=== PATIENT | female | born 1950 | race Caucasian/White ===

== ENCOUNTER 2021-08-12 05:12 | Observation (INO) ==
--- NOTE | 2021-07-12 11:40 | PAT Medication Instructions ---
Medication Instructions Date of Service July 12, 2021 Home Medications albuterol sulfate 90 mcg/actuation aerosol inhaler 2 puff INHALATION 6XD PRN atorvastatin 40 mg tablet 40 mg PO HS calcium carbonate 600 mg-vitamin D3 10 mcg (400 unit) tablet (Calcium 600 + D(3)) 1 tab PO BID citalopram 20 mg tablet 20 mg PO HS cyanocobalamin (vitamin B-12) 1,000 mcg tablet 1,000 mcg PO QAM empagliflozin 25 mg tablet (Jardiance) 25 mg PO QAM gabapentin 100 mg capsule 100 - 200 mg PO BID ibuprofen 200 mg tablet 800 mg PO BID loratadine 10 mg chewable tablet (Claritin) 10 mg PO HS metformin 500 mg tablet 2,000 mg PO HS multivitamin 1 tab PO QAM omega-3 fatty acids 1,000 mg PO BID ASK your surgeon for instructions ibuprofen 200 mg tablet 800 mg PO BID STOP taking 2 weeks before surgery omega-3 fatty acids 1,000 mg PO BID DO NOT take the morning of surgery calcium carbonate 600 mg-vitamin D3 10 mcg (400 unit) tablet (Calcium 600 + D( 3)) 1 tab PO BID cyanocobalamin (vitamin B-12) 1,000 mcg tablet 1,000 mcg PO QAM empagliflozin 25 mg tablet (Jardiance) 25 mg PO QAM multivitamin 1 tab PO QAM Take morning of surgery With a small sip of water, OTHERWISE NOTHING TO EAT OR DRINK AFTER MIDNIGHT: albuterol sulfate 90 mcg/actuation aerosol inhaler 2 puff INHALATION 6XD PRN(use if needed; please bring with you to hospital day of surgery if possible) gabapentin 100 mg capsule 100 - 200 mg PO BID Take evening before surgery albuterol sulfate 90 mcg/actuation aerosol inhaler 2 puff INHALATION 6XD PRN(if needed) atorvastatin 40 mg tablet 40 mg PO HS calcium carbonate 600 mg-vitamin D3 10 mcg (400 unit) tablet (Calcium 600 + D(3)) 1 tab PO BID citalopram 20 mg tablet 20 mg PO HS gabapentin 100 mg capsule 100 - 200 mg PO BID loratadine 10 mg chewable tablet (Claritin) 10 mg PO HS metformin 500 mg tablet 2,000 mg PO HS Other Notes If you have any questions please call us at [phone] or [phone] or [phone] or [phone]
--- NOTE | 2021-07-26 10:01 | Anesthesiology Consultation ---
Date of Service July 26, 2021 Assessment & Plan (1) Encounter for pre-operative examination: - check BSG am DOS. - abnormal CXR 07/26/2021: Abnormal lobular density overlying the AP window measuring 2.6 cm. Follow-up dedicated chest CT with contrast is recommended to assess for a mediastinal mass or lymphadenopathy. Optimization note completed, awaiting PCP pre-op evaluation. Generic message left requesting return call to pt. - COVID screening: Per assessment on 07/26/2021: Travel screen negative, no known COVID-19 positive contacts or current COVID-19 related symptoms in past 2 weeks. Patient vaccinated. Surgeon arranging preop COVID testing, scheduled 08/10/2021. Awaiting results. Chart Review Chart Review: Pending: Refer to Additional Notes / Consult section and Patient seen in Pre Admission Testing Teaching & Discussion Pre-Anesthesia Teaching/Discussion Notes: Instructed NPO after midnight before surgery, except medications with 15 cc of water. Medication instructions provided according to the PAT guidelines. History Surgery Operation Date: 08/12/21 09:45 Proposed Procedures p Right Total Hip Arthroplasty - Reinier Black DO Height/Weight Height: 5 ft 6 in Weight: 91.8 kg Allergies Allergy/AdvReac Type Severity Reaction Status Date / Time No Known Allergies Allergy Verified 07/12/21 10:24 Medications Home Medications Medication Instructions Recorded Confirmed Last Taken albuterol sulfate 90 mcg/actuation 2 puff INHALATION 6XD PRN 07/12/21 07/12/21 Unknown aerosol inhaler atorvastatin 40 mg tablet 40 mg PO HS 07/12/21 07/12/21 Unknown calcium carbonate 600 mg-vitamin 1 tab PO BID 07/12/21 07/12/21 Unknown D3 10 mcg (400 unit) tablet (Calcium 600 + D(3)) citalopram 20 mg tablet 20 mg PO HS 07/12/21 07/12/21 Unknown cyanocobalamin (vitamin B-12) 1,000 mcg PO QAM 07/12/21 07/12/21 Unknown 1,000 mcg tablet empagliflozin 25 mg tablet 25 mg PO QAM 07/12/21 07/12/21 Unknown (Jardiance) gabapentin 100 mg capsule 100 - 200 mg PO BID 07/12/21 07/12/21 Unknown ibuprofen 200 mg tablet 800 mg PO BID 07/12/21 07/12/21 Unknown loratadine 10 mg chewable tablet 10 mg PO HS 07/12/21 07/12/21 Unknown (Claritin) metformin 500 mg tablet 2,000 mg PO HS 07/12/21 07/12/21 Unknown multivitamin 1 tab PO QAM 07/12/21 07/12/21 Unknown omega-3 fatty acids 1,000 mg PO BID 07/12/21 07/12/21 Unknown Past Medical History Medical History (Updated 07/26/21 @ 10:04 by Dixie Pandya PA-C) Arthritis Asthma LAST INHALER USE MONTHS AGO Depression HX -UNDER CONTROL Diabetes mellitus, type 2 Hyperlipidemia SOB (shortness of breath) on exertion with 1 FOS, denies needing to stop and catch breath, ongoing x several yrs, pt feels is due to deconditioning, denies change or worsening Patient denies h/o stroke, seizures, heart attack, heart failure, HTN, blood clots or blood transfusions. Exercise / Class Metabolic Activity III < 4 Walking/Shop/Light housework (SOB with 1 FOS) Past Family History Family History Mother Family history of diabetes mellitus Father Family history of diabetes mellitus Past Surgical History Surgical History History of appendectomy History of bilateral tubal ligation History of colonoscopy History of open reduction and internal fixation (ORIF) procedure LEFT SMALL TOE Past Anesthesia History No Hx of Anesthesia Complications and No Family Hx of Anesthesia Complications History of PONV No Hx of PONV and No Hx of Motion Sickness Social History Smoking Status: Never smoker Do You Dip or Chew Tobacco: No Hx Alcohol Use: No Hx Substance Use: No Review of Systems Patient denies chest pain, shortness of breath, snoring, witnessed apneas, reflux, fever, chills, cough, wheezing, or palpitations. Physical Exam Vital Signs Vitals BP 112/73 P 92 TEMP 98.4 SP02 96% on RA RESP 17 Physical Full cervical extension range of motion without pain Full TMJ range of motion TMD 3.5 finger breaths Mallampati Score 3 Dentition: intact, two missing left upper back teeth, one chipped tooth in front, crowns throughout-denies any front; denies loose teeth, implants or bridges Lungs: normal respiratory effort. Clear throughout to auscultation, no adventitious breath sounds Cardiac: regular rate and rhythm, no murmurs noted Carotid arteries: negative bruit bilat Extremities: no distal extremity edema Lab Results Anesthesia Preop Results Results Anesthesia Widget: PT 10.4 Seconds (9.0-12.0) 07/26/21 PTT 25.4 Seconds (21.0-31.0) 07/26/21 INR 1.0 (0.9-1.1) 07/26/21 Urine Color Yellow 07/26/21 Urine Appearance Clear (Clear) 07/26/21 Urine pH 5.0 (4.5-7.5) 07/26/21 Urine Specific [place] 1.037 (1.000-1.030) H 07/26/21 Urine Protein Negative (Negative) 07/26/21 Urine Glucose (UA) 3+ (Negative) H 07/26/21 Urine Ketones Negative (Negative) 07/26/21 Urine Blood Negative (Negative) 07/26/21 Urine Nitrite Negative (Negative) 07/26/21 Urine Bilirubin Negative (Negative) 07/26/21 Urine Urobilinogen Negative (Negative) 07/26/21 Urine Leukocyte Esterase Negative (Negative) 07/26/21 Blood Type A Positive 07/26/21 Antibody Screen NEGATIVE 07/26/21 Testing Laboratory Results 07/19/2021 WBC: 6.1 H/H: 14.9/46 PLATELETS: 218 SODIUM: 141 POTASSIUM: 4.4 CHLORIDE: 103 CO2: 23 BUN: 17 CREATININE: 0.8 GLUCOSE: 198 ALBUMIN: 4.5 Electrocardiogram Date: 07/26/21 NSR, rate 80 bpm Chest X-Ray Date: 07/26/21 FINDINGS: There is an abnormal lobular density overlying the AP window measuring 2.6 cm. The heart is normal in size. No pleural effusions. No pneumothorax. The lungs are clear. IMPRESSION: Abnormal lobular density overlying the AP window measuring 2.6 cm. Follow-up dedicated chest CT with contrast is recommended to assess for a mediastinal mass or lymphadenopathy. This report was called/faxed to the referring physician following dictation.
--- NOTE | 2021-08-11 10:52 | History & Physical Report ---
Date of Service August 11, 2021 Assessment & Plan (1) Osteoarthritis of right hip: Plan: Schedule a right MONICA for 08.12.21. All potential risks, benefits, complications, alternatives, and rehab have been discussed with the patient and she wishes to proceed. Plan for ASA 81 mg BID x 4 wks for post op DVT prophylaxis. History of Present Illness Chief Complaint: right hip pain Primary Care Provider: Mee Ortiz PA-C This is a patient who has a hx of chronic right hip/groin pain. She has been treated conservatively for hip DJD. However, she has failed all conservative management. She is now being set up for surgical management. Allergies Allergy/AdvReac Type Severity Reaction Status Date / Time No Known Allergies Allergy Verified 07/12/21 10:24 Home Medications Medication Instructions Recorded Confirmed Type albuterol sulfate 90 mcg/actuation 2 puff INHALATION 6XD PRN 07/12/21 07/12/21 History aerosol inhaler atorvastatin 40 mg tablet 40 mg PO HS 07/12/21 07/12/21 History calcium carbonate 600 mg-vitamin 1 tab PO BID 07/12/21 07/12/21 History D3 10 mcg (400 unit) tablet (Calcium 600 + D(3)) citalopram 20 mg tablet 20 mg PO HS 07/12/21 07/12/21 History cyanocobalamin (vitamin B-12) 1,000 mcg PO QAM 07/12/21 07/12/21 History 1,000 mcg tablet empagliflozin 25 mg tablet 25 mg PO QAM 07/12/21 07/12/21 History (Jardiance) gabapentin 100 mg capsule 100 - 200 mg PO BID 07/12/21 07/12/21 History ibuprofen 200 mg tablet 800 mg PO BID 07/12/21 07/12/21 History loratadine 10 mg chewable tablet 10 mg PO HS 07/12/21 07/12/21 History (Claritin) metformin 500 mg tablet 2,000 mg PO HS 07/12/21 07/12/21 History multivitamin 1 tab PO QAM 07/12/21 07/12/21 History omega-3 fatty acids 1,000 mg PO BID 07/12/21 07/12/21 History Past Med/Surg History Medical History (Updated 08/11/21 @ 10:45 by Gage L Vela, PA-C) Arthritis Asthma LAST INHALER USE MONTHS AGO Depression HX -UNDER CONTROL Diabetes mellitus, type 2 Hyperlipidemia SOB (shortness of breath) on exertion with 1 FOS, denies needing to stop and catch breath, ongoing x several yrs, pt feels is due to deconditioning, denies change or worsening Surgical History History of appendectomy History of bilateral tubal ligation History of colonoscopy History of open reduction and internal fixation (ORIF) procedure LEFT SMALL TOE Family History Mother Family history of diabetes mellitus Father Family history of diabetes mellitus Social History (Updated 07/12/21 @ 10:45 by Zandra Ladd, NU) Smoking Status: Never smoker Second Hand Exposure: No; Hx Alcohol Use: No Hx Substance Use: No Preferred Language: [place] Communication Ability: Effective Water Attendant Required: No Beliefs That Will Affect Care: None Current Living Situation: Spouse and Family current occupational status: employed current occupation: [employer] Feels Safe at Home: Yes Assistive Devices: Brace/Splint/Immobilizer, Cane and Glasses Physical Exam Constitutional: well developed and well nourished; no acute distress ENMT: external ear and nose normal, oropharynx normal Neck: trachea midline Respiratory: normal respiratory effort, lungs clear to auscultation Cardiovascular: Rate/Rhythm: regular rate and regular rhythm Gastrointestinal (Abdomen): normal bowel sounds, soft, nontender, no hepatosplenomegaly Musculoskeletal: Hip: + limited ROM of hip (right internal/external rotation), + joint line tenderness (right groin) and + TORI test positive (right); no skin erythema and no ecchymosis Skin: no rashes, warm and dry Trauma: no evidence of skin trauma Neurologic: normal touch/pain/proprioception Psychiatric: A+Ox3, euthymic affect Speech: normal rate/rhythm/volume of speech Lymphatic: no cervical or axillary lymphadenopathy
[2021-08-12] MEDS ORDERED: GABAPENTIN 300 MG CAP PO SCH (06:00)
[2021-08-12] MEDS ORDERED: oxyCODONE HCL 10 MG TABCR (OxyCONTIN) PO SCH (06:00)
[2021-08-12] MEDS ORDERED: METOCLOPRAMIDE HCL 10 MG TABLET PO SCH (06:00)
[2021-08-12] MEDS ORDERED: ceFAZolin 2000MG 2,000 MG/15 ML SYR IV SCH (06:00)
[2021-08-12] MEDS ORDERED: LR 500ML BOLUS, THEN 15ML/HR IV SCH (06:00)
[2021-08-12] MEDS ORDERED: TRANEXAMIC ACID 1,000 MG **IV Intra-op IV SCH (06:00)
[2021-08-12] MEDS ORDERED: TRANEXAMIC ACID 1,000 MG **IV Pre-op IV SCH (06:00)
[2021-08-12] MEDS ORDERED: CeleBREX 200 MG CAP PO SCH (06:00)
[2021-08-12] MEDS ORDERED: ACETAMINOPHEN 500 MG TAB PO SCH (06:00)
[2021-08-12] MEDS ORDERED: ROPIVACAINE 0.5% HCL/PF 150 MG, BUPIVACAINE 0.75% MPF 20 ML, EPINEPHrine 30MG/30ML (OR ... INSTIL SCH (06:00)
[2021-08-12] MEDS ORDERED: FAMOTIDINE 20 MG TAB PO SCH (06:00)
[2021-08-12] MEDS ORDERED: BUPIVACAINE 0.5 % 5 MG/1 ML PF 10ML VIAL ONE (06:35)
[2021-08-12] MEDS ORDERED: fentaNYL citrate 100 MCG/2 ML VIAL IV PRN (06:40)
[2021-08-12] MEDS ORDERED: ATROPINE SULFATE 0.1 MG/ML 10ML SYR IV PRN (06:40)
[2021-08-12] MEDS ORDERED: ONDANSETRON INJ 2 MG/ML 2 ML VIAL IV PRN ×2 (06:40→13:25)
[2021-08-12] MEDS ORDERED: ePHEDrine sulfate 50 MG/ML AMP IV PRN (06:40)
[2021-08-12] MEDS ORDERED: fentaNYL citrate 100 MCG/2 ML VIAL ONE (06:50)
[2021-08-12] MEDS ORDERED: MIDAZOLAM HCL 1 MG/ML 2ML VIAL ONE (06:50)
[2021-08-12] MEDS ORDERED: LIDOCAINE 2% 2 ML VIAL/AMP(20MG/ML) INFIL ONE (06:50)
[2021-08-12] MEDS ORDERED: PROPOFOL IV EMULSION 10 MG/ML 20 ML VIAL IV ONE ×6 (06:50→10:54)
[2021-08-12] MEDS ORDERED: ceFAZolin 330 MG/ML 1 GM VIAL ONE (07:01)
[2021-08-12] MEDS ORDERED: ORTHO JOINT ANESTHETIC ONE (07:01)
--- NOTE | 2021-08-12 07:24 | History & Physical Bridge Note ---
Date of Service August 12, 2021 History & Physical Bridge Note I have examined the patient, reviewed the History & Physical and in the interval since the performance of the History & Physical I have noted the following changes of clinical significance: no changes noted
[2021-08-12] MEDS ORDERED: TRANEXAMIC ACID / 0.7% NACL 1000MG/100ML BAG IV ONE ×2 (07:47)
[2021-08-12] MEDS ORDERED: ONDANSETRON INJ 2 MG/ML 2 ML VIAL ONE (08:40)
[2021-08-12] MEDS ORDERED: PHENYLEPHRINE HCL 10 MG/ML VIAL ONE (08:41)
--- NOTE | 2021-08-12 11:01 | Post Operative Brief Note ---
Immediate Post Op Note v1 Date of Surgery August 12, 2021 Pre & Post Diagnosis Operation Date: 08/12/21 07:15 Pre-Op Diagnosis: Right hip severe osteoarthritis, leg length discrepancy right lower extremity, right hip pain Post-Op Diagnosis: Right hip severe osteoarthritis, leg length discrepancy right lower extremity, right hip pain I identified the patient and participated in the time-out.: Yes Procedure Operation Date: 08/12/21 07:15 Actual Procedures p Right Total Hip Arthroplasty with Seng press-fit Accolade II 132 degree, neck size 6 femoral stem, 56 mm titanium acetabular shell, Biolox delta 36 mm x -5 mm head, 6.5 millimeters screws x2 and Trident X3 10 degree polyethylene liner 56 mm. Reinier Black DO Surgeon Reinier Black DO Ppap Coordinator Gage Vela PA-C Estimated Blood Loss 75 Findings Consistent with Post-Op Diagnosis Specimens Bone and tissue right hip Drains Hemovac Drain (X2) and Other (Clari drain) Anesthesia Type MAC Spinal Regional Complications none Disposition Accompanied Patient To Recovery: No Overlapping Procedure I was present for: the critical portions of procedure. I was immediately available: during the entire case.
--- NOTE | 2021-08-12 11:54 | Operative Report (OR) ---
DATE OF PROCEDURE: 08/12/2021. PREOPERATIVE DIAGNOSES: 1. Right hip severe osteoarthritis. 2. Right leg length discrepancy. 3. Right hip pain. POSTOPERATIVE DIAGNOSES: 1. Right hip severe osteoarthritis. 2. Right leg length discrepancy. 3. Right hip pain. PROCEDURE: Right total hip arthroplasty with a [place] press-fit Accolade II, 132-degree neck angle, size 6 femoral stem, 56 mm Tritanium acetabular shell, Biolox Delta 36 mm x negative 5 mm head, 6.5 mm screws x2 and a Trident X3 10- degree polyethylene liner, 56 mm. SURGEON: Reinier Black DO. GRANITE POLISHER: Gage Vela PA-C who was present for patient positioning, sterile prep and drape, management of retractors and instruments. He was present through the critical portions of the case including wound closure, application of sterile dressing and transport of the patient to recovery. ANESTHESIA: Spinal MAC, regional. SPECIMENS: Bone and tissue, right hip. DRAINS: Hemovac x2 and Prevena drain. COMPLICATIONS: None. BLOOD LOSS: 75 mL. PERTINENT HISTORY: This is a 70-year-old woman with chronic progressive and worsening right hip osteoarthritis who eventually developed leg length discrepancy due to severe degenerative arthritis. She attempted and failed conservative management including observation, rest, modification of activities, anti-inflammatories, physician-directed home exercises, physical therapy and use of an assistive device. Radiographs demonstrate severe osteoarthritis with complete loss of joint space, marginal osteophytes, subchondral sclerosis, limb shortening and elevation of the center of rotation of the acetabulum and deformity of the femoral neck and head. Subchondral cysts were also evident. The patient was scheduled for surgery as indicated. All potential risks, benefits, complications, alternatives, rehab potential for incomplete relief symptoms, need for further surgery, DVT, PE, , persistent pain, swelling, scarring, weakness, neurovascular injury, wound complications, hardware failure, nonunion, malunion, bone fracture were discussed with the patient. The patient decided to proceed with the procedure as indicated. PROCEDURE: The patient was taken to the Operating Suite and placed supine on the Operating Room table after identification of the consent and identification of the proper operative site the patient was sedated. The patient had previously received a spinal epidural anesthetic. The patient was then placed in the left lateral decubitus position with the affected side up and Stulberg positioning device then used to maintain lateral position of the patient. All bony prominences were properly padded and protected. Axillary roll was placed as standard and the leg lengths were determined to be essentially equal and then the right hip was then sterilely prepped and draped in the usual fashion. 10- blade scalpel incision was made laterally over the greater trochanter. The incision was deepened through the subcutaneous tissue and meticulous hemostasis with electrocautery. Further deepening of the wound through the layer of the fascia was performed with electrocautery and iliotibial band was then incised with electrocautery. Next, Charnley retractor was placed bother anteriorly and posteriorly at the level of the gluteus tendon. Next, electrocautery was used to make an incision in the vastus lateralis and then sweep was made toward the anterior aspect of the patient along the course of the femoral neck and head. Abductor split was then completed. The gluteus minimus and capsule were then incised and then soft tissue was dissected anteriorly. Next as the soft tissue was dissected anteriorly the lesser trochanter was clearly identified and hip was dislocated with relative ease. Hypertrophic osteophytes were noted circumferentially. The hip joint was noted to be noticeably tight. Next the sagittal saw was used to resect the proximal portion of the femoral neck and head approximately one fingerbreadth proximal to the lesser trochanter. Head was then removed and next the labrum was excised from the acetabulum with a 20 blade scalpel and long forceps. Next the wound was irrigated with pulsatile lavage and the pulvinar was then excised from the acetabulum. Appropriate retractors were placed anteriorly superiorly and posteriorly. Next initial acetabular reamer was placed 44 mm medialized to the medial wall and then sequential reaming was performed to size 56 mm. Trial cage was then placed and noted to be stable with excellent fit. Next the wound was irrigated with pulsatile lavage with bacitracin additive and 56 mm Seng press-fit Accolade II was impacted and then two 6.5 mm screws were used to stabilize the acetabular shell. Next Trident X3 10-degree polyethylene liner, 56 mm was impacted. Lap sponge was placed over to protect it. Next, attention was turned toward the proximal femur. Box osteotome was used to resect proximal portion of bone followed by first pass small reamer. Next, sequential broaching was performed up to size 6 and the 6 trial was placed followed by -5mm X 36 mm trial head. Next, it was reduced and had excellent fit and feel with minimal shuck and excellent stability in all planes and range of motion. Leg lengths were restored and next all trial implants were removed. The wound was copiously irrigated with pulsatile lavage and size 6 [place] press-fit Accolade II, 132-degree neck angle, size 6 femoral stem, 56 mm Tritanium acetabular shell was impacted. Next, Delta 36 mm x negative 5 mm head, 6.5 mm screws x2 and a Trident X3 10-degree polyethylene liner, 56 mm was impacted. The construct was reduced. Range of motion was performed and noted to be completely stable with excellent range of motion, improved to greater degree than prior to surgery. Two 10 Italian single Hemovac drains were placed exiting anterolaterally. Wound was irrigated with pulsatile lavage. Next a #5 FiberWire suture was used to close the capsule and gluteus minimum via two small bone gunnels made with 2.4 mm drill bit in the greater trochanter. After #5 FiberWire closure was completed and noted to be stable then 10 Italian drains were placed followed by closure of the vastus lateralis and the gluteus medius. This was closed with #1 Vicryl sutures. Next, the iliotibial band was closed using interrupted [id number] #1 Vicryl sutures. Next, final irrigation was performed with pulsatile lavage and dermis was closed using buried interrupted 2-0 Vicryl suture. The skin was closed with skin reza. Sterile compressive dressing was applied. The patient was then placed supine and taken to recovery in stable condition. Job ID: [id number] [facility]ITAL[facility]arocho
--- NOTE | 2021-08-12 12:30 | XRay Report ---
AP PELVIS, CROSSTABLE LATERAL RIGHT HIP History: Right total hip arthroplasty. Degenerative arthritis. Postop. FINDINGS: The patient is status post a right total hip arthroplasty. The hardware is intact. No fract ure or dislocation. Skin reza and surgical drains are in place. IMPRESSION: Right total hip arthroplasty. No evidence for hardware complication ACT 112: Negative or not required by law. Electronically signed by: Connor Bowie M.D. 08/12/2021 12:29 PM
--- NOTE | 2021-08-12 12:32 | Anesthesiology Progress Note ---
Date of Service August 12, 2021 Anesthesia Post Procedure Vital Signs Vital Signs: Temp Pulse Pulse Resp BP Pulse Ox 08/12/21 12:30 70 14 152/69 H 98 08/12/21 12:15 64 14 166/73 H 95 08/12/21 12:05 97.3 F L 75 14 155/85 H 97 08/12/21 11:55 70 14 133/64 97 08/12/21 11:45 70 14 137/68 97 08/12/21 11:35 97.2 F L 67 14 144/77 H 96 08/12/21 11:25 67 12 154/79 H 100 08/12/21 11:15 96.8 F L 68 10 L 130/77 98 08/12/21 05:38 98.1 F 104 H 20 153/80 H 93 Transfer of Care Handoff Completed per policy Notes Mental Status: alert / awake / arousable and participated in evaluation Patient Amnestic to Procedure: Yes Nausea / Vomiting: adequately controlled Pain: adequately controlled Airway Patency, RR, SpO2: stable & adequate BP & HR: stable & adequate Hydration State: stable & adequate Neuraxial Anesthesia: was administered and sensory block is resolving Anesthetic Complications: no major complications apparent and Pt Satisfied with anesthetic care
[2021-08-12] MEDS ORDERED: ALUMINUM/MAGNESIUM SUSP 30 ML UDC PO PRN (13:25)
[2021-08-12] MEDS ORDERED: PHARMACY GLYCEMIC MGMT CONSULT PRN (13:25)
[2021-08-12] MEDS ORDERED: diphenhydrAMINE Capsule 25 MG CAP PO PRN (13:25)
[2021-08-12] MEDS ORDERED: METOCLOPRAMIDE HCL INJ 5 MG/ML 2 ML VIAL IV PRN (13:25)
[2021-08-12] MEDS ORDERED: ALBUTEROL HFA 8 GM INHALER INH PRN (13:25)
[2021-08-12] MEDS ORDERED: NALOXONE HCL 0.4 MG/1 ML VIAL/CARP IV PRN (13:25)
[2021-08-12] MEDS ORDERED: KETOROLAC TROMETHAMINE 15 MG/ML VIAL IV PRN (13:25)
[2021-08-12] MEDS ORDERED: HYDROmorphone INJ 0.5 MG/0.5 ML SYR IV PRN (13:25)
[2021-08-12] MEDS ORDERED: bisacodyL 10 MG SUPP PR PRN (13:25)
[2021-08-12] MEDS ORDERED: MAGNESIUM HYDROXIDE SUSP 30 ML UDC PO PRN (13:25)
[2021-08-12] MEDS: SODIUM CHLORIDE 0.9% 1000ML 1,000 ML IV SCH (13:35)
[2021-08-12] MEDS: ACETAMINOPHEN 500 MG TAB PO SCH ×2 (14:26→21:38)
--- NOTE | 2021-08-12 14:41 | Pharmacy Report ---
Glycemic Ortho Sign Off Note - Date of Service August 12, 2021 - Scope Glycemic Pharmacist consulted for glycemic control and to write orders per [facility] inpatient glycemic control protocol. - Objective Accuchecks BSG (last 24hrs):: 08/12/21 08/12/21 08/12/21 05:42 11:25 13:46 POC Glucose 169 H 179 H 141 H - Assessment * Pt is maintained on oral antidiabeticagent[s]as anoutpatient with good control per recent A1c * Oral agents are not recommended for inpatient use d/t drug interactions, changing PO intake, and difficulty titrating for acute hyper/hypoglycemia. * Recommended regimen for inpatient use is SQ insulin * Low/moderate stress weight based insulin dosing appropriate since patient has minimal risk factors for insulin resistance (i.e. no steroids). * Appropriate to DC insulin and resume outpatient antidiabetic regimen at discharge * Goal is to maintain BSGs <200 mg/dl (ideally <150 mg/dl) to prevent post op complications - Plan For Inpatient Glycemic Control * Basal insulin * Not needed based on A1c, pre-op BSGs, and minimal risk factors for insulin resistance * Bolus insulin * Plan to use a stress of 2 dosing for novolog * 110-140 goal / CF 25 / CR 9 * Pharmacy has entered glycemic orders and is signing off of the glycemic consult. We will no longer be making adjustments to inpatient regimen. Please feel free to re-consult if needed. Thank you.
[2021-08-12] MEDS ORDERED: DEXTROSE 50% 50 ML SYRINGE IV PRN (14:45)
[2021-08-12] MEDS ORDERED: GLUCOSE 10 TABS/TUBE PO PRN (14:45)
[2021-08-12] MEDS ORDERED: CARBOHYDRATES FOR HYPOGLYCEMIA PO PRN (14:45)
[2021-08-12] MEDS ORDERED: GLUCAGON FOR INJ 1 MG VIAL IM PRN (14:45)
[2021-08-12] MEDS ORDERED: GLUCOSE 40% GEL 15 GM TUBE PO PRN (14:45)
[2021-08-12] MEDS ORDERED: INSULIN ASPART PER UNIT ONE (14:50)
[2021-08-12] MEDS: oxyCODONE HCL IR 5 MG TAB (IMMEDIATE RELEASE) PO PRN (14:51)
--- NOTE | 2021-08-12 15:08 | Consultation ---
Date of Consultation August 12, 2021 Assessment & Plan (1) S/P total hip arthroplasty: Post op day# 0 S/P Right total hip arthroplasty by Dr Black -pain management per ortho -wound management per ortho -PT/OT as appropriate -DVT prophylaxis per ortho -incentive spirometry -monitor H&H for acute blood loss anemia; pre-op Hgb: 14.9 (2) Diabetes mellitus, type 2: A1c: 7.8 on 07/2021 -Hold metformin, Jardiance -Novolog sliding scale per protocol. Glycemic pharmacist placed initial orders and will be signing off. We will follow. (3) Hyperlipidemia: -Continue atorvastatin (4) Asthma: No sign of exacerbation -Continue albuterol as needed DVT Prophylaxis -SCDs per ortho Disposition per primary service Follows with Mee Ortiz PA-C for routine care Pt was seen and care coordinated with Dr Tony. See addendum Thank you for this consultation. We will follow the patient with you during their hospital stay. You can reach a member of the [facility]ist Team 11/12 via [employer] Supervising Physician Co-Signing Physician Notes Attending addendum: The patient was seen and examined in medical floor She is a status post right total hip arthroplasty Complains of pain in the right hip but no numbness and or tingling in the extremities She denies any other symptoms On examination Lying in bed with minimal discomfort Hemodynamically stable Chestclear to auscultate bilaterally HeartS1, S2 no murmur Abdomenbenign Extremitiestrace edema bilaterally CNSalert, awake and oriented x3 Her preop EKG reviewed, Remains medically stable following right hip arthroplasty with significant medical history of diabetes type 2, hyperlipidemia and asthma We will monitor labs Agree with assessment and plan as outlined above by Geneva Tony History of Present Illness Requesting Physician: Dr Black Reason for Consultation: post op medical management Attending Physician: Reinier Black DO History of Present Illness Patient is 70-year-old female with PMH DM II, dyslipidemia seen in medical consultation s/p right total hip arthroplasty today by Dr. Black. Post op reports doing well. Just received pain medication. Denies nausea, vomiting. Has been able to retain liquids. Denies fever/chills, diaphoresis, diarrhea, FELICIANO, dizziness, syncope, vision changes, neck pain, CP, SOB, palpitations, cough, sore throat, rhinorrhea, abdominal pain, paresthesias, weakness, extremity edema, rashes, urinary symptoms. Allergies Allergy/AdvReac Type Severity Reaction Status Date / Time No Known Allergies Allergy Verified 08/12/21 05:41 Home Medications Medication Instructions Recorded Confirmed Type albuterol sulfate 90 mcg/actuation 2 puff INHALATION 6XD PRN 07/12/21 08/12/21 History aerosol inhaler atorvastatin 40 mg tablet 40 mg PO HS 07/12/21 08/12/21 History calcium carbonate 600 mg-vitamin 1 tab PO BID 07/12/21 08/12/21 History D3 10 mcg (400 unit) tablet (Calcium 600 + D(3)) citalopram 20 mg tablet 20 mg PO HS 07/12/21 08/12/21 History cyanocobalamin (vitamin B-12) 1,000 mcg PO QAM 07/12/21 08/12/21 History 1,000 mcg tablet empagliflozin 25 mg tablet 25 mg PO QAM 07/12/21 08/12/21 History (Jardiance) gabapentin 100 mg capsule 100 - 200 mg PO BID 07/12/21 08/12/21 History ibuprofen 200 mg tablet 800 mg PO BID 07/12/21 08/12/21 History loratadine 10 mg chewable tablet 10 mg PO HS 07/12/21 08/12/21 History (Claritin) metformin 500 mg tablet 2,000 mg PO HS 07/12/21 08/12/21 History multivitamin 1 tab PO QAM 07/12/21 08/12/21 History omega-3 fatty acids 1,000 mg PO BID 07/12/21 08/12/21 History Patient History Medical History (Updated 08/12/21 @ 15:31 by Geneva Begum PA-C) Arthritis Asthma LAST INHALER USE MONTHS AGO Depression HX -UNDER CONTROL Diabetes mellitus, type 2 Hyperlipidemia SOB (shortness of breath) on exertion with 1 FOS, denies needing to stop and catch breath, ongoing x several yrs, pt feels is due to deconditioning, denies change or worsening Surgical History (Updated 08/12/21 @ 15:31 by Geneva Begum PA-C) History of appendectomy History of bilateral tubal ligation History of colonoscopy History of open reduction and internal fixation (ORIF) procedure LEFT SMALL TOE Family History Mother Family history of diabetes mellitus Father Family history of diabetes mellitus Social History Smoking Status: Never smoker Second Hand Exposure: No; Do You Dip or Chew Tobacco: No; Hx Alcohol Use: No Hx Substance Use: No Preferred Language: Chinese Communication Ability: Effective Meter Tester Polyphase Required: No Beliefs That Will Affect Care: None marital status: Current Living Situation: Spouse and Family current occupational status: employed current occupation: LOGISTICS ASSISTANT [employer] Other Information That Helps Us Care for You: No Feels Safe at Home: Yes Safety Concerns: Feels Safe At This Time Assistive Devices: Cane and Walker Assistive Devices Comment: BRACE RIGHT KNEE FOR WORK/CANE PRN Review of Systems Review of Systems: All systems reviewed & are unremarkable except as noted in HPI & below Physical Exam Physical Exam: General: no distress, WDWN Head: normocephalic, atraumatic Eyes: conjunctiva non-injected, anicteric ENT: normal inspection external ears, nose, mucous membranes moist Neck: supple, trachea midline Lungs: clear, no respiratory distress, no wheezing/rhonchi/rales CV: RRR, no murmur Abd: normal BS, soft, non-tender Ext: no calf tenderness, RLE: +surgical dressing and TIKA wrap in place, +hemovac in place, pedal pulses intact, sensation to light touch intact Neuro: A&O x 3, no focal deficits noted, normal affect Skin: warm, dry Results & Data ([facility]) Vital Signs (Past 12 Hours) Vital Signs Temp Pulse Pulse Resp BP Pulse Ox 08/12/21 14:24 36.3 C L 82 16 141/82 H 96 08/12/21 13:48 36.4 C L 76 16 142/84 H 97 08/12/21 13:25 36.4 C L 74 16 147/84 H 97 08/12/21 13:00 74 14 144/77 H 94 08/12/21 12:45 71 14 157/70 H 95 08/12/21 12:30 70 14 152/69 H 98 08/12/21 12:15 64 14 166/73 H 95 08/12/21 12:05 36.3 C L 75 14 155/85 H 97 08/12/21 11:55 70 14 133/64 97 08/12/21 11:45 70 14 137/68 97 08/12/21 11:35 36.2 C L 67 14 144/77 H 96 08/12/21 11:25 67 12 154/79 H 100 08/12/21 11:15 36.0 C L 68 10 L 130/77 98 08/12/21 05:38 36.7 C 104 H 20 153/80 H 93 Diagnostic Findings Hip/Pelvis X-Ray 08/12/21 11:32 AP PELVIS, CROSSTABLE LATERAL RIGHT HIP History: Right total hip arthroplasty. Degenerative arthritis. Postop. FINDINGS: The patient is status post a right total hip arthroplasty. The hardware is intact. No fracture or dislocation. Skin reza and surgical drains are in place. IMPRESSION: Right total hip arthroplasty. No evidence for hardware complication ACT 112: Negative or not required by law. Electronically signed by: Connor Bowie M.D. 08/12/2021 12:29 PM
[2021-08-12] MEDS ORDERED: TRANEXAMIC ACID / 0.7% NACL 1,000 MG/100 ML BAG IV SCH (17:00)
[2021-08-12] MEDS: INSULIN ASPART PER UNIT SC SCH ×2 (17:50→21:46)
[2021-08-12] MEDS: ceFAZolin 2000MG 2,000 MG/15 ML SYR IV SCH (18:05)
[2021-08-12] MEDS ORDERED: LORATADINE 10 MG TAB PO SCH (21:00)
[2021-08-12] MEDS ORDERED: CITALOPRAM 20 MG TAB PO SCH (21:00)
[2021-08-12] MEDS ORDERED: ATORVASTATIN 40 MG TAB PO SCH (21:00)
[2021-08-12] MEDS ORDERED: metFORMIN HCL 500 MG TAB PO SCH (21:00)
[2021-08-12] MEDS ORDERED: SENNA 8.6 MG TAB PO SCH (21:00)
[2021-08-12] MEDS: CeleBREX 200 MG CAP PO SCH (21:34)
[2021-08-12] MEDS: DOCUSATE SODIUM 100 MG CAP PO SCH (21:35)
[2021-08-12] MEDS: GABAPENTIN 100 MG CAP PO SCH (21:35)
[2021-08-12] MEDS: ASPIRIN 81 MG ECTAB PO SCH (21:36)
[2021-08-12] MEDS: CALCIUM 600MG + VIT D 400 IU TAB PO SCH (21:36)
[2021-08-12] MEDS: OMEGA-3 (PURIFIED FISH OIL) 1 GM CAP PO SCH (21:36)
[2021-08-13] MEDS: ceFAZolin 2000MG 2,000 MG/15 ML SYR IV SCH (00:48)
[2021-08-13] MEDS: oxyCODONE HCL IR 5 MG TAB (IMMEDIATE RELEASE) PO PRN ×2 (03:50→12:52)
[2021-08-13] MEDS: SODIUM CHLORIDE 0.9% 1000ML 1,000 ML IV SCH (05:17)
[2021-08-13] MEDS: ACETAMINOPHEN 500 MG TAB PO SCH (05:52)
[2021-08-13] MEDS: OMEGA-3 (PURIFIED FISH OIL) 1 GM CAP PO SCH (08:19)
[2021-08-13] MEDS: CeleBREX 200 MG CAP PO SCH (08:19)
[2021-08-13] MEDS: CALCIUM 600MG + VIT D 400 IU TAB PO SCH (08:19)
[2021-08-13] MEDS: DOCUSATE SODIUM 100 MG CAP PO SCH (08:19)
[2021-08-13] MEDS: GABAPENTIN 100 MG CAP PO SCH (08:19)
[2021-08-13] MEDS: ASPIRIN 81 MG ECTAB PO SCH (08:19)
[2021-08-13 08:32] LABS: Basophils # (auto) 0.01 K/uL (0-0.2); Basophils % (auto) 0.1 %; Eosinophils # (auto) 0.01 K/uL (0-0.5); Eosinophils % (auto) 0.1 %; Hematocrit (blood only) 34.5 % (37-47); Hemoglobin 11.2 g/dL (12.0-16.0); Immature Granulocytes # (auto) 0.02 K/uL (0.00-0.02); Immature Granulocytes % (auto) 0.2 %; Lymphocytes # (auto) 0.97 K/uL (1.2-3.4); Mean Corpuscular Hemoglobin 28.8 pg (25-34); Mean Corpuscular Hgb Conc 32.5 g/dL (32-36); Mean Corpuscular Volume 88.7 fL (80-100); Mean Platelet Volume 10.8 fL (7.4-10.4); Monocytes # (auto) 0.66 K/uL (0.11-0.59); Monocytes % (auto) 8.2 %; Neutrophils # (auto) 6.41 K/uL (1.4-6.5); Neutrophils % (auto) 79.4 %; Platelet Count 174 K/uL (130-400); RDW Coefficient of Variation 14.3 % (11.5-14.5); RDW Standard Deviation 46.3 fL (36.4-46.3); Red Blood Count 3.89 M/uL (4.2-5.4); White Blood Count 8.08 K/uL (4.8-10.8)
[2021-08-13 09:00] LABS: Calcium 8.2 mg/dl (8.5-10.1); Creatinine Clr Calc Pharmacy 87.6 ml/min; Est GFR (African American) 103.7 ml/min; Est GFR (Non-African American) 89.4 ml/min
[2021-08-13] MEDS ORDERED: NON-FORMULARY MEDICATION (Multivitamin Tablet) PO SCH (09:00)
[2021-08-13] MEDS ORDERED: MULTIVITAMIN TAB PO SCH (09:00)
[2021-08-13] MEDS ORDERED: CYANOCOBALAMIN (B-12) 500 MCG TABLET PO SCH (09:00)
[2021-08-13] MEDS: INSULIN ASPART PER UNIT SC SCH ×2 (09:10→12:49)
--- NOTE | 2021-08-13 11:14 | Orthopedic Progress Note ---
Date of Service August 13, 2021 Assessment & Plan (1) Osteoarthritis of right hip: Plan: Postop day #1 post right total hip arthroplasty PT/OT--weight-bear as tolerated right lower extremity DVT prophylaxisTED stockings and aspirin 81 mg twice daily x30 days. Pain controloral oxycodone and Tylenol Hemovac will be removed today Discharge planningplan for home with home health. If PT goes well today, she may be discharged later today. Admission and Anticipated Discharge Date Admission Date: August 12, 2021 Subjective Patient states that the right hip pain is controlled. She was very happy with her pain control and ability to ambulate last evening. This morning, she has some increase in right hip pain. She is work with OT but PT is coming back later this afternoon to work with her. Denies chest pain, shortness of breath, lightheadedness. Physical Exam Constitutional: well developed and well nourished; no acute distress ENMT: external ear and nose normal, oropharynx normal Neck: trachea midline Respiratory: normal respiratory effort, lungs clear to auscultation Cardiovascular: Rate/Rhythm: regular rate and regular rhythm Gastrointestinal (Abdomen): normal bowel sounds, soft, nontender, no hepatosplenomegaly Musculoskeletal: Hip: + surgical incision (Prevena dressing in place and functioning.) and + surgical drain present (Hemovac is drained approximately 60 cc in 24 hours); no skin erythema and no ecchymosis Skin: no rashes, warm and dry Trauma: no evidence of skin trauma Neurologic: normal touch/pain/proprioception Psychiatric: A+Ox3, euthymic affect Speech: normal rate/rhythm/volume of speech Lymphatic: no cervical or axillary lymphadenopathy Results & Data ([facility]) Vital Signs (Past 12 Hours) Vital Signs Temp Pulse Resp BP Pulse Ox 08/13/21 07:37 36.6 C 74 16 113/72 94 08/13/21 03:12 36.7 C 73 17 111/65 93
--- NOTE | 2021-08-13 16:19 | Hospitalist Progress Note ---
Date of Service August 13, 2021 Assessment & Plan (1) S/P total hip arthroplasty: Plan: Post op day# 1 S/P Right total hip arthroplasty by Dr Black -pain management per ortho -wound management per ortho -PT/OT as appropriate -DVT prophylaxis per ortho -incentive spirometry -monitor H&H for acute blood loss anemia; pre-op Hgb: 14.9 #. Acute blood loss anemia likely 2/2 post op status Repeat Hb 11.2; pre-op Hb 14.9 CBC in 3-5 days upon discharge to follow up on Hb stability Pt without any headache/dizziness or other symptoms. (2) Diabetes mellitus, type 2: Plan: A1c: 7.8 on 07/2021 -Hold metformin, Jardiance -Novolog sliding scale per protocol. Glycemic pharmacist placed initial orders and will be signing off. We will follow. (3) Hyperlipidemia: Plan: -Continue atorvastatin (4) Asthma: Plan: No sign of exacerbation -Continue albuterol as needed DVT Prophylaxis -SCDs per ortho Disposition per primary service Follows with Mee Ortiz PA-C for routine care Thank you for this consultation. We will follow the patient with you during their hospital stay. You can reach a [facility] via [employer] Admission and Anticipated Discharge Date Admission Date: August 12, 2021 Subjective Patient seen and examined at bedside as a follow-up of status post total hip arthroplasty on right side. Patient lying in bed, on room air, NAD, no new acute events overnight. Patient reports eating okay and moving gas. Patient has not moved bowel after the gary indio. It is POD 1 for the patient. Patient denies any headache/dizziness/chest pain/palpitations/belly pain/other review of symptoms. Physical Exam Physical Exam: GENERAL: Alert and oriented x3. NAD, on RA. HEENT: No pallor, no icterus. Pupils equal, round and reactive to light. Oral mucosa moist. NECK: No JVD, no neck masses. HEART: S1 and S2 heard. Regular rate and rhythm. No murmur, no gallop. RESPIRATORY SYSTEM: Normal AP diameter. No accessory muscle use. No wheezing, no crackles. ABDOMEN: Soft, bowel sounds present, nontender, no distention. CENTRAL NERVOUS SYSTEM: No facial droop. Speech is clear. Obeys simple commands. Moves extremities. EXTREMITIES: No edema, no erythema seen. Right hip with clean dressing with Hemovac drain in situ with minimal serosanguineous collection noted. Results & Data Results & Data ([facility]) Vital Signs (Past 12 Hours) Vital Signs Temp Pulse Resp BP Pulse Ox 08/13/21 15:47 36.6 C 74 16 113/72 94 08/13/21 07:37 36.6 C 74 16 113/72 94
--- NOTE | 2021-08-16 16:05 | Discharge Summary ---
Date of Service August 16, 2021 Admission HPI Per Admitting Provider This is a patient who has a hx of chronic right hip/groin pain. She has been treated conservatively for hip DJD. However, she has failed all conservative management. She is now being set up for surgical management. Principal Diagnosis right hip osteoarthritis Discharge Exam Constitutional well developed and well nourished; no acute distress ENMT external ear and nose normal, oropharynx normal Neck trachea midline Respiratory normal respiratory effort, lungs clear to auscultation Cardiovascular Rate/Rhythm: regular rate and regular rhythm Gastrointestinal (Abdomen) normal bowel sounds, soft, nontender, no hepatosplenomegaly Musculoskeletal Hip: + surgical incision (Prevena dressing in place and functioning.) and + surgical drain present (Hemovac is drained approximately 60 cc in 24 hours); no skin erythema and no ecchymosis Skin no rashes, warm and dry Trauma: no evidence of skin trauma Neurologic normal touch/pain/proprioception Psychiatric A+Ox3, euthymic affect Speech: normal rate/rhythm/volume of speech Lymphatic no cervical or axillary lymphadenopathy Discharge Data Allergies Allergy/AdvReac Type Severity Reaction Status Date / Time No Known Allergies Allergy Verified 08/12/21 05:41 Consultations 08/12/21 13:25 Consult Internal Medicine Routine Procedures Performed Operation Date: 08/12/21 07:15 Actual Procedures p Right Total Hip Arthroplasty(Right) - Reinier Black DO Hospital Course (1) Osteoarthritis of right hip: Postop day #1 post right total hip arthroplasty PT/OT--weight-bear as tolerated right lower extremity DVT prophylaxisTED stockings and aspirin 81 mg twice daily x30 days. Pain controloral oxycodone and Tylenol Hemovac will be removed today Discharge planningplan for home with home health. If PT goes well today, she may be discharged later today. Total Time Total Time Spent Total Time Spent (In Minutes): 20 Discharge Plan Discharge Items Patient Disposition: Home - Home Health Services Reason For Visit: Right Osteoarthritis Hip Discharge Diagnosis: Right hip osteoarthritis Activity: Per Instructions section Weightbearing: Full weightbearing Non-emergency contact: Surgeon Call non-emergency contact if: your pain is not controlled, your pain is worsening and your temperature is above 101 Follow-up/Referrals: Mee Ortiz PA-C [Primary Care Provider] - Diet: Regular Addtl Attending Provider Instructions: ACTIVITY RECOMMENDATIONS: SELF CARE INSTRUCTIONS AFTER TOTAL HIP REPLACEMENT Until the incision and soft tissues around your hip have healed, there is a possibility that the hip prosthesis could dislocate. A. Observe the following precautions to prevent dislocation: 1. Don't bend your hip greater than 90 degrees. 2. Avoid crossing your legs or ankles while standing or lying. 3. Sit with your feet placed 6 inches apart. 4. When sitting, keep your knees below your hips. Sit on a firm surface, avoid deep, soft chairs and couches. Use an elevated toilet seat in the bathroom. 5. Don't bend over at the waist. Use a long handled shoehorn and a sock aid to help you put on your shoes and socks. A wind projects supervisor can help you grain picker objects that are too high or too low to reach. 6. Keep car riding to a minimum for at least one month after surgery. B. Your balance may be shaky for a while. Use crutches or a walker until directed by your doctor. C. Use hand rails when walking on stairs. D. Wear low heeled shoes with non-slip soles. E. Be sure that your floors are free of things that could trip you - throw rugs, electrical cords, small objects. Avoid wet and waxed floors, especially with crutches and canes. F. Try to walk several times a day with rest periods between. G. Continue with all the exercises taught to you in the hospital. Again, make walking a part of your daily routine. H. It is okay to shower if minimal to no drainage from incision. No baths. Do not soak wound. I. Physical Therapy as instructed by your Physician. J. Prevena dressing: You have a Prevena dressing on your surgical wound. It will remain in place for 7 days from surgery. You will be provided with a booklet with the do's and don'ts with the dressing in place. After 7 days, the dressing may be removed. If there is drainage from the surgical incision, you may cover the wound with dry dressings SPECIAL CARE INSTRUCTIONS: VERY IMPORTANT TO READ AND REVIEW A. You may still be at risk for phlebitis and blood clots. 1. Wear surgical stockings (LIVIER hose) for one month, 20 hours daily, after surgery to improve circulation and reduce swelling. 2. Take Aspirin (blood thinning medications), as directed by your doctor. 3. Have a pro-time (blood test) drawn according to your doctor's instructions. B. We encourage and will assist you in choosing a home-health agency of your choice. Home health nurses and therapists will monitor your temperature, wound healing and progress in exercise and walking. Home health nurses may also draw the blood for the pro-time test. They may instruct you in decreasing or increasing the amount of Coumadin you take. C. You must take antibiotics before having dental work, bladder, bowel and other surgery. Your doctor will provide you with a permanent card to carry describing precautions. D. Call [facility] if you have a temperature of 101 or greater, redness or swelling around the incision, cloudy drainage from incision, or sudden increase in pain in your hip, not relieved by your regular pain medication. E. Please call the office at if you have any concerns or questions about your operation or recovery. FOLLOW UP VISIT: If appointment is not already scheduled: Please call [facility] to make a follow-up appointment for 2 weeks after your surgery at . Pending Studies at Discharge: No Stand-Alone Forms: My [facility] Credii, Smoking Cessation Medications and DC Order Prescriptions: New acetaminophen [Tylenol Extra Strength] 500 mg Tablet 1,000 mg PO Q8 Qty: 100 RF: 0 aspirin 81 mg Tablet,Delayed Release (Dr/Ec) 81 mg PO BID Qty: 60 RF: 0 celecoxib [Celebrex] 200 mg Capsule 200 mg PO BID Qty: 60 RF: 0 oxycodone 5 mg Tablet 5 mg PO Q4H PRN (Reason: pain) Qty: 20 RF: 0 Continued multivitamin Tablet 1 tab PO QAM RF: 0 atorvastatin 40 mg Tablet 40 mg PO HS RF: 0 metformin 500 mg Tablet 2,000 mg PO HS RF: 0 cyanocobalamin (vitamin B-12) 1,000 mcg Tablet 1,000 mcg PO QAM RF: 0 citalopram 20 mg Tablet 20 mg PO HS RF: 0 gabapentin 100 mg Capsule 100 - 200 mg PO BID RF: 0 omega-3 fatty acids Capsule 1,000 mg PO BID RF: 0 calcium carbonate-vitamin D3 [Calcium 600 + D(3)] 600 mg-10 mcg (400 unit) Tablet 1 tab PO BID RF: 0 Jardiance 25 mg Tablet 25 mg PO QAM RF: 0 Claritin 10 mg Tablet,Chewable 10 mg PO HS RF: 0 albuterol sulfate 90 mcg/actuation Hfa Aerosol Inhaler 2 puff INHALATION 6XD PRN (Reason: Wheezing) RF: 0 Discontinued ibuprofen 200 mg Tablet 800 mg PO BID RF: 0 Discharge Orders: Discharge Order (Routine); Ordered 08/13/21 Ordered By: Gage Anne/Other Patient Handouts: Hip Precautions, Total Hip Replacement, Hip Replace Home Recovery Admission Data Admit Date/Time: 08/12/21 11:32 Attending Provider: Reinier Black Admit Provider: Reinier Black Primary Care Provider: Mee Ortiz Other Providers: Tara Hampton ; Shankar Xie ; Tona Broderick ; Monse Moses ; Taniya Eller ; Beverly Loza ; Tip Trent ; Sha Jose ; Rosie Gillis ; Caridad Arias ; Goldy Baumann ; Geneva Begum ; Anny Bravo ; Molina Darnell ; Iram Silva ; Reyna Cruz ; Sepideh Saini ; Rita Ulloa I. ; Pino Bermudez ; Eileen Barron ; Juan Toledo ; John Costa ; [facility] ; Ashley Russell Other Interventions: Discharge Summary Assessment (RN) Last Done: 08/13/21 15:47
== END 2021-08-13 16:50 | disposition home health service (06) ==
LOC: 3W 05:12 → ASU 05:12

== ENCOUNTER 2021-09-29 20:12 | Inpatient (IN) ==
[2021-09-29] MEDS ORDERED: METOCLOPRAMIDE HCL INJ 5 MG/ML 2 ML VIAL IV PRN (21:49)
[2021-09-29] MEDS ORDERED: ALUMINUM/MAGNESIUM SUSP 30 ML UDC PO PRN (21:49)
[2021-09-29] MEDS ORDERED: diphenhydrAMINE Capsule 25 MG CAP PO PRN (21:49)
[2021-09-29] MEDS ORDERED: ONDANSETRON INJ 2 MG/ML 2 ML VIAL IV PRN (21:49)
[2021-09-29] MEDS ORDERED: ZOLPIDEM TARTRATE 5 MG TAB PO PRN (21:49)
[2021-09-29] MEDS ORDERED: oxyCODONE HCL IR 5 MG TAB (IMMEDIATE RELEASE) PO PRN (21:54)
[2021-09-29] MEDS ORDERED: VANCOMYCIN CONSULT ACTIVE PRN (21:54)
[2021-09-29] MEDS ORDERED: ALBUTEROL HFA 8 GM INHALER INH PRN (21:57)
[2021-09-29] MEDS ORDERED: PHARMACY GLYCEMIC MGMT CONSULT PRN (22:00)
[2021-09-29] MEDS ORDERED: VANCOMYCIN HCL 1,750 MG in SODIUM CHLORIDE 0.9% 500 ML IV ONE (23:00)
[2021-09-29] MEDS: INSULIN ASPART PER UNIT SC SCH (23:26)
[2021-09-29] MEDS: ACETAMINOPHEN 500 MG TAB PO SCH (23:26)
[2021-09-29] MEDS ORDERED: Nursing to Pharmacy Communication SCH (23:30)
[2021-09-29 23:35] LABS: Creatinine Clr Calc Pharmacy 76.5 ml/min; Est GFR (African American) 89.1 ml/min; Est GFR (Non-African American) 76.9 ml/min
[2021-09-30] MEDS ORDERED: GLUCOSE 40% GEL 15 GM TUBE PO PRN (00:30)
[2021-09-30] MEDS ORDERED: GLUCAGON FOR INJ 1 MG VIAL IM PRN (00:30)
[2021-09-30] MEDS ORDERED: CARBOHYDRATES FOR HYPOGLYCEMIA PO PRN (00:30)
[2021-09-30] MEDS ORDERED: DEXTROSE 50% 50 ML SYRINGE IV PRN (00:30)
[2021-09-30] MEDS ORDERED: GLUCOSE 10 TABS/TUBE PO PRN (00:30)
[2021-09-30] MEDS: VANCOMYCIN HCL 1,000 MG in SODIUM CHLORIDE 0.9% 250 ML IV SCH ×2 (05:52→22:30)
[2021-09-30] MEDS: ACETAMINOPHEN 500 MG TAB PO SCH ×3 (05:55→22:31)
[2021-09-30 05:58] LABS: Creatinine Clr Calc Pharmacy 82.8 ml/min; Est GFR (African American) 98.1 ml/min; Est GFR (Non-African American) 84.6 ml/min
--- NOTE | 2021-09-30 06:11 | Consultation Report ---
DATE OF CONSULTATION: 09/29/2021. CHIEF COMPLAINT: Infected right total hip arthroplasty. HISTORY OF PRESENT ILLNESS: A 70-year-old female with past medical history significant for type 2 diabetes, hyperlipidemia, obesity, notalgia paresthetica, anxiety. The patient had right total hip arthroplasty in July. The patient says she was doing fine after surgery. The week before she went to her son's place in [place], [place], when she had pain in the right hip, she was admitted to the hospital there and aspiration was done and seemed to be infected and she is status post I and D there and treated with vancomycin and Rocephin and got a PICC line and discharged with IV Rocephin to complete 6 weeks of antibiotics, currently she has 5 more weeks. She was discharged last Sunday. She went to see her local orthopedics today.But as since yesterday she is having lot of drainage from the surgical site and Ortho planned for repeat I and D.Denies any pain, no shortness of breath, no cough, no headache, no blurred visions, no earache, no runny nose, no sore throat. Appetite is okay. No difficulty swallowing. No nausea, no abdominal pain. Normal bowel and bladder movements. ALLERGIES: No known drug allergies. PAST MEDICAL HISTORY: As mentioned above. PAST SURGICAL HISTORY: Colonoscopy, ligation of oviducts, left metatarsal fixation, appendectomy, right total hip arthroplasty. MEDICATIONS: As per Epic, she is on tramadol 50 mg p.o. b.i.d. p.r.n. for pain, gabapentin 100 mg p.o. t.i.d., meloxicam, citalopram 20 mg p.o. daily, atorvastatin 40 mg p.o. daily, metformin ER 2000 mg p.o. at bedtime, Jardiance 25 mg p.o. daily, multivitamin p.o. daily, albuterol 2 puffs inhalation q. 6 hours p.r.n., calcium plus vitamin D, omega capsules. FAMILY HISTORY: Significant for mother had diabetes, heart disorder, hypertension; father has stroke. SOCIAL HISTORY: , no smoking, no alcohol, no drug use. REVIEW OF SYSTEMS: As per HPI. Rest of the review of systems is negative. PHYSICAL EXAMINATION: GENERAL: The patient is obese, not in acute distress. VITAL SIGNS: Temperature 36.7, pulse 102, respiratory rate 18, blood pressure 140/80, oxygen 92% on room air. HEENT: Extraocular muscles intact. No facial droop. NECK: No JVD. No neck masses. CARDIOVASCULAR: S1 and S2 heard. Regular rate and rhythm. No murmur, no gallop. RESPIRATORY SYSTEM: Normal AP diameter. No accessory muscle use. No wheezing, no crackles. ABDOMEN: Soft, bowel sounds present, nontender, no distention. CENTRAL NERVOUS SYSTEM: Cranial nerves II through XII are grossly intact, nonfocal. EXTREMITIES: Right hip surgical site dressing intact. No drainage seen. No edema, no erythema seen. LABORATORY DATA: Creatinine 0.7. ASSESSMENT AND PLAN: This 70-year-old female who recently in July had a right hip arthroplasty, presents with infected right hip infection of the surgical site. 1. Infected right hip arthroplasty site: Recently drained the week before at [place], [place]. On Rocephin, to complete total 6 weeks, has PICC line. Today again having a lot of drainage. Plan for repeat I and D.Currently on iv vanco. Further management as per orthopedics. 2. Diabetes: Holding her home medication. Placed on insulin sliding scale. Follow the blood sugars. 3. Gastroesophageal reflux disease: On Protonix. 4. Hyperlipidemia: On statin. 5. Depression and anxiety: On Celexa. 6. Deep venous thrombosis prophylaxis as per Ortho. DISPOSITION: As per orthopedics. Job ID: [id number] MTDD
[2021-09-30] MEDS: INSULIN ASPART PER UNIT SC SCH ×4 (06:22→22:49)
[2021-09-30 08:11] LABS: Estimated Average Glucose 157 mg/dl; Hemoglobin A1C 7.1 % (4.5-5.6)
[2021-09-30] MEDS: CYANOCOBALAMIN (B-12) 500 MCG TABLET PO SCH (09:12)
[2021-09-30] MEDS: MULTIVITAMIN TAB PO SCH (09:12)
[2021-09-30] MEDS: OMEGA-3 (PURIFIED FISH OIL) 1 GM CAP PO SCH ×2 (09:12→23:07)
[2021-09-30] MEDS: CALCIUM 600MG + VIT D 400 IU TAB PO SCH ×2 (09:12→22:31)
[2021-09-30] MEDS: GABAPENTIN 100 MG CAP PO SCH ×2 (09:12→22:32)
[2021-09-30] MEDS: PANTOprazole 40 MG TAB PO SCH (09:12)
--- NOTE | 2021-09-30 09:53 | Pharmacy Report ---
Pharmacy Vanc AUC Short Note - Date of Service September 30, 2021 - Assessment & Plan Assessment 70 year old F receiving Vancomycin for treatment of R hip infection, possible osteomyelitis. She was recently on Vancomycin and Rocephin at a hospital in [place] for drainage from R hip post arthroplasty. She was discharged on 6 weeks of Rocephin. She completed 1 week of Rocephin, but infection seems to have worsened. Plan to further I&D. Currently no cultures obtained. Loading dose of Vanco 1750 mg (19.7 mg/kg) IV x 1 given last night. Maintenance dose Vanco 1 gm (11.3 mg/kg) IV q12h started today at 6 AM. Day #2 of antimicrobial therapy. Plan Vancomycin * AUC/SHELLEY is the preferred PK/PD target for vancomycin * AUC guided dosing is effective and associated with decreased risk of nephrotoxicity compared to traditional trough targets * Expecting Vanco trough level of 16.3 mcg/ml with current dosing of 1 gm IV q12h. * This trough level is predicted to achieve target AUC/SHELLEY of 400-600 mg/L.hr and may be associated with a 12% risk of nephrotoxicity * Trough Vanco level ordered for: 10/01/21 @ 0530 Pharmacy will continue to follow and will adjust dose/frequency as necessary. Thank you.
--- NOTE | 2021-09-30 11:27 | Pharmacy Report ---
Pharmacy Glycemic Short Note 2 - Date of Service September 30, 2021 - Glycemic Short BSG Results (Last 24 hours): 09/29/21 09/30/21 23:15 06:06 POC Glucose 201 H 126 H OUTPATIENT ANTIDIABETIC REGIMEN: * Metformin ER 1000 mg PO BID * Jardiance 25 mg PO daily ASSESSMENT: * 70 y/o F admitted for hip infection and antibiotic therapy. Patient with history of Type 2 diabetes managed at home on oral Metformin and Jardiance. HbA1c= 09/30/21. * Last night BSG was 201 mg/dl. Novolog was started at that time based on wt and stress between 1 and 2. * Patient is NPO for I&D of R hip infection. * Fasting BSG today was 126 mg/dl. Pre-lunch BSG = 132 mg/dl. * So far, patient has not needed any insulin today. Continued Novolog parameters the same. PLAN FOR INPATIENT GLYCEMIC CONTROL: * Hold outpatient oral diabetes medications * Basal insulin * none * Bolus insulin * NovoLog per scale ACHS or Q6hrs while NPO * Goal Range: Low 110 mg/dL - High 140 mg/dL * Correction Factor: 30 mg/dL/unit * Nutritional / Prandial insulin per carb ratio of 1 unit per 10 grams CHO consumed
--- NOTE | 2021-09-30 12:54 | Hospitalist Progress Note ---
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 1. Infected right hip arthroplasty site: Recently drained the week before, at [place], [place]. On Rocephin, to complete total 6 weeks, has PICC line. On admission, again having a lot of drainage. Started on IV vanco by orthopedics Now s/p Right hip incision and drainage with extensive irrigation and debridement and Acetabular liner and femoral head exchange. Cultx taken in OR Discussed w/ ortho, added zosyn to vanco for now Likely will discuss further w/ ID after cultx available Further management as per orthopedics. 2. Diabetes: Holding her home medication. Placed on insulin sliding scale. Follow the blood sugars. 3. Gastroesophageal reflux disease: On Protonix. 4. Hyperlipidemia: On statin. 5. Depression and anxiety: On Celexa. DVT prophylaxis as per Ortho. DISPOSITION: As per orthopedics. Admission and Anticipated Discharge Date Admission Date: September 29, 2021 Subjective Patient seen in follow-up of infected prosthetic hip joint Patient seen in the PACU, after irrigation and debridement of the hip Patient was laying in bed, in no acute distress, alert drowsy but able to answer questions appropriately PRBCs ordered Patient denies fevers, chills, chest pain, shortness of breath, abdominal pain, nausea vomiting Discussed with orthopedics, and it is all sent to vancomycin, cultures taken in OR, likely to further discuss with ID Review of Systems Review of Systems: All systems reviewed & are unremarkable except as noted in Subjective Physical Exam Physical Exam: GENERAL: WD/WN F, not in acute distress. HEENT: NC/AT. Extraocular muscles intact. No facial droop. NECK: No JVD. No neck masses. CARDIOVASCULAR: S1 and S2 heard. Regular rate and rhythm. No murmur, no gallop. RESPIRATORY SYSTEM: Normal AP diameter. No accessory muscle use. No wheezing, no crackles. ABDOMEN: Soft, bowel sounds present, nontender, no distention. NEURO:Awake and alert, able to answer questions appropriately, no facial asymmetry, speech fluent, moves extremities EXTREMITIES: Right hip surgical site dressing intact (pt seen in PACU) Results & Data Results & Data ([facility]) Vital Signs (Past 12 Hours) Vital Signs Temp Pulse Pulse Resp BP Pulse Ox 09/30/21 08:00 36.6 C 79 16 115/70 94 09/30/21 07:31 36.7 C 76 16 140/82 93 Laboratory Results 09/30/21 09/30/21 09/30/21 Range/Units 12:05 11:50 06:06 Creatinine (0.6-1.2) mg/dl Est Cr Clr Drug Dosing ml/min Est GFR ( Amer) ml/min Est GFR (Non-Af Amer) ml/min POC Glucose 132 H 126 H (70-99) mg/dl Estimat Average Glucose mg/dl Hemoglobin A1c (4.5-5.6) % SARS-CoV-2, RNA, NAAT NEGATIVE (NEGATIVE) 09/30/21 09/30/21 09/29/21 Range/Units 05:26 05:26 23:15 Creatinine 0.73 (0.6-1.2) mg/dl Est Cr Clr Drug Dosing 82.8 ml/min Est GFR ( Amer) 98.1 ml/min Est GFR (Non-Af Amer) 84.6 ml/min POC Glucose 201 H (70-99) mg/dl Estimat Average Glucose 157 mg/dl Hemoglobin A1c 7.1 H (4.5-5.6) % SARS-CoV-2, RNA, NAAT (NEGATIVE) 09/29/21 Range/Units 22:56 Creatinine 0.79 (0.6-1.2) mg/dl Est Cr Clr Drug Dosing 76.5 ml/min Est GFR ( Amer) 89.1 ml/min Est GFR (Non-Af Amer) 76.9 ml/min POC Glucose (70-99) mg/dl Estimat Average Glucose mg/dl Hemoglobin A1c (4.5-5.6) % SARS-CoV-2, RNA, NAAT (NEGATIVE) Medications Administered Current Inpatient Medications Acetaminophen (Acetaminophen 500 Mg Tab) 1,000 mg PO Q8H [facility] Stop: 10/29/21 21:59 Last Admin: 09/30/21 05:55 Dose: 1,000 mg Documented by: Al Hydrox/Mg Hydrox/Simethicone (Aluminum/Magnesium Susp 30 Ml Udc) 30 ml PO Q6H PRN PRN Reason: Dyspepsia Stop: 10/29/21 21:48 Albuterol (Albuterol Hfa 8 Gm Inhaler) 2 puffs INH Q4H PRN PRN Reason: Wheezing Stop: 10/29/21 21:56 Atorvastatin Calcium (Atorvastatin 40 Mg Tab) 40 mg PO HS NINA Stop: 10/30/21 20:59 Citalopram Hydrobromide (Citalopram 20 Mg Tab) 20 mg PO HS NINA Stop: 10/30/21 20:59 Cyanocobalamin (Cyanocobalamin (B-12) 500 Mcg Tablet) 1,000 mcg PO QAM NINA Stop: 10/30/21 08:59 Last Admin: 09/30/21 09:12 Dose: 1,000 mcg Documented by: Dextrose (Dextrose 50% 50 Ml Syringe) 25 - 50 ml IV UD PRN; Protocol PRN Reason: Hypoglycemia Protocol Stop: 10/30/21 00:29 Diphenhydramine HCl (Diphenhydramine Capsule 25 Mg Cap) 25 mg PO Q8H PRN PRN Reason: Itching Stop: 10/29/21 21:48 Last Admin: 09/30/21 02:00 Dose: 25 mg Documented by: Fish Oil ([place]-3 (Purified Fish Oil) 1 Gm Cap) 1 gm PO BID NINA Stop: 10/30/21 08:59 Last Admin: 09/30/21 09:12 Dose: 1 gm Documented by: Gabapentin (Gabapentin 100 Mg Cap) 200 mg PO BID NINA Stop: 10/30/21 08:59 Last Admin: 09/30/21 09:12 Dose: 200 mg Documented by: Glucagon (Glucagon For Inj 1 Mg Vial) 1 mg IM UD PRN; Protocol PRN Reason: Hypoglycemia Protocol Stop: 10/30/21 00:29 Glucose (Glucose 40% Gel 15 Gm Tube) 15 - 30 gm PO UD PRN; Protocol PRN Reason: Hypoglycemia Protocol Stop: 10/30/21 00:29 Glucose (Glucose 10 Tabs/Tube) 4 - 8 tabs PO UD PRN; Protocol PRN Reason: Hypoglycemia Protocol Stop: 10/30/21 00:29 Heparin Sodium (Beef Lung) (Heparin 10 Unit/Ml 5 Ml Flush) 5 ml FLUSH PRN PRN PRN Reason: Flush Stop: 10/29/21 22:53 Last Admin: 09/30/21 07:53 Dose: 5 ml Documented by: Vancomycin HCl 1,000 mg/ (Sodium Chloride) 270 mls @ 200 mls/hr IV Q12H [facility] Stop: 11/11/21 05:59 Last Infusion: 09/30/21 07:51 Dose: Infused Documented by: Insulin Aspart (Insulin Aspart Per Unit) 0 units SC Q6 [facility] Stop: 10/29/21 22:59 Last Admin: 09/30/21 12:29 Dose: Not Given Documented by: Loratadine (Loratadine 10 Mg Tab) 10 mg PO HS [facility] Stop: 10/30/21 20:59 Metoclopramide HCl (Metoclopramide Hcl Inj 5 Mg/Ml 2 Ml Vial) 10 mg IV Q6H PRN PRN Reason: Nausea/Vomiting Stop: 10/29/21 21:48 Miscellaneous (Carbohydrates For Hypoglycemia ) 15 - 30 gm PO UD PRN PRN Reason: Hypoglycemia Treatment Stop: 10/30/21 00:29 Miscellaneous Information (Vancomycin Consult Active) 1 ea N/A UD PRN PRN Reason: Consult Stop: 10/29/21 21:53 Miscellaneous Information (Pharmacy Glycemic Mgmt Consult) 1 ea N/A UD PRN PRN Reason: Consult Stop: 10/29/21 21:59 Multivitamins ([facility]ivitamin Tab) [facility] Stop: 10/30/21 08:59 Last Admin: 09/30/21 09:12 Dose: 1 tab Documented by: Multivitamins/Minerals (Calcium 600mg + Vit D 400 Iu Tab) 1 tab PO BID [facility] Stop: 10/30/21 08:59 Last Admin: 09/30/21 09:12 Dose: 1 tab Documented by: Ondansetron HCl (Ondansetron Inj 2 Mg/Ml 2 Ml Vial) 4 mg IV Q6H PRN PRN Reason: Nausea/Vomiting Stop: 10/29/21 21:48 Oxycodone HCl (Oxycodone Hcl Ir 5 Mg Tab (Immediate Release)) 5 mg PO Q4H PRN PRN Reason: Pain Stop: 10/13/21 21:53 Pantoprazole Sodium (Pantoprazole 40 Mg Tab) 40 mg PO QAM [facility] Stop: 10/30/21 08:59 Last Admin: 09/30/21 09:12 Dose: 40 mg Documented by: Zolpidem Tartrate (Zolpidem Tartrate 5 Mg Tab) 5 mg PO HS PRN PRN Reason: Sleep Stop: 10/29/21 21:48
--- NOTE | 2021-09-30 14:16 | History & Physical Report ---
Date of Service September 30, 2021 Assessment & Plan (1) Infection of prosthetic total hip joint: Plan: Plan is for open irrigation and debridement of the right MONICA with femoral head and acetabular liner changes. Dr. Black will be performing this today. Patient has been started on IV vancomycin. Plans will be for intraoperative cultures and possible tissue samples for culture. Likely infectious disease consult for early next week. Admission and Anticipated Discharge Date Admission Date: September 29, 2021 History of Present Illness Chief Complaint: Infection right hip Primary Care Provider: Mee Ortiz PA-C Patient is a 70-year-old female known to our practice who is status post right total hip arthroplasty by Dr. Kurtis Black in July 2021. Patient states that she was doing well after surgery and had her incision healed up quite well. She had not been having any problems and was actually getting ready to go back to work after several weeks. At that time she decided to go visit her son in [place]. This was approximately 2 weeks ago. While the patient was visiting her son, she began having increased pain in the right hip. At one point she began not feeling well and had mental status changes. She was taken to [facility] in [facility]. They ended up aspirating 90 cc of fluid from her hip. 2 cultures were sent at that time She states that wound culture was sent out of the hospital and one was done in the hospital. One came back Streptococcus species and the other came back staphylococcal species. She was then taken to the OR and what sounds like an arthroscopic washout was done of her right hip. Once that was done, she states she was feeling better. They started the patient on Rocephin daily and arranged for a PICC line and for IV home care. She was thusly discharged home back here in [place]. Since that time she is continue to have some drainage from her wounds from the surgery. She has been continued on her IV Rocephin and she was able to see Dr. Black in the office yesterday. After his examination, he felt the patient was in need of hospital admission with plans for open irrigation debridement with head and liner change. The patient has thusly been admitted for further orthopedic care. Allergies Allergy/AdvReac Type Severity Reaction Status Date / Time No Known Allergies Allergy Verified 08/12/21 05:41 Home Medications Medication Instructions Recorded Confirmed Type albuterol sulfate 90 mcg/actuation 2 puff INHALATION 6XD PRN 07/12/21 08/12/21 History aerosol inhaler atorvastatin 40 mg tablet 40 mg PO HS 07/12/21 08/12/21 History calcium carbonate 600 mg-vitamin 1 tab PO BID 07/12/21 08/12/21 History D3 10 mcg (400 unit) tablet (Calcium 600 + D(3)) citalopram 20 mg tablet 20 mg PO HS 07/12/21 08/12/21 History cyanocobalamin (vitamin B-12) 1,000 mcg PO QAM 07/12/21 08/12/21 History 1,000 mcg tablet empagliflozin 25 mg tablet 25 mg PO QAM 07/12/21 08/12/21 History (Jardiance) gabapentin 100 mg capsule 100 - 200 mg PO BID 07/12/21 08/12/21 History loratadine 10 mg chewable tablet 10 mg PO HS 07/12/21 08/12/21 History (Claritin) metformin 500 mg tablet 2,000 mg PO HS 07/12/21 08/12/21 History multivitamin 1 tab PO QAM 07/12/21 08/12/21 History omega-3 fatty acids 1,000 mg PO BID 07/12/21 08/12/21 History acetaminophen 500 mg tablet 1,000 mg PO Q8 #100 tab 08/13/21 Rx (Tylenol Extra Strength) aspirin 81 mg tablet,delayed 81 mg PO BID #60 tab 08/13/21 Rx release celecoxib 200 mg capsule (Celebrex) 200 mg PO BID #60 cap 08/13/21 Rx oxycodone 5 mg tablet 5 mg PO Q4H PRN #20 tab 08/13/21 Rx Past Med/Surg History Medical History Anemia Arthritis Asthma LAST INHALER USE MONTHS AGO Depression HX -UNDER CONTROL Diabetes mellitus, type 2 Hyperlipidemia Obesity SOB (shortness of breath) on exertion with 1 FOS, denies needing to stop and catch breath, ongoing x several yrs, pt feels is due to deconditioning, denies change or worsening Surgical History History of appendectomy History of bilateral tubal ligation History of colonoscopy History of open reduction and internal fixation (ORIF) procedure LEFT SMALL TOE Family History Mother Family history of diabetes mellitus Father Family history of diabetes mellitus Social History Smoking Status: Never smoker Second Hand Exposure: No; Hx Alcohol Use: No Hx Substance Use: No Preferred Language: Greek Communication Ability: Effective [employer] Supervisor Required: No Beliefs That Will Affect Care: None marital status: Current Living Situation: Spouse current occupational status: employed current occupation: [employer] How many Children do You have: 2 Other Information That Helps Us Care for You: No Feels Safe at Home: Yes Safety Concerns: Feels Safe At This Time Assistive Devices: Cane and Walker Review of Systems Review of Systems: All systems reviewed & are unremarkable except as noted in HPI & below Physical Exam Physical Exam: Patient is a 70-year-old white female who appears younger than her stated age. She is alert and oriented x3, no acute distress, pleasant and cooperative. Eyes: PERRL, conjunctivae normal, anicteric sclerae ENMT: external ear and nose normal, oropharynx normal Neck: trachea midline, no thyromegaly Respiratory: normal respiratory effort, lungs clear to auscultation Cardiovascular: RRR, no murmur, no edema Gastrointestinal (Abdomen): normal bowel sounds, soft, nontender, no hepatosplenomegaly Musculoskeletal: On examination of her right lower extremity, she has multiple dressings on her right hip. There are some small wounds that have been sutured secondary to her recent arthroscopic washout of her hip. She also has a dressing over her original hip incision. This is removed revealing a cellulitic area around the shoulder incision as well with some drainage noted. There is no foul odor. The drainage appears slightly purulent. She has good range of motion of her right hip at this time. She has no pain with range of motion or with axial loading. Patient states that she can ambulate weightbearing as tolerated on the hip at this time. She has no increased pain with internal or external rotation, flexion or extension, abduction or adduction. She is nontender at her right knee as well as ankle and has good range of motion of both. Left lower extremity is unaffected and range of motion is within normal limits. Upper extremities are unaffected and she is nontender in the shoulders, elbows and wrists. Range of motion is within normal limits. There is no gross motor or sensory loss seen at this time. Results & Data Results & Data ([facility]) Vital Signs (Past 12 Hours) Vital Signs Temp Pulse Pulse Resp BP Pulse Ox 09/30/21 08:00 36.6 C 79 16 115/70 94 09/30/21 07:31 36.7 C 76 16 140/82 93 Laboratory Results Laboratory Results Creatinine 0.73 mg/dl (0.6-1.2) 09/30/21 05:26 Est Cr Clr Drug Dosing 82.8 ml/min 09/30/21 05:26 Est GFR ( Amer) 98.1 ml/min 09/30/21 05:26 Est GFR (Non-Af Amer) 84.6 ml/min 09/30/21 05:26 POC Glucose 132 mg/dl (70-99) H 09/30/21 12:05 Estimat Average Glucose 157 mg/dl 09/30/21 05:26 Hemoglobin A1c 7.1 % (4.5-5.6) H 09/30/21 05:26 SARS-CoV-2, RNA, NAAT NEGATIVE (NEGATIVE) 09/30/21 11:50 Code Status & VTE Plan VTE Prophylaxis Plan VTE Prophylaxis will be ordered: Yes
[2021-09-30 15:09] LABS: Basophils # (auto) 0.03 K/uL (0-0.2); Basophils % (auto) 0.4 %; Eosinophils # (auto) 0.15 K/uL (0-0.5); Eosinophils % (auto) 2.1 %; Hematocrit (blood only) 35.7 % (37-47); Hemoglobin 11.2 g/dL (12.0-16.0); Immature Granulocytes # (auto) 0.03 K/uL (0.00-0.02); Immature Granulocytes % (auto) 0.4 %; Lymphocytes # (auto) 1.43 K/uL (1.2-3.4); Lymphocytes % (auto) 19.6 %; Mean Corpuscular Hemoglobin 27.4 pg (25-34); Mean Corpuscular Hgb Conc 31.4 g/dL (32-36); Mean Corpuscular Volume 87.3 fL (80-100); Mean Platelet Volume 9.8 fL (7.4-10.4); Monocytes # (auto) 0.49 K/uL (0.11-0.59); Monocytes % (auto) 6.7 %; Neutrophils # (auto) 5.17 K/uL (1.4-6.5); Neutrophils % (auto) 70.8 %; Platelet Count 336 K/uL (130-400); RDW Standard Deviation 47.8 fL (36.4-46.3); Red Blood Count 4.09 M/uL (4.2-5.4)
--- NOTE | 2021-09-30 15:15 | Anesthesiology Consultation ---
Date of Service September 30, 2021 Assessment & Plan (1) Encounter for pre-operative examination: Chart Review Chart Review: Acceptable Risk for Surgery (necessary surgery) and Patient NOT seen in Pre Admission Testing Consults Requested none History Surgery Operation Date: 09/30/21 07:00 Proposed Procedures p Right Hip Incision and Drainage, Acetabular Liner and Femoral Head Change - Reinier Black, Height/Weight Height: 5 ft 6 in Weight: 88.8 kg Allergies Allergy/AdvReac Type Severity Reaction Status Date / Time No Known Allergies Allergy Verified 08/12/21 05:41 Medications Home Medications Medication Instructions Recorded Confirmed Last Taken albuterol sulfate 90 mcg/actuation 2 puff INHALATION 6XD PRN 07/12/21 08/12/21 Unknown aerosol inhaler atorvastatin 40 mg tablet 40 mg PO HS 07/12/21 08/12/21 08/11/21 20:30 calcium carbonate 600 mg-vitamin 1 tab PO BID 07/12/21 08/12/21 08/11/21 20:30 D3 10 mcg (400 unit) tablet (Calcium 600 + D(3)) citalopram 20 mg tablet 20 mg PO HS 07/12/21 08/12/21 08/11/21 20:30 cyanocobalamin (vitamin B-12) 1,000 mcg PO QAM 07/12/21 08/12/21 08/06/21 09:00 1,000 mcg tablet empagliflozin 25 mg tablet 25 mg PO QAM 07/12/21 08/12/21 08/11/21 09:00 (Jardiance) gabapentin 100 mg capsule 100 - 200 mg PO BID 07/12/21 08/12/21 08/11/21 20:30 loratadine 10 mg chewable tablet 10 mg PO HS 07/12/21 08/12/21 08/11/21 20:30 (Claritin) metformin 500 mg tablet 2,000 mg PO HS 07/12/21 08/12/21 08/09/21 21:00 multivitamin 1 tab PO QAM 07/12/21 08/12/21 08/10/21 09:00 omega-3 fatty acids 1,000 mg PO BID 07/12/21 08/12/21 08/05/21 09:00 acetaminophen 500 mg tablet 1,000 mg PO Q8 #100 tab 03/26/22 Unknown (Tylenol Extra Strength) aspirin 81 mg tablet,delayed 81 mg PO BID #60 tab 08/13/21 Unknown release celecoxib 200 mg capsule (Celebrex) 200 mg PO BID #60 cap 08/13/21 Unknown oxycodone 5 mg tablet 5 mg PO Q4H PRN #20 tab 08/13/21 Unknown Active Medications Generic Name Dose Route Start Last Admin Trade Name Freq PRN Reason Stop Dose Admin Acetaminophen 1,000 mg 09/29/21 22:00 09/30/21 14:24 Acetaminophen 500 Mg Tab PO 10/29/21 21:59 Not Given Q8H NINA Cyanocobalamin 1,000 mcg 09/30/21 09:00 09/30/21 09:12 Cyanocobalamin (B-12) 500 Mcg Tablet PO 10/30/21 08:59 1,000 mcg QAM NINA Administration Diphenhydramine HCl 25 mg 09/29/21 21:49 09/30/21 02:00 Diphenhydramine Capsule 25 Mg Cap PO 10/29/21 21:48 25 mg Q8H PRN Administration Itching Fish Oil 1 gm 09/30/21 09:00 09/30/21 09:12 [place]-3 (Purified Fish Oil) 1 Gm Cap PO 10/30/21 08:59 1 gm BID NINA Administration Gabapentin 200 mg 09/30/21 09:00 09/30/21 09:12 Gabapentin 100 Mg Cap PO 10/30/21 08:59 200 mg BID NINA Administration Heparin Sodium (Beef Lung) 5 ml 09/29/21 22:54 09/30/21 07:53 Heparin 10 Unit/Ml 5 Ml Flush FLUSH 10/29/21 22:53 5 ml PRN PRN Administration Flush Vancomycin HCl 1,000 mg/ 270 mls @ 200 mls/hr 09/30/21 06:00 09/30/21 07:51 Sodium Chloride IV 11/11/21 05:59 Infused Q12H NINA Infusion Insulin Aspart 0 units 09/29/21 23:00 09/30/21 12:29 Insulin Aspart Per Unit SC 10/29/21 22:59 Not Given Q6 NINA Multivitamins 1 tab 09/30/21 09:00 09/30/21 09:12 Multivitamin Tab PO 10/30/21 08:59 1 tab QAM NIAN Administration Multivitamins/Minerals 1 tab 09/30/21 09:00 09/30/21 09:12 Calcium 600mg + Vit D 400 Iu Tab PO 10/30/21 08:59 1 tab BID NINA Administration Pantoprazole Sodium 40 mg 09/30/21 09:00 09/30/21 09:12 Pantoprazole 40 Mg Tab PO 10/30/21 08:59 40 mg QAM NINA Administration Past Medical History Medical History Anemia Arthritis Asthma LAST INHALER USE MONTHS AGO Depression HX -UNDER CONTROL Diabetes mellitus, type 2 Hyperlipidemia Obesity SOB (shortness of breath) on exertion with 1 FOS, denies needing to stop and catch breath, ongoing x several yrs, pt feels is due to deconditioning, denies change or worsening Past Family History Family History Mother Family history of diabetes mellitus Father Family history of diabetes mellitus Past Surgical History Surgical History History of appendectomy History of bilateral tubal ligation History of colonoscopy History of open reduction and internal fixation (ORIF) procedure LEFT SMALL TOE Social History Smoking Status: Never smoker Hx Alcohol Use: No Hx Substance Use: No Physical Exam Vital Signs Last Vital Signs Temp 36.9 C 09/30/21 14:54 Pulse 79 09/30/21 14:54 Resp 16 09/30/21 14:54 BP 135/75 09/30/21 14:54 Pulse Ox 93 09/30/21 14:54 Testing Laboratory Results 09/30/21 14:35 Hemoglobin A1c 7.1 % (4.5-5.6) H 09/30/21 05:26 09/30/21 09/30/21 12:05 06:06 POC Glucose 132 H 126 H Electrocardiogram Date: 07/26/21 DICTATED BY:Demar Stokes MD Test Reason : Blood Pressure : / mmHG Vent. Rate : 080 BPM Atrial Rate : 080 BPM P-R Int : 184 ms QRS Dur : 084 ms QT Int : 398 ms P-R-T Axes : 080 077 073 degrees QTc Int : 459 ms Normal sinus rhythm Low voltage QRS Borderline ECG No previous ECGs available Confirmed by Demar Stokes ([id number]) on 07/26/2021 3:39:17 PM Referred By: Reinier Black Confirmed By:Demar Stokes Signed By: Chest X-Ray Date: 07/26/21 XR chest Pre-admission PA/Lat HISTORY: Preop. Joint pain. COMPARISON: None. FINDINGS: There is an abnormal lobular density overlying the AP window measuring 2.6 cm. The heart is normal in size. No pleural effusions. No pneumothorax. The lungs are clear. IMPRESSION: Abnormal lobular density overlying the AP window measuring 2.6 cm. Follow-up dedicated chest CT with contrast is recommended to assess for a mediastinal mass or lymphadenopathy. This report was called/faxed to the referring physician following dictation. ACT 112: Negative or not required by law. Electronically signed by: Connor Bowie M.D. 07/26/2021 1:28 PM Dictated:07/26/21 1326 Transcribed: 07/26/21 1326
[2021-09-30] MEDS ORDERED: ONDANSETRON INJ 2 MG/ML 2 ML VIAL IV PRN (15:17)
[2021-09-30] MEDS ORDERED: LABETALOL HCL IV 5 MG/ML 20ML IV PRN (15:17)
[2021-09-30] MEDS ORDERED: ATROPINE SULFATE 0.1 MG/ML 10ML SYR IV PRN (15:17)
[2021-09-30] MEDS ORDERED: PHENYLEPHRINE 100MCG/ML 5ML SYR IV PRN (15:17)
[2021-09-30] MEDS ORDERED: ePHEDrine sulfate 50 MG/ML AMP IV PRN (15:17)
[2021-09-30] MEDS ORDERED: DEXAMETHASONE SOD INJ 4 MG/ML VIAL ONE (15:31)
[2021-09-30] MEDS ORDERED: ONDANSETRON INJ 2 MG/ML 2 ML VIAL ONE (15:31)
[2021-09-30] MEDS ORDERED: LIDOCAINE 2% 2 ML VIAL/AMP(20MG/ML) INFIL ONE (15:31)
[2021-09-30] MEDS ORDERED: PROPOFOL IV EMULSION 10 MG/ML 20 ML VIAL IV ONE (15:31)
[2021-09-30] MEDS ORDERED: MIDAZOLAM HCL 1 MG/ML 2ML VIAL ONE (15:31)
[2021-09-30] MEDS ORDERED: fentaNYL citrate 100 MCG/2 ML VIAL ONE ×2 (15:31→16:04)
[2021-09-30 15:32] LABS: BUN Creatinine Ratio 15.3 (10-20); C Reactive Protein 4.15 mg/dl (0-0.5); Calcium 9.1 mg/dl (8.5-10.1); Creatinine Clr Calc Pharmacy 102.4 ml/min; Est GFR (African American) 109.2 ml/min; Est GFR (Non-African American) 94.2 ml/min; Potassium 3.9 mmol/L (3.5-5.1)
[2021-09-30] MEDS ORDERED: ROCURONIUM BROMIDE 10 MG/ML 5 ML VIAL IV ONE (15:35)
--- NOTE | 2021-09-30 15:36 | History & Physical Bridge Note ---
Date of Service September 30, 2021 History & Physical Bridge Note I have examined the patient, reviewed the History & Physical and in the interval since the performance of the History & Physical I have noted the following changes of clinical significance: no changes noted
[2021-09-30] MEDS ORDERED: ceFAZolin 330 MG/ML 1 GM VIAL ONE (16:18)
[2021-09-30] MEDS ORDERED: ALBUMIN HUMAN 5% 12.5 GM/250 ML VIAL IV ONE (17:03)
[2021-09-30] MEDS ORDERED: SODIUM CHLORIDE 0.9% 250 ML IV PRN ×2 (17:03→19:01)
[2021-09-30] MEDS ORDERED: HYDROmorphone INJ 2 MG/ML SYR/VIAL ONE (17:59)
[2021-09-30 18:44] LABS: Hematocrit (blood only) 27.2 % (37-47); Hemoglobin 8.3 g/dL (12.0-16.0)
[2021-09-30] MEDS: fentaNYL citrate 100 MCG/2 ML VIAL IV PRN ×4 (19:55→20:14)
--- NOTE | 2021-09-30 20:01 | Post Operative Brief Note ---
Immediate Post Op Note v1 Date of Surgery September 30, 2021 Pre & Post Diagnosis Operation Date: 09/30/21 07:00 Pre-Op Diagnosis: Right infected total hip arthroplasty Post-Op Diagnosis: Right infected total hip arthroplasty I identified the patient and participated in the time-out.: Yes Procedure Operation Date: 09/30/21 07:00 Actual Procedures p Right Hip Incision and Drainage with extensive irrigation and debridement. Acetabular Liner and Femoral Head Change(Right) - Reinier Black DO Surgeon Reinier Black DO Filler Wiper Louie Curiel PA-C Estimated Blood Loss 1,000 Findings Consistent with Post-Op Diagnosis Fluids Albumin 1 unit, crystalloids, 1 unit packed cells Specimens Aerobic, anaerobic, Gram stain superficial wound drainage suprafascial Aerobic, anaerobic, Gram stain deep acetabular component Drains Hemovac Drain (x2 deep; x2 superficial; aundrea drain) Anesthesia Type General Complications none Disposition Accompanied Patient To Recovery: Yes
[2021-09-30] MEDS ORDERED: PIPERACILL/TAZOBAC CONSULT ACTIVE PRN ×2 (20:06→20:15)
[2021-09-30] MEDS: HYDROmorphone INJ 1 MG/ML SYRINGE IV PRN ×7 (20:15→20:55)
[2021-09-30] MEDS ORDERED: PIPERACILLIN/TAZOBACTAM 3.375 GM in DEXTROSE 5% 100 ML IV ONE (20:30)
[2021-09-30] MEDS ORDERED: METOPROLOL TARTRATE 1 MG/ML VIAL IV ONE (20:46)
[2021-09-30] MEDS ORDERED: METOPROLOL TARTRATE 1 MG/ML VIAL IV STA (20:55)
[2021-09-30] MEDS ORDERED: HYDROmorphone INJ 0.5 MG/0.5 ML SYR IV STA (20:56)
--- NOTE | 2021-09-30 21:02 | XRay Report ---
AP PELVIS, CROSSTABLE LATERAL RIGHT HIP History: Right total hip arthroplasty. Postop. FINDINGS: The patient is status post a right total hip arthroplasty. The hardware is intact. No fract ure or dislocation. Skin reza and surgical drains are in place. IMPRESSION: Right total hip arthroplasty. No evidence for hardware complication ACT 112: Negative or not required by law. Electronically signed by: Connor Bowie M.D. 09/30/2021 9:01 PM
--- NOTE | 2021-09-30 21:11 | Anesthesiology Progress Note ---
Date of Service September 30, 2021 Anesthesia Post Procedure Vital Signs Vital Signs: Temp Pulse Pulse Pulse Resp BP BP 09/30/21 20:55 36.7 C 88 12 109/68 09/30/21 20:53 112 H 120/81 09/30/21 20:45 112 H 19 137/93 09/30/21 20:35 117 H 20 136/73 09/30/21 20:25 115 H 19 141/80 H 09/30/21 20:15 110 H 12 158/94 H 09/30/21 20:05 98 H 17 147/58 H 09/30/21 19:55 94 H 21 156/81 H 09/30/21 19:47 36.2 C L 91 H 19 144/97 H 09/30/21 15:34 37 C 90 17 130/78 09/30/21 14:54 36.9 C 79 16 135/75 09/30/21 08:00 36.6 C 79 16 115/70 09/30/21 07:31 36.7 C 76 16 140/82 09/29/21 23:09 36.7 C 102 H 18 140/80 Pulse Ox 09/30/21 20:55 100 09/30/21 20:53 09/30/21 20:45 100 09/30/21 20:35 98 09/30/21 20:25 98 09/30/21 20:15 98 09/30/21 20:05 100 09/30/21 19:55 100 09/30/21 19:47 100 09/30/21 15:34 96 09/30/21 14:54 93 09/30/21 08:00 94 09/30/21 07:31 93 09/29/21 23:09 92 Pain Intensity Right Hip: Pain Intensity: 9 Transfer of Care Handoff Completed per policy Notes Mental Status: alert / awake / arousable Patient Amnestic to Procedure: Yes Nausea / Vomiting: adequately controlled Pain: adequately controlled Airway Patency, RR, SpO2: stable & adequate BP & HR: stable & adequate Hydration State: stable & adequate Anesthetic Complications: no major complications apparent
[2021-09-30] MEDS ORDERED: bisacodyL 10 MG SUPP PR PRN (21:42)
[2021-09-30] MEDS ORDERED: MAGNESIUM HYDROXIDE SUSP 30 ML UDC PO PRN (21:42)
[2021-09-30] MEDS ORDERED: SODIUM CHLORIDE 0.9% 1000ML 1,000 ML IV SCH (21:42)
[2021-09-30] MEDS ORDERED: NALOXONE HCL 0.4 MG/1 ML VIAL/CARP IV PRN (21:42)
[2021-09-30 22:20] LABS: Hematocrit (blood only) 30.4 % (37-47); Hemoglobin 9.5 g/dL (12.0-16.0)
[2021-09-30] MEDS: CITALOPRAM 20 MG TAB PO SCH (22:30)
[2021-09-30] MEDS: ATORVASTATIN 40 MG TAB PO SCH (22:31)
[2021-09-30] MEDS: LORATADINE 10 MG TAB PO SCH (22:31)
[2021-09-30] MEDS: SENNA 8.6 MG TAB PO SCH (22:38)
[2021-09-30] MEDS: DOCUSATE SODIUM 100 MG CAP PO SCH (22:38)
[2021-09-30] MEDS: ASPIRIN 81 MG ECTAB PO SCH (22:39)
--- NOTE | 2021-09-30 23:05 | Operative Report (OR) ---
DATE OF PROCEDURE: 09/30/2021. PREOPERATIVE DIAGNOSIS: Right infected total hip arthroplasty. POSTOPERATIVE DIAGNOSIS: Right infected total hip arthroplasty. PROCEDURE: 1. Right hip incision and drainage with extensive irrigation and debridement. 2. Acetabular liner and femoral head exchange. SURGEON: Reinier Black DO SUPERVISOR METAL FABRICATING: Louie Curiel PA-C who was present for patient positioning, sterile prep and drape, management of retractors and instruments. He was present through the critical portions of the case including wound closure, application of sterile dressing and transport of the patient to recovery. ANESTHESIA: General. SPECIMENS: 1. Aerobic, anaerobic, Gram stain, superficial wound drainage, suprafascial. 2. Aerobic, anaerobic, Gram stain, deep acetabular component. DRAINS: Hemovac x2 deep, Hemovac x2 superficial, and a ALEXEY drain. COMPLICATIONS: None. BLOOD LOSS: 1000 mL. PERTINENT HISTORY: This is a 70-year-old female who had previously undergone a successful total hip arthroplasty in July, she was seen in her normal perioperative visits, was doing well. She had her reza removed and then had subsequent followup visit. She then went to visit her son in [place] and felt malaise and disorientation. No other symptoms except some hip discomfort on the right. Condition worsened. She was then seen in the Emergency Department at [facility] in [place], [place], where she was evaluated. She had 90 mL of fluid aspirated from the lateral hip. It was run for cultures, noted to have initially Streptococcus and then subsequent cultures grew Staphylococcus. The patient was admitted to the hospitalist service. She was placed on IV antibiotics. Orthopedics was consulted. The initial orthopedic surgeon recommended irrigation and debridement with possible head and liner exchange. Apparently, a secondary orthopedic surgeon, Dr. Armenta, became involved and opted to do an arthroscopic washout of the suprafascial compartment and the patient was then discharged home with a PICC line, Rocephin and vancomycin. She was then followed up here in [place], [place] office yesterday on 09/29/2021 where she was evaluated and noted to have draining right hip with purulent brown yellowish discharge in abundant amount. The patient was then instructed to report to the hospital where she was admitted, placed on IV antibiotics and then scheduled for right hip incision and drainage with acetabular liner and femoral head exchange of the right hip as indicated All potential risks, benefits, complications, alternatives, rehab potential for incomplete relief of symptoms, need for further surgery, DVT, PE, , persistent pain, swelling, scarring, weakness, neurovascular injury, wound complications, hardware failure, nonunion, malunion, bone fracture were discussed with the patient. The patient decided to proceed with the procedure as indicated. DESCRIPTION OF PROCEDURE: The patient was taken to the operative suite and placed supine on the operating table. After review of the consent and identification of proper site, the patient was anesthetized, endotracheal tube was placed and was placed in the left lateral decubitus position with the right side facing up. All bony prominences were properly padded and protected. Axillary roll was employed and the Stulberg positioner was used to stabilize the patient and then the right hip was then sterilely prepped and draped in usual fashion and the surgical timeout was performed. Then, a 10 blade scalpel was used to excise the previous scar tissue and the draining sinus of the right hip lateral aspect. Subcutaneous fat and dermis was also excised down to the level of the iliotibial band. Next, meticulous careful dissection was performed with sharp and blunt means including use of Draper scissor and heavy forceps to delineate the residual iliotibial band, which had been extensively scarred and partially dehisced. The previously placed reza were removed at the arthroscopic portal sites. The fibrinous transudate was encountered and this was debrided. Residue from antibiotic beads was excised using curette and rongeur. After the iliotibial band was then defined using careful dissection, Aquamantys was used to achieve hemostasis as well as electrocautery. Next, moistened towels were placed over the skin and a large Charnley was applied to the tissues and retracted passively. Next, the trochanteric enhanced abductor repair was noted to be stable and intact, sutures were intact; however, the tissue had failed around it. There was noted to be a void that was palpable with digital palpation down to the level of the hardware. The sutures were cut and removed using 10 blade scalpel and the previous dissection plane was then explored using Draper scissors and electrocautery to dissect down to the femoral and acetabular components. Sharp Hohmann was applied anteriorly. Sharp Hohmann was applied posterior to the acetabular component. After adequate dissection and electrocautery was achieved, the hip arthroplasty was then dislocated with gentle traction and external rotation. The femoral head was then removed using a mallet and large bone tamp. Cultures were obtained from the abscess fluid superficially and then a curved osteotome and mallet was then used to dislodge the acetabular liner. Acetabular liner was noted to be stable and intact, no loosening. The femoral component was noted to be stable and intact, no loosening. The deep acetabular culture was then obtained for aerobic, anaerobic, Gram stain, and then careful sequential sharp debridement with a 10 blade scalpel was then performed of all tissues including use of curette and rongeur for all tissues. This includes the periacetabular region and the proximal femoral region, to remove any fibrinous exudate, transudate, devitalized tissue and glycocalyx evident. Next, the pulsatile lavage, 3 liters of Ancef was used to lavage the entire hip and all surfaces and all tissues followed by use of a second 3 L bag with Ancef and pulsatile lavage. Once completed, the Versajet was then used to debride all tissues and surfaces with the Versajet. Once this was completed, the sterile iodine scrub brush was then used to scrub all tissues and then lavage was performed once again with pulsatile lavage, 3 liters with Ancef. Next, top gloves, top sheaths, and instruments were changed. New suction tip needle Bovie and pulse lavage was then used. After all surfaces were carefully suctioned dry with a clean suction tip, new acetabular liner was impacted in place and noted to be stable. New Biolox Delta ceramic C taper femoral head with a 36 mm x negative 5 mm neck length was impacted on to the trunnion, noted to be stable. Next, the hip was then reduced and noted to be stable. Normal shuck test. Excellent range of motion, no impingement, no instability. Next, the drill holes were made in the proximal femur for enhanced abductor repair using #5 FiberWire sutures. Hemovac drains x2 10-Mongolian were placed, one deep to the iliotibial band and the last one was placed superficial to the iliotibial band. A #5 FiberWire suture was used to perform the enhanced abductor repair, sutured back to greater trochanter through bone tunnels. Next, the joint capsular repair was then performed with interrupted #5 FiberWire suture repair and the vastus lateralis and the gluteus medius were then repaired using interrupted figure of eight #1 Vicryl. The iliotibial band was then closed using #1 Vicryl, the dermis was closed using buried interrupted 2-0 Vicryl, and the skin was closed using skin reza. Next, a sterile compressive ALEXEY drain was applied. The patient was awakened and taken to recovery in stable condition. Job ID: [id number] [facility]
[2021-10-01] MEDS: PIPERACILLIN/TAZOBACTAM 3.375 GM in DEXTROSE 5% 100 ML IV SCH ×3 (01:33→17:47)
[2021-10-01] MEDS ORDERED: VANCOMYCIN TROUGH ONE (05:30)
[2021-10-01] MEDS: oxyCODONE HCL IR 5 MG TAB (IMMEDIATE RELEASE) PO PRN ×3 (05:57→17:46)
[2021-10-01] MEDS: ACETAMINOPHEN 500 MG TAB PO SCH ×3 (05:58→22:13)
[2021-10-01 06:20] LABS: Basophils # (auto) 0.02 K/uL (0-0.2); Basophils % (auto) 0.2 %; Eosinophils # (auto) 0.01 K/uL (0-0.5); Eosinophils % (auto) 0.1 %; Hematocrit (blood only) 28.3 % (37-47); Hemoglobin 9.1 g/dL (12.0-16.0); Immature Granulocytes # (auto) 0.05 K/uL (0.00-0.02); Immature Granulocytes % (auto) 0.4 %; Lymphocytes # (auto) 1.33 K/uL (1.2-3.4); Lymphocytes % (auto) 11.3 %; Mean Corpuscular Hemoglobin 28.4 pg (25-34); Mean Corpuscular Volume 88.4 fL (80-100); Mean Platelet Volume 9.6 fL (7.4-10.4); Monocytes # (auto) 0.88 K/uL (0.11-0.59); Monocytes % (auto) 7.5 %; Neutrophils % (auto) 80.5 %; Platelet Count 268 K/uL (130-400); RDW Coefficient of Variation 14.9 % (11.5-14.5); RDW Standard Deviation 48.6 fL (36.4-46.3); White Blood Count 11.79 K/uL (4.8-10.8)
[2021-10-01 06:22] LABS: Mean Corpuscular Hgb Conc 32.2 g/dL (32-36)
--- NOTE | 2021-10-01 06:37 | Orthopedic Progress Note ---
Date of Service October 01, 2021 Assessment & Plan (1) Infection of prosthetic total hip joint: Plan: POD #1 s/p Right hip incision and drainage with extensive irrigation and debridement and Acetabular liner and femoral head exchange. gram stain and cultures pending, currently on Vanco and Zosyn ASA 81mg po bid PT/OT- WBAT, hip precautions ALEXEY dressing x [address] at least until tomorrow Admission and Anticipated Discharge Date Admission Date: September 29, 2021 Subjective POD #1 s/p Right hip incision and drainage with extensive irrigation and debridement, Acetabular liner and femoral head exchange. Review of Systems Constitutional: no fever and no chills Respiratory: no cough and no dyspnea Cardiovascular: no chest pain, no dyspnea and no orthopnea Gastrointestinal: no abdominal pain, no nausea and no vomiting Physical Exam Physical Exam: Vital Signs Temp 36.9 C 10/01/21 03:28 Pulse 84 10/01/21 03:28 Resp 16 10/01/21 03:28 BP 119/58 L 10/01/21 03:28 Pulse Ox 98 10/01/21 03:28 Intake & Output 09/30/21 09/30/21 10/01/21 06:59 18:59 06:59 Intake Total 635 / 635 270 / 4423.333 4153.333 / 4423.33 3 Output Total 1410 / 1410 Balance 635 / 635 270 / 3013.333 2743.333 / 3013.33 3 Weight 88.8 kg 88.8 kg Intake: IV 535 / 535 270 / 5916.857 6311.333 / 1513.33 3 Piperacillin/T azobactam 3.375 230 / 230 gm In Dextrose 5% 100 ml @ 28. 75 mls/hr IV Q 8H [facility] Rx#: [id number] Sodium Chlorid e 0.9% 1000ML 1, 743.333 / 743.333 000 ml @ 100 m ls/hr IV .Q10H [facility] Rx#:[id number] Vancomycin HCl 1,000 mg In 270 / 540 270 / 540 Sodium Chlorid e 0.9% 250 ml @ 200 mls/hr IV Q12H [facility] Rx#: [id number] Vancomycin HCl 1,750 mg In 535 / 535 Sodium Chlorid e 0.9% 500 ml @ 200 mls/hr IV NOW ONE Rx#: [id number] IV Perioperative 2300 / 2300 Oral 100 / 100 300 / 300 Intake (Blood Pr oduct) Amt 310 / 310 Packed Cells, Leukoreduced 310 / 310 Unit [id number] Output: Urine 200 / 200 Estimated Blood Loss 1000 / 1000 Drain Output 210 / 210 Right Hip 210 / 210 Other: # Unmeasured Voi ds 5 1 Weight Measureme nt Method Standing Scale Constitutional: WD/WN, vitals as above Musculoskeletal: Right Hip: ALEXEY intact and functioning. hemovac drains in place. thigh soft, non-tender. her calf is soft and non-tender, negative Ronit. able to plantar/dorsiflex her ankle, DP palpable. Results & Data ([facility]) Vital Signs (Past 12 Hours) Vital Signs Temp Pulse Pulse Pulse Resp BP BP 10/01/21 03:28 36.9 C 84 16 119/58 L 10/01/21 01:24 36.5 C 82 18 107/67 10/01/21 00:40 36.5 C 87 18 111/70 09/30/21 23:40 36.7 C 91 H 18 103/68 09/30/21 23:10 36.6 C 92 H 18 120/66 09/30/21 22:55 37 C 100 H 20 125/81 09/30/21 22:41 36.7 C 95 H 18 121/75 09/30/21 21:45 36.7 C 89 18 121/84 09/30/21 21:25 82 17 128/77 09/30/21 21:15 84 19 123/74 09/30/21 21:05 82 16 132/77 09/30/21 20:55 36.7 C 88 12 109/68 09/30/21 20:53 112 H 120/81 09/30/21 20:45 112 H 19 137/93 09/30/21 20:35 117 H 20 136/73 09/30/21 20:25 115 H 19 141/80 H 09/30/21 20:15 110 H 12 158/94 H 09/30/21 20:05 98 H 17 147/58 H 09/30/21 19:55 94 H 21 156/81 H 09/30/21 19:47 36.2 C L 91 H 19 144/97 H Pulse Ox 10/01/21 03:28 98 10/01/21 01:24 98 05/14/22 00:40 100 09/30/21 23:40 98 09/30/21 23:10 100 09/30/21 22:55 100 09/30/21 22:41 100 09/30/21 21:45 100 09/30/21 21:25 100 09/30/21 21:15 100 09/30/21 21:05 100 09/30/21 20:55 100 09/30/21 20:53 09/30/21 20:45 100 09/30/21 20:35 98 09/30/21 20:25 98 09/30/21 20:15 98 09/30/21 20:05 100 09/30/21 19:55 100 09/30/21 19:47 100 Laboratory Results Gram stain and cultures pending
[2021-10-01 06:41] LABS: BUN Creatinine Ratio 18.3 (10-20); Calcium 8.6 mg/dl (8.5-10.1); Creatinine Clr Calc Pharmacy 85.1 ml/min; Est GFR (African American) 101.4 ml/min; Est GFR (Non-African American) 87.5 ml/min; Magnesium 1.7 mg/dl (1.7-2.4); Phosphorus 5.8 mg/dl (2.5-4.9); Potassium 4.3 mmol/L (3.5-5.1)
[2021-10-01] MEDS: VANCOMYCIN HCL 1,000 MG in SODIUM CHLORIDE 0.9% 250 ML IV SCH ×2 (06:46→17:47)
--- NOTE | 2021-10-01 07:56 | Pharmacy Report ---
Pharmacy Vanc AUC Short Note - Date of Service October 01, 2021 - Assessment & Plan Assessment 70 year old F receiving vancomycin + pip-tazo for treatment of right prosthetic hip infection. POD# 1 s/p I&D with extensive irrigation and debridement, acetabular liner and femoral head exchange Recent hospital admission due to above. 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 Cultures pending. Plan Vancomycin * Current dose: 1000 mg IV every 12 hours * Vanc level obtained 10/01 @ 0534 resulted at 16.3 mcg/mL. * predicted AUC at steady state: 518 mg/L.hr * predicted trough at steady state: 16.5 mcg/mL * Continue current dose and repeat level in ~48 hours Pharmacy will continue to follow and will adjust dose/frequency as necessary. Thank you.
[2021-10-01] MEDS: PANTOprazole 40 MG TAB PO SCH (08:29)
[2021-10-01] MEDS: CYANOCOBALAMIN (B-12) 500 MCG TABLET PO SCH (08:29)
[2021-10-01] MEDS: MULTIVITAMIN TAB PO SCH (08:29)
[2021-10-01] MEDS: ASPIRIN 81 MG ECTAB PO SCH ×2 (08:29→19:31)
[2021-10-01] MEDS: DOCUSATE SODIUM 100 MG CAP PO SCH ×2 (08:29→19:32)
[2021-10-01] MEDS: GABAPENTIN 100 MG CAP PO SCH ×2 (08:29→19:32)
[2021-10-01] MEDS: INSULIN ASPART PER UNIT SC SCH ×4 (08:30→20:58)
[2021-10-01] MEDS: CALCIUM 600MG + VIT D 400 IU TAB PO SCH ×2 (08:30→19:32)
[2021-10-01] MEDS ORDERED: MULTIVITAMIN TAB PO SCH (09:00)
--- NOTE | 2021-10-01 09:37 | Hospitalist Progress Note ---
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 1. Infected right hip arthroplasty site: Recently drained the week before, at [place], [place]. On Rocephin, to complete total 6 weeks, has PICC line. On admission, again having a lot of drainage. Started on IV vanco by orthopedics Now s/p Right hip incision and drainage with extensive irrigation and debridement and Acetabular liner and femoral head exchange (09/30) Cultx taken in OR - pnding Discussed w/ ortho, added zosyn to vanco for now Likely will discuss further w/ ID after cultx available Further management as per orthopedics. Monitor for acute blood loss anemia required blood transfusion marcia-op. Current Hgb 9.1 2. Diabetes: Holding her home medication. Placed on insulin sliding scale. Follow the blood sugars. 3. Gastroesophageal reflux disease: On Protonix. 4. Hyperlipidemia: On statin. 5. Depression and anxiety: On Celexa. DVT prophylaxis - ASA BID, as per Ortho. DISPOSITION: As per orthopedics. Admission and Anticipated Discharge Date Admission Date: September 29, 2021 Subjective Patient seen in follow-up of infected prosthetic hip joint Now s/p Right hip incision and drainage with extensive irrigation and debridement and Acetabular liner and femoral head exchange, yesterday Patient is laying in bed, in no acute distress Patient denies fevers, chills, chest pain, shortness of breath, abdominal pain, nausea vomiting Review of Systems Review of Systems: All systems reviewed & are unremarkable except as noted in Subjective Physical Exam Physical Exam: GENERAL: WD/WN F, not in acute distress. HEENT: NC/AT. Extraocular muscles intact. No facial droop. NECK: No JVD. No neck masses. CARDIOVASCULAR: S1 and S2 heard. Regular rate and rhythm. No murmur, no gallop. RESPIRATORY SYSTEM: Normal AP diameter. No accessory muscle use. No wheezing, no crackles. ABDOMEN: Soft, bowel sounds present, nontender, no distention. NEURO:Awake and alert, able to answer questions appropriately, no facial asymmetry, speech fluent, moves extremities EXTREMITIES: Right hip surgical site dressing intact Results & Data Results & Data ([facility]) Vital Signs (Past 12 Hours) Vital Signs Temp Pulse Pulse Resp BP BP Pulse Ox 10/01/21 07:37 36.6 C 96 H 16 105/57 L 96 10/01/21 03:28 36.9 C 84 16 119/58 L 98 10/01/21 01:24 36.5 C 82 18 107/67 98 10/01/21 00:40 36.5 C 87 18 111/70 100 09/30/21 23:40 36.7 C 91 H 18 103/68 98 09/30/21 23:10 36.6 C 92 H 18 120/66 100 09/30/21 22:55 37 C 100 H 20 125/81 100 09/30/21 22:41 36.7 C 95 H 18 121/75 100 09/30/21 21:45 36.7 C 89 18 121/84 100 Laboratory Results 10/01/21 10/01/21 10/01/21 Range/Units 08:00 05:34 05:34 WBC 11.79 H (4.8-10.8) K/uL RBC 3.20 L (4.2-5.4) M/uL Hgb 9.1 L (12.0-16.0) g/dL Hct 28.3 L (37-47) % MCV 88.4 (80-100) fL MCH 28.4 (25-34) pg MCHC 32.2 (32-36) g/dL RDW Std Deviation 48.6 H (36.4-46.3) fL RDW Coeff of Vickie 14.9 H (11.5-14.5) % Plt Count 268 (130-400) K/uL MPV 9.6 (7.4-10.4) fL Immature Gran % (Auto) 0.4 % Neut % (Auto) 80.5 % Lymph % (Auto) 11.3 % Bailey % (Auto) 7.5 % Eos % (Auto) 0.1 % Baso % (Auto) 0.2 % Neut # (Auto) 9.50 H (1.4-6.5) K/uL Lymph # (Auto) 1.33 (1.2-3.4) K/uL Bailey # (Auto) 0.88 H (0.11-0.59) K/uL Eos # (Auto) 0.01 (0-0.5) K/uL Baso # (Auto) 0.02 (0-0.2) K/uL Immature Gran # (Auto) 0.05 H (0.00-0.02) K/uL ESR (0-30) mm/hr Sodium (136-145) mmol/L Potassium (3.5-5.1) mmol/L Chloride (98-107) mmol/L Carbon Dioxide (21-32) mmol/L Anion Gap (3-11) BUN (6-23) mg/dl Creatinine (0.6-1.2) mg/dl Est Cr Clr Drug Dosing ml/min Est GFR ( Amer) ml/min Est GFR (Non-Af Amer) ml/min BUN/Creatinine Ratio (10-20) Glucose (70-99(Fasting)) mg/dl POC Glucose 124 H (70-99) mg/dl Calcium (8.5-10.1) mg/dl Phosphorus (2.5-4.9) mg/dl Magnesium (1.7-2.4) mg/dl C-Reactive Protein (0-0.5) mg/dl Vancomycin Trough 16.3 (10-20) mcg/ml SARS-CoV-2, RNA, NAAT (NEGATIVE) Blood Type Antibody Screen Crossmatch 10/01/21 09/30/21 09/30/21 Range/Units 05:34 22:05 21:47 WBC (4.8-10.8) K/uL RBC (4.2-5.4) M/uL Hgb 9.5 L (12.0-16.0) g/dL Hct 30.4 L (37-47) % MCV (80-100) fL MCH (25-34) pg MCHC (32-36) g/dL RDW Std Deviation (36.4-46.3) fL RDW Coeff of Vickie (11.5-14.5) % Plt Count (130-400) K/uL MPV (7.4-10.4) fL Immature Gran % (Auto) % Neut % (Auto) % Lymph % (Auto) % Bailey % (Auto) % Eos % (Auto) % Baso % (Auto) % Neut # (Auto) (1.4-6.5) K/uL Lymph # (Auto) (1.2-3.4) K/uL Bailey # (Auto) (0.11-0.59) K/uL Eos # (Auto) (0-0.5) K/uL Baso # (Auto) (0-0.2) K/uL Immature Gran # (Auto) (0.00-0.02) K/uL ESR (0-30) mm/hr Sodium 138 (136-145) mmol/L Potassium 4.3 (3.5-5.1) mmol/L Chloride 106 (98-107) mmol/L Carbon Dioxide 25 (21-32) mmol/L Anion Gap 7 (3-11) BUN 13 (6-23) mg/dl Creatinine 0.71 (0.6-1.2) mg/dl Est Cr Clr Drug Dosing 85.1 ml/min Est GFR ( Amer) 101.4 ml/min Est GFR (Non-Af Amer) 87.5 ml/min BUN/Creatinine Ratio 18.3 (10-20) Glucose 121 H (70-99(Fasting)) mg/dl POC Glucose 222 H (70-99) mg/dl Calcium 8.6 (8.5-10.1) mg/dl Phosphorus 5.8 H (2.5-4.9) mg/dl Magnesium 1.7 (1.7-2.4) mg/dl C-Reactive Protein (0-0.5) mg/dl Vancomycin Trough (10-20) mcg/ml SARS-CoV-2, RNA, NAAT (NEGATIVE) Blood Type Antibody Screen Crossmatch 09/30/21 09/30/21 09/30/21 Range/Units 20:25 18:30 14:46 WBC (4.8-10.8) K/uL RBC (4.2-5.4) M/uL Hgb 8.3 L (12.0-16.0) g/dL Hct 27.2 L (37-47) % MCV (80-100) fL MCH (25-34) pg MCHC (32-36) g/dL RDW Std Deviation (36.4-46.3) fL RDW Coeff of Vickie (11.5-14.5) % Plt Count (130-400) K/uL MPV (7.4-10.4) fL Immature Gran % (Auto) % Neut % (Auto) % Lymph % (Auto) % Bailey % (Auto) % Eos % (Auto) % Baso % (Auto) % Neut # (Auto) (1.4-6.5) K/uL Lymph # (Auto) (1.2-3.4) K/uL Bailey # (Auto) (0.11-0.59) K/uL Eos # (Auto) (0-0.5) K/uL Baso # (Auto) (0-0.2) K/uL Immature Gran # (Auto) (0.00-0.02) K/uL ESR (0-30) mm/hr Sodium (136-145) mmol/L Potassium (3.5-5.1) mmol/L Chloride (98-107) mmol/L Carbon Dioxide (21-32) mmol/L Anion Gap (3-11) BUN (6-23) mg/dl Creatinine (0.6-1.2) mg/dl Est Cr Clr Drug Dosing ml/min Est GFR ( Amer) ml/min Est GFR (Non-Af Amer) ml/min BUN/Creatinine Ratio (10-20) Glucose (70-99(Fasting)) mg/dl POC Glucose 227 H (70-99) mg/dl Calcium (8.5-10.1) mg/dl Phosphorus (2.5-4.9) mg/dl Magnesium (1.7-2.4) mg/dl C-Reactive Protein (0-0.5) mg/dl Vancomycin Trough (10-20) mcg/ml SARS-CoV-2, RNA, NAAT (NEGATIVE) Blood Type A Positive Antibody Screen NEGATIVE Crossmatch See Detail 09/30/21 09/30/21 09/30/21 Range/Units 14:35 14:35 14:35 WBC 7.30 (4.8-10.8) K/uL RBC 4.09 L (4.2-5.4) M/uL Hgb 11.2 L (12.0-16.0) g/dL Hct 35.7 L (37-47) % MCV 87.3 (80-100) fL MCH 27.4 (25-34) pg MCHC 31.4 L (32-36) g/dL RDW Std Deviation 47.8 H (36.4-46.3) fL RDW Coeff of Vickie 15.0 H (11.5-14.5) % Plt Count 336 (130-400) K/uL MPV 9.8 (7.4-10.4) fL Immature Gran % (Auto) 0.4 % Neut % (Auto) 70.8 % Lymph % (Auto) 19.6 % Bailey % (Auto) 6.7 % Eos % (Auto) 2.1 % Baso % (Auto) 0.4 % Neut # (Auto) 5.17 (1.4-6.5) K/uL Lymph # (Auto) 1.43 (1.2-3.4) K/uL Bailey # (Auto) 0.49 (0.11-0.59) K/uL Eos # (Auto) 0.15 (0-0.5) K/uL Baso # (Auto) 0.03 (0-0.2) K/uL Immature Gran # (Auto) 0.03 H (0.00-0.02) K/uL ESR 95 H (0-30) mm/hr Sodium 139 (136-145) mmol/L Potassium 3.9 (3.5-5.1) mmol/L Chloride 104 (98-107) mmol/L Carbon Dioxide 25 (21-32) mmol/L Anion Gap 10 (3-11) BUN 9 (6-23) mg/dl Creatinine 0.59 L (0.6-1.2) mg/dl Est Cr Clr Drug Dosing 102.4 ml/min Est GFR ( Amer) 109.2 ml/min Est GFR (Non-Af Amer) 94.2 ml/min BUN/Creatinine Ratio 15.3 (10-20) Glucose 116 H (70-99(Fasting)) mg/dl POC Glucose (70-99) mg/dl Calcium 9.1 (8.5-10.1) mg/dl Phosphorus (2.5-4.9) mg/dl Magnesium (1.7-2.4) mg/dl C-Reactive Protein 4.15 H (0-0.5) mg/dl Vancomycin Trough (10-20) mcg/ml SARS-CoV-2, RNA, NAAT (NEGATIVE) Blood Type Antibody Screen Crossmatch 09/30/21 09/30/21 Range/Units 12:05 11:50 WBC (4.8-10.8) K/uL RBC (4.2-5.4) M/uL Hgb (12.0-16.0) g/dL Hct (37-47) % MCV (80-100) fL MCH (25-34) pg MCHC (32-36) g/dL RDW Std Deviation (36.4-46.3) fL RDW Coeff of Vickie (11.5-14.5) % Plt Count (130-400) K/uL MPV (7.4-10.4) fL Immature Gran % (Auto) % Neut % (Auto) % Lymph % (Auto) % Bailey % (Auto) % Eos % (Auto) % Baso % (Auto) % Neut # (Auto) (1.4-6.5) K/uL Lymph # (Auto) (1.2-3.4) K/uL Bailey # (Auto) (0.11-0.59) K/uL Eos # (Auto) (0-0.5) K/uL Baso # (Auto) (0-0.2) K/uL Immature Gran # (Auto) (0.00-0.02) K/uL ESR (0-30) mm/hr Sodium (136-145) mmol/L Potassium (3.5-5.1) mmol/L Chloride (98-107) mmol/L Carbon Dioxide (21-32) mmol/L Anion Gap (3-11) BUN (6-23) mg/dl Creatinine (0.6-1.2) mg/dl Est Cr Clr Drug Dosing ml/min Est GFR ( Amer) ml/min Est GFR (Non-Af Amer) ml/min BUN/Creatinine Ratio (10-20) Glucose (70-99(Fasting)) mg/dl POC Glucose 132 H (70-99) mg/dl Calcium (8.5-10.1) mg/dl Phosphorus (2.5-4.9) mg/dl Magnesium (1.7-2.4) mg/dl C-Reactive Protein (0-0.5) mg/dl Vancomycin Trough (10-20) mcg/ml SARS-CoV-2, RNA, NAAT NEGATIVE (NEGATIVE) Blood Type Antibody Screen Crossmatch Medications Administered Current Inpatient Medications Acetaminophen (Acetaminophen 500 Mg Tab) 1,000 mg PO Q8H NINA Stop: 10/29/21 21:59 Last Admin: 10/01/21 05:58 Dose: 1,000 mg Documented by: Al Hydrox/Mg Hydrox/Simethicone (Aluminum/Magnesium Susp 30 Ml Udc) 30 ml PO Q6H PRN PRN Reason: Dyspepsia Stop: 10/29/21 21:48 Albuterol (Albuterol Hfa 8 Gm Inhaler) 2 puffs INH Q4H PRN PRN Reason: Wheezing Stop: 10/29/21 21:56 Aspirin (Aspirin 81 Mg Ectab) 81 mg PO BID NINA Stop: 10/30/21 21:41 Last Admin: 10/01/21 08:29 Dose: 81 mg Documented by: Atorvastatin Calcium (Atorvastatin 40 Mg Tab) 40 mg PO HS [facility] Stop: 10/30/21 20:59 Last Admin: 09/30/21 22:31 Dose: 40 mg Documented by: Bisacodyl (Bisacodyl 10 Mg Supp) 10 mg SC DAILY PRN PRN Reason: Constipation Stop: 10/30/21 21:41 Citalopram Hydrobromide (Citalopram 20 Mg Tab) 20 mg PO HS [facility] Stop: 10/30/21 20:59 Last Admin: 09/30/21 22:30 Dose: 20 mg Documented by: Cyanocobalamin (Cyanocobalamin (B-12) 500 Mcg Tablet) 1,000 mcg PO QAM NINA Stop: 10/30/21 08:59 Last Admin: 10/01/21 08:29 Dose: 1,000 mcg Documented by: Dextrose (Dextrose 50% 50 Ml Syringe) 25 - 50 ml IV UD PRN; Protocol PRN Reason: Hypoglycemia Protocol Stop: 10/30/21 00:29 Diphenhydramine HCl (Diphenhydramine Capsule 25 Mg Cap) 25 mg PO Q8H PRN PRN Reason: Itching Stop: 10/29/21 21:48 Last Admin: 09/30/21 02:00 Dose: 25 mg Documented by: Docusate Sodium (Docusate Sodium 100 Mg Cap) 100 mg PO BID NINA Stop: 10/30/21 21:41 Last Admin: 10/01/21 08:29 Dose: 100 mg Documented by: Gabapentin (Gabapentin 100 Mg Cap) 200 mg PO BID NINA Stop: 10/30/21 08:59 Last Admin: 10/01/21 08:29 Dose: 200 mg Documented by: Glucagon (Glucagon For Inj 1 Mg Vial) 1 mg IM UD PRN; Protocol PRN Reason: Hypoglycemia Protocol Stop: 10/30/21 00:29 Glucose (Glucose 40% Gel 15 Gm Tube) 15 - 30 gm PO UD PRN; Protocol PRN Reason: Hypoglycemia Protocol Stop: 10/30/21 00:29 Glucose (Glucose 10 Tabs/Tube) 4 - 8 tabs PO UD PRN; Protocol PRN Reason: Hypoglycemia Protocol Stop: 10/30/21 00:29 Heparin Sodium (Beef Lung) (Heparin 10 Unit/Ml 5 Ml Flush) 5 ml FLUSH PRN PRN PRN Reason: Flush Stop: 10/29/21 22:53 Last Admin: 09/30/21 07:53 Dose: 5 ml Documented by: Vancomycin HCl 1,000 mg/ (Sodium Chloride) 270 mls @ 200 mls/hr IV Q12H NINA Stop: 11/11/21 05:59 Last Infusion: 10/01/21 08:09 Dose: Infused Documented by: Piperacillin Sod/Tazobactam (Sod 3.375 gm/ Dextrose) 115 mls @ 28.75 mls/hr IV Q8H NINA; Protocol Stop: 10/03/21 01:59 Last Infusion: 10/01/21 05:55 Dose: Infused Documented by: Insulin Aspart (Insulin Aspart Per Unit) 0 units SC ACHS NINA Stop: 10/30/21 22:14 Last Admin: 10/01/21 08:30 Dose: Not Given Documented by: Loratadine (Loratadine 10 Mg Tab) 10 mg PO HS NINA Stop: 10/30/21 20:59 Last Admin: 09/30/21 22:31 Dose: 10 mg Documented by: Magnesium Hydroxide (Magnesium Hydroxide Susp 30 Ml Udc) 30 ml PO Q6H PRN PRN Reason: Constipation Stop: 10/30/21 21:41 Metoclopramide HCl (Metoclopramide Hcl Inj 5 Mg/Ml 2 Ml Vial) 10 mg IV Q6H PRN PRN Reason: Nausea/Vomiting Stop: 10/29/21 21:48 Miscellaneous (Carbohydrates For Hypoglycemia ) 15 - 30 gm PO UD PRN PRN Reason: Hypoglycemia Treatment Stop: 10/30/21 00:29 Miscellaneous Information (Vancomycin Consult Active) 1 ea N/A UD PRN PRN Reason: Consult Stop: 10/29/21 21:53 Miscellaneous Information (Pharmacy Glycemic Mgmt Consult) 1 ea N/A UD PRN PRN Reason: Consult Stop: 10/29/21 21:59 Miscellaneous Information (Piperacill/Tazobac Consult Active) 1 ea N/A UD PRN PRN Reason: Consult Stop: 10/30/21 20:14 Multivitamins (Multivitamin Tab) 1 tab PO QAM NINA Stop: 10/30/21 08:59 Last Admin: 10/01/21 08:29 Dose: 1 tab Documented by: Multivitamins/Minerals (Calcium 600mg + Vit D 400 Iu Tab) 1 tab PO BID [facility] Stop: 10/30/21 08:59 Last Admin: 10/01/21 08:30 Dose: 1 tab Documented by: Naloxone HCl (Naloxone Hcl 0.4 Mg/1 Ml Vial/Carp) 0.1 mg IV Q5M PRN PRN Reason: Oversedation/Resp Depression Stop: 10/30/21 21:41 Ondansetron HCl (Ondansetron Inj 2 Mg/Ml 2 Ml Vial) 4 mg IV Q6H PRN PRN Reason: Nausea/Vomiting Stop: 10/29/21 21:48 Oxycodone HCl (Oxycodone Hcl Ir 5 Mg Tab (Immediate Release)) 5 - 10 mg PO Q4H PRN PRN Reason: Pain or Pre PT Stop: 10/14/21 21:41 Last Admin: 10/01/21 05:57 Dose: 10 mg Documented by: Pantoprazole Sodium (Pantoprazole 40 Mg Tab) 40 mg PO QAM NINA Stop: 10/30/21 08:59 Last Admin: 10/01/21 08:29 Dose: 40 mg Documented by: Sennosides (Senna 8.6 Mg Tab) 17.2 mg PO HS NINA Stop: 10/30/21 21:41 Last Admin: 09/30/21 22:38 Dose: 17.2 mg Documented by: Zolpidem Tartrate (Zolpidem Tartrate 5 Mg Tab) 5 mg PO HS PRN PRN Reason: Sleep Stop: 10/29/21 21:48
[2021-10-01] MEDS: ATORVASTATIN 40 MG TAB PO SCH (19:32)
[2021-10-01] MEDS: CITALOPRAM 20 MG TAB PO SCH (19:32)
[2021-10-01] MEDS: SENNA 8.6 MG TAB PO SCH (19:33)
[2021-10-01] MEDS: LORATADINE 10 MG TAB PO SCH (19:33)
[2021-10-02] MEDS: PIPERACILLIN/TAZOBACTAM 3.375 GM in DEXTROSE 5% 100 ML IV SCH ×3 (01:57→18:47)
[2021-10-02] MEDS: ACETAMINOPHEN 500 MG TAB PO SCH ×3 (05:27→22:11)
[2021-10-02] MEDS: oxyCODONE HCL IR 5 MG TAB (IMMEDIATE RELEASE) PO PRN ×2 (05:28→22:39)
[2021-10-02] MEDS: VANCOMYCIN HCL 1,000 MG in SODIUM CHLORIDE 0.9% 250 ML IV SCH ×2 (06:07→18:47)
--- NOTE | 2021-10-02 06:15 | Orthopedic Progress Note ---
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 cultures pending, currently on Vanco and Zosyn, to discuss with ID once cultures are back ASA 81mg po bid PT/OT- WBAT, hip precautions ALEXEY dressing x 7 days will cont hemovac until tomorrow Admission and Anticipated Discharge Date Admission Date: September 29, 2021 Subjective POD #2 s/pRight hip incision and drainage with extensive irrigation and debridement, Acetabular liner and femoral head exchange. Review of Systems Constitutional: no fever and no chills Respiratory: no cough and no dyspnea Cardiovascular: no chest pain, no dyspnea and no orthopnea Gastrointestinal: no abdominal pain, no nausea and no vomiting Physical Exam Physical Exam: Vital Signs Temp Pulse Pulse Resp BP Pulse Ox 10/01/21 22:51 37.6 C H 98 H 18 119/67 92 10/01/21 14:55 37.6 C H 99 H 18 98/53 L 93 10/01/21 11:48 36.9 C 88 16 111/58 L 98 10/01/21 07:37 36.6 C 96 H 16 105/57 L 96 Intake and Output 10/01/21 10/01/21 10/02/21 14:59 22:59 06:59 Intake Total 785 / 1387.24 500 / 1387.24 102.24 / 1387.24 Output Total 151 / 281 130 / 281 Balance 634 / 1106.24 500 / 1106.24 -27.76 / 1106.24 Intake: IV 270 / 872.24 500 / 872.24 102.24 / 872.24 Piperacillin/T azobactam 3.375 230 / 332.24 102.24 / 332.24 gm In Dextrose 5% 100 ml @ 28. 75 mls/hr IV Q 8H NINA Rx#: [id number] Vancomycin HCl 1,000 mg In 270 / 540 270 / 540 Sodium Chlorid e 0.9% 250 ml @ 200 mls/hr IV Q12H NINA Rx#: [id number] Oral 515 / 515 Output: Drain Output 150 / 280 130 / 280 Right Hip 150 / 280 130 / 280 # Bowel Movement s Other: # Unmeasured Voi ds 2 Constitutional: WD/WN, vitals as above Musculoskeletal: Right Hip: ALEXEY intact and functioning. hemovac drains in place. thigh soft, non-tender. her calf is soft and non-tender, negative Ronit. able to plantar/dorsiflex her ankle, DP palpable. Results & Data ([facility]) Vital Signs (Past 12 Hours) Vital Signs Temp Pulse Resp BP Pulse Ox 10/01/21 22:51 37.6 C H 98 H 18 119/67 92 Laboratory Results labs pendin
[2021-10-02 07:00] LABS: Hematocrit (blood only) 24.1 % (37-47); Hemoglobin 7.8 g/dL (12.0-16.0); Mean Corpuscular Hemoglobin 28.3 pg (25-34); Mean Corpuscular Hgb Conc 32.4 g/dL (32-36); Mean Corpuscular Volume 87.3 fL (80-100); Mean Platelet Volume 9.6 fL (7.4-10.4); Platelet Count 225 K/uL (130-400); RDW Coefficient of Variation 14.9 % (11.5-14.5); RDW Standard Deviation 47.7 fL (36.4-46.3); Red Blood Count 2.76 M/uL (4.2-5.4); White Blood Count 9.84 K/uL (4.8-10.8)
--- NOTE | 2021-10-02 07:30 | Hospitalist Progress Note ---
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 1. Infected right hip arthroplasty site: Recently drained the week before, at [place], [place]. On Rocephin, to complete total 6 weeks, has PICC line. On admission, again having a lot of drainage. Started on IV vanco by orthopedics Now s/p Right hip incision and drainage with extensive irrigation and debridement and Acetabular liner and femoral head exchange (09/30) Cultx taken in OR - pending Discussed w/ ortho, added zosyn to vanco for now Likely will discuss further w/ ID after cultx available Further management as per orthopedics - PT/OT- WBAT, hip precaution, ALEXEY dressing x 7 days, will cont hemovac until tomorrow Monitor for acute blood loss anemia required blood transfusion marcia-op. Current Hgb 9.1 2. Diabetes: Holding her home medication. Placed on insulin sliding scale. Follow the blood sugars. 3. Gastroesophageal reflux disease: On Protonix. 4. Hyperlipidemia: On statin. 5. Depression and anxiety: On Celexa. DVT prophylaxis - ASA BID, as per Ortho. DISPOSITION: As per orthopedics. Admission and Anticipated Discharge Date Admission Date: September 29, 2021 Subjective Patient seen in follow-up of infected prosthetic hip joint Now s/p Right hip incision and drainage with extensive irrigation and debridement and Acetabular liner and femoral head exchange Patient is laying in bed, in no acute distress Patient denies fevers, chills, chest pain, shortness of breath, abdominal pain, nausea vomiting Review of Systems Review of Systems: All systems reviewed & are unremarkable except as noted in Subjective Physical Exam Physical Exam: GENERAL: WD/WN F, not in acute distress. HEENT: NC/AT. Extraocular muscles intact. No facial droop. NECK: No JVD. No neck masses. CARDIOVASCULAR: S1 and S2 heard. Regular rate and rhythm. No murmur, no gallop. RESPIRATORY SYSTEM: Normal AP diameter. No accessory muscle use. No wheezing, no crackles. ABDOMEN: Soft, bowel sounds present, nontender, no distention. NEURO:Awake and alert, able to answer questions appropriately, no facial asymmetry, speech fluent, moves extremities EXTREMITIES: Right hip surgical site dressing intact, + hemovac Results & Data Results & Data ([facility]) Vital Signs (Past 12 Hours) Vital Signs Temp Pulse Resp BP Pulse Ox 10/02/21 07:04 37 C 102 H 18 124/66 90 10/01/21 22:51 37.6 C H 98 H 18 119/67 92 Laboratory Results 10/02/21 10/02/21 10/01/21 Range/Units 06:44 06:44 20:51 WBC 9.84 (4.8-10.8) K/uL RBC 2.76 L (4.2-5.4) M/uL Hgb 7.8 L (12.0-16.0) g/dL Hct 24.1 L (37-47) % MCV 87.3 (80-100) fL MCH 28.3 (25-34) pg MCHC 32.4 (32-36) g/dL RDW Std Deviation 47.7 H (36.4-46.3) fL RDW Coeff of Vickie 14.9 H (11.5-14.5) % Plt Count 225 (130-400) K/uL MPV 9.6 (7.4-10.4) fL Sodium 135 L (136-145) mmol/L Potassium 3.7 (3.5-5.1) mmol/L Chloride 104 (98-107) mmol/L Carbon Dioxide 26 (21-32) mmol/L Anion Gap 5 (3-11) BUN 8 (6-23) mg/dl Creatinine 0.61 (0.6-1.2) mg/dl Est Cr Clr Drug Dosing 99.1 ml/min Est GFR ( Amer) 108.0 ml/min Est GFR (Non-Af Amer) 93.1 ml/min BUN/Creatinine Ratio 13.1 (10-20) Glucose 169 H (70-99(Fasting)) mg/dl POC Glucose 222 H (70-99) mg/dl Calcium 7.8 L (8.5-10.1) mg/dl Phosphorus 2.9 D (2.5-4.9) mg/dl Magnesium 1.6 L (1.7-2.4) mg/dl Blood Type Antibody Screen Crossmatch 10/01/21 10/01/21 10/01/21 Range/Units 17:08 11:44 08:00 WBC (4.8-10.8) K/uL RBC (4.2-5.4) M/uL Hgb (12.0-16.0) g/dL Hct (37-47) % MCV (80-100) fL MCH (25-34) pg MCHC (32-36) g/dL RDW Std Deviation (36.4-46.3) fL RDW Coeff of Vickie (11.5-14.5) % Plt Count (130-400) K/uL MPV (7.4-10.4) fL Sodium (136-145) mmol/L Potassium (3.5-5.1) mmol/L Chloride (98-107) mmol/L Carbon Dioxide (21-32) mmol/L Anion Gap (3-11) BUN (6-23) mg/dl Creatinine (0.6-1.2) mg/dl Est Cr Clr Drug Dosing ml/min Est GFR ( Amer) ml/min Est GFR (Non-Af Amer) ml/min BUN/Creatinine Ratio (10-20) Glucose (70-99(Fasting)) mg/dl POC Glucose 186 H 213 H 124 H (70-99) mg/dl Calcium (8.5-10.1) mg/dl Phosphorus (2.5-4.9) mg/dl Magnesium (1.7-2.4) mg/dl Blood Type Antibody Screen Crossmatch 09/30/21 Range/Units 14:46 WBC (4.8-10.8) K/uL RBC (4.2-5.4) M/uL Hgb (12.0-16.0) g/dL Hct (37-47) % MCV (80-100) fL MCH (25-34) pg MCHC (32-36) g/dL RDW Std Deviation (36.4-46.3) fL RDW Coeff of Vickie (11.5-14.5) % Plt Count (130-400) K/uL MPV (7.4-10.4) fL Sodium (136-145) mmol/L Potassium (3.5-5.1) mmol/L Chloride (98-107) mmol/L Carbon Dioxide (21-32) mmol/L Anion Gap (3-11) BUN (6-23) mg/dl Creatinine (0.6-1.2) mg/dl Est Cr Clr Drug Dosing ml/min Est GFR ( Amer) ml/min Est GFR (Non-Af Amer) ml/min BUN/Creatinine Ratio (10-20) Glucose (70-99(Fasting)) mg/dl POC Glucose (70-99) mg/dl Calcium (8.5-10.1) mg/dl Phosphorus (2.5-4.9) mg/dl Magnesium (1.7-2.4) mg/dl Blood Type A Positive Antibody Screen NEGATIVE Crossmatch See Detail Medications Administered Current Inpatient Medications Acetaminophen (Acetaminophen 500 Mg Tab) 1,000 mg PO Q8H [facility] Stop: 10/29/21 21:59 Last Admin: 10/02/21 05:27 Dose: 1,000 mg Documented by: Al Hydrox/Mg Hydrox/Simethicone (Aluminum/Magnesium Susp 30 Ml Udc) 30 ml PO Q6H PRN PRN Reason: Dyspepsia Stop: 10/29/21 21:48 Albuterol (Albuterol Hfa 8 Gm Inhaler) 2 puffs INH Q4H PRN PRN Reason: Wheezing Stop: 10/29/21 21:56 Aspirin (Aspirin 81 Mg Ectab) 81 mg PO BID [facility] Stop: 10/30/21 21:41 Last Admin: 10/01/21 19:31 Dose: 81 mg Documented by: Atorvastatin Calcium (Atorvastatin 40 Mg Tab) 40 mg PO [facility] Stop: 10/30/21 20:59 Last Admin: 10/01/21 19:32 Dose: 40 mg Documented by: Bisacodyl (Bisacodyl 10 Mg Supp) 10 mg [place] DAILY PRN PRN Reason: Constipation Stop: 10/30/21 21:41 Citalopram Hydrobromide (Citalopram 20 Mg Tab) 20 mg PO [facility] Stop: 10/30/21 20:59 Last Admin: 10/01/21 19:32 Dose: 20 mg Documented by: Cyanocobalamin (Cyanocobalamin (B-12) 500 Mcg Tablet) 1,000 mcg PO QAM [facility] Stop: 10/30/21 08:59 Last Admin: 10/01/21 08:29 Dose: 1,000 mcg Documented by: Dextrose (Dextrose 50% 50 Ml Syringe) 25 - 50 ml IV UD PRN; Protocol PRN Reason: Hypoglycemia Protocol Stop: 10/30/21 00:29 Diphenhydramine HCl (Diphenhydramine Capsule 25 Mg Cap) 25 mg PO Q8H PRN PRN Reason: Itching Stop: 10/29/21 21:48 Last Admin: 09/30/21 02:00 Dose: 25 mg Documented by: Docusate Sodium (Docusate Sodium 100 Mg Cap) 100 mg PO BID [facility] Stop: 10/30/21 21:41 Last Admin: 10/01/21 19:32 Dose: 100 mg Documented by: Gabapentin (Gabapentin 100 Mg Cap) 200 mg PO BID [facility] Stop: 10/30/21 08:59 Last Admin: 10/01/21 19:32 Dose: 200 mg Documented by: Glucagon (Glucagon For Inj 1 Mg Vial) 1 mg IM UD PRN; Protocol PRN Reason: Hypoglycemia Protocol Stop: 10/30/21 00:29 Glucose (Glucose 40% Gel 15 Gm Tube) 15 - 30 gm PO UD PRN; Protocol PRN Reason: Hypoglycemia Protocol Stop: 10/30/21 00:29 Glucose (Glucose 10 Tabs/Tube) 4 - 8 tabs PO UD PRN; Protocol PRN Reason: Hypoglycemia Protocol Stop: 10/30/21 00:29 Heparin Sodium (Beef Lung) (Heparin 10 Unit/Ml 5 Ml Flush) 5 ml FLUSH PRN PRN PRN Reason: Flush Stop: 10/29/21 22:53 Last Admin: 10/01/21 22:15 Dose: 5 ml Documented by: Vancomycin HCl 1,000 mg/ (Sodium Chloride) 270 mls @ 200 mls/hr IV Q12H [facility] Stop: 11/11/21 05:59 Last Infusion: 10/02/21 07:38 Dose: Infused Documented by: Piperacillin Sod/Tazobactam (Sod 3.375 gm/ Dextrose) 115 mls @ 28.75 mls/hr IV Q8H [facility]; Protocol Stop: 10/03/21 01:59 Last Infusion: 10/02/21 05:30 Dose: Infused Documented by: Magnesium Sulfate/Dextrose (Magnesium Sulfate / D5w) 1 gm in 100 mls @ 50 mls/hr IV ONE ONE Stop: 10/02/21 09:36 Insulin Aspart (Insulin Aspart Per Unit) 0 units SC [facility] Stop: 10/30/21 22:14 Last Admin: 10/01/21 20:58 Dose: 3 units Documented by: Loratadine (Loratadine 10 Mg Tab) 10 mg PO HS [facility] Stop: 10/30/21 20:59 Last Admin: 10/01/21 19:33 Dose: 10 mg Documented by: Magnesium Hydroxide (Magnesium Hydroxide Susp 30 Ml Udc) 30 ml PO Q6H PRN PRN Reason: Constipation Stop: 10/30/21 21:41 Metoclopramide HCl (Metoclopramide Hcl Inj 5 Mg/Ml 2 Ml Vial) 10 mg IV Q6H PRN PRN Reason: Nausea/Vomiting Stop: 10/29/21 21:48 Miscellaneous (Carbohydrates For Hypoglycemia ) 15 - 30 gm PO UD PRN PRN Reason: Hypoglycemia Treatment Stop: 10/30/21 00:29 Miscellaneous Information (Vancomycin Consult Active) 1 ea N/A UD PRN PRN Reason: Consult Stop: 10/29/21 21:53 Miscellaneous Information (Pharmacy Glycemic Mgmt Consult) 1 ea N/A UD PRN PRN Reason: Consult Stop: 10/29/21 21:59 Miscellaneous Information (Piperacill/Tazobac Consult Active) 1 ea N/A UD PRN PRN Reason: Consult Stop: 10/30/21 20:14 Multivitamins (Multivitamin Tab) 1 tab PO QAM [facility] Stop: 10/30/21 08:59 Last Admin: 10/01/21 08:29 Dose: 1 tab Documented by: Multivitamins/Minerals (Calcium 600mg + Vit D 400 Iu Tab) 1 tab PO BID [facility] Stop: 10/30/21 08:59 Last Admin: 10/01/21 19:32 Dose: 1 tab Documented by: Naloxone HCl (Naloxone Hcl 0.4 Mg/1 Ml Vial/Carp) 0.1 mg IV Q5M PRN PRN Reason: Oversedation/Resp Depression Stop: 10/30/21 21:41 Ondansetron HCl (Ondansetron Inj 2 Mg/Ml 2 Ml Vial) 4 mg IV Q6H PRN PRN Reason: Nausea/Vomiting Stop: 10/29/21 21:48 Oxycodone HCl (Oxycodone Hcl Ir 5 Mg Tab (Immediate Release)) 5 - 10 mg PO Q4H PRN PRN Reason: Pain or Pre PT Stop: 10/14/21 21:41 Last Admin: 10/02/21 05:28 Dose: 10 mg Documented by: Pantoprazole Sodium (Pantoprazole 40 Mg Tab) 40 mg PO QAM [facility] Stop: 10/30/21 08:59 Last Admin: 10/01/21 08:29 Dose: 40 mg Documented by: Sennosides (Senna 8.6 Mg Tab) 17.2 mg PO HS [facility] Stop: 10/30/21 21:41 Last Admin: 10/01/21 19:33 Dose: 17.2 mg Documented by: Zolpidem Tartrate (Zolpidem Tartrate 5 Mg Tab) 5 mg PO HS PRN PRN Reason: Sleep Stop: 10/29/21 21:48
[2021-10-02 07:32] LABS: BUN Creatinine Ratio 13.1 (10-20); Calcium 7.8 mg/dl (8.5-10.1); Creatinine Clr Calc Pharmacy 99.1 ml/min; Est GFR (Non-African American) 93.1 ml/min; Magnesium 1.6 mg/dl (1.7-2.4); Phosphorus 2.9 mg/dl (2.5-4.9); Potassium 3.7 mmol/L (3.5-5.1)
[2021-10-02] MEDS ORDERED: MAGNESIUM SULFATE / D5W 1 GM/100 ML BAG IV ONE (07:45)
[2021-10-02] MEDS: ASPIRIN 81 MG ECTAB PO SCH ×2 (08:59→20:33)
[2021-10-02] MEDS: CYANOCOBALAMIN (B-12) 500 MCG TABLET PO SCH (08:59)
[2021-10-02] MEDS: PANTOprazole 40 MG TAB PO SCH (08:59)
[2021-10-02] MEDS: DOCUSATE SODIUM 100 MG CAP PO SCH ×2 (08:59→20:32)
[2021-10-02] MEDS: CALCIUM 600MG + VIT D 400 IU TAB PO SCH ×2 (08:59→20:32)
[2021-10-02] MEDS: GABAPENTIN 100 MG CAP PO SCH ×2 (08:59→20:33)
[2021-10-02] MEDS: MULTIVITAMIN TAB PO SCH (08:59)
[2021-10-02] MEDS ORDERED: INSULIN GLARGINE SOLOSTAR 100 UNITS/ML 3 ML PEN SC SCH (09:00)
[2021-10-02] MEDS: INSULIN ASPART PER UNIT SC SCH ×4 (09:01→20:41)
--- NOTE | 2021-10-02 14:28 | Pharmacy Report ---
Pharmacy Glycemic Short Note 2 - Date of Service October 02, 2021 - Glycemic Short BSG Results (Last 24 hours): 10/01/21 10/01/21 10/02/21 17:08 20:51 06:44 Glucose 169 H POC Glucose 186 H 222 H 10/02/21 10/02/21 08:06 11:55 Glucose POC Glucose 188 H 134 H OUTPATIENT ANTIDIABETIC REGIMEN: * Metformin ER 1000 mg PO BID * Jardiance 25 mg PO daily ASSESSMENT: 10/02 * Patient received total of 13 units of insulin yesterday, no basal * Fasting BSG ~170 mg/dL - plan to add low dose basal this AM * Tightened CF/CR slightly 09/30 * 70 y/o F admitted for hip infection and antibiotic therapy. Patient with history of Type 2 diabetes managed at home on oral Metformin and Jardiance. HbA1c= 09/30/21. * Last night BSG was 201 mg/dl. Novolog was started at that time based on wt and stress between 1 and 2. * Patient is NPO for I&D of R hip infection. * Fasting BSG today was 126 mg/dl. Pre-lunch BSG = 132 mg/dl. * So far, patient has not needed any insulin today. Continued Novolog parameters the same. PLAN FOR INPATIENT GLYCEMIC CONTROL: * Hold outpatient oral diabetes medications * Basal insulin * 8 units daily Qam * Bolus insulin * NovoLog per scale ACHS or Q6hrs while NPO * Goal Range: Low 110 mg/dL - High 140 mg/dL * Correction Factor: 25 mg/dL/unit * Nutritional / Prandial insulin per carb ratio of 1 unit per 9 grams CHO consumed
[2021-10-02] MEDS: ATORVASTATIN 40 MG TAB PO SCH (20:32)
[2021-10-02] MEDS: SENNA 8.6 MG TAB PO SCH (20:32)
[2021-10-02] MEDS: CITALOPRAM 20 MG TAB PO SCH (20:33)
[2021-10-02] MEDS: LORATADINE 10 MG TAB PO SCH (20:34)
[2021-10-03] MEDS: VANCOMYCIN HCL 1,000 MG in SODIUM CHLORIDE 0.9% 250 ML IV SCH ×2 (06:00→18:01)
[2021-10-03] MEDS: ACETAMINOPHEN 500 MG TAB PO SCH ×3 (06:05→20:22)
[2021-10-03 06:37] LABS: Hematocrit (blood only) 24.5 % (37-47); Hemoglobin 7.8 g/dL (12.0-16.0); Mean Corpuscular Hemoglobin 28.1 pg (25-34); Mean Corpuscular Hgb Conc 31.8 g/dL (32-36); Mean Corpuscular Volume 88.1 fL (80-100); Mean Platelet Volume 9.9 fL (7.4-10.4); Platelet Count 267 K/uL (130-400); RDW Coefficient of Variation 14.9 % (11.5-14.5); RDW Standard Deviation 48.2 fL (36.4-46.3); Red Blood Count 2.78 M/uL (4.2-5.4); White Blood Count 8.36 K/uL (4.8-10.8)
[2021-10-03 06:57] LABS: BUN Creatinine Ratio 9.1 (10-20); Calcium 7.9 mg/dl (8.5-10.1); Creatinine Clr Calc Pharmacy 109.9 ml/min; Est GFR (African American) 111.7 ml/min; Est GFR (Non-African American) 96.4 ml/min; Magnesium 1.9 mg/dl (1.7-2.4); Potassium 3.5 mmol/L (3.5-5.1)
[2021-10-03] MEDS ORDERED: PIPERACILLIN/TAZOBACTAM 4.5 GM in DEXTROSE 5% 100 ML IV ONE (07:30)
[2021-10-03] MEDS ORDERED: POTASSIUM CHLORIDE CRTAB 20 MEQ TABCR PO STA (08:28)
--- NOTE | 2021-10-03 08:28 | Hospitalist Progress Note ---
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 1. Infected right hip arthroplasty site: Recently drained the week before, at [place], [place]. On Rocephin, to complete total 6 weeks, has PICC line. On admission, again having a lot of drainage. Started on IV vanco by orthopedics Now s/p Right hip incision and drainage with extensive irrigation and debridement and Acetabular liner and femoral head exchange (09/30) Cultx taken in OR - no growth so far, final results pending Discussed w/ ortho, added zosyn to vanco for now Plan to discuss further w/ ID after cultx available Further management as per orthopedics - PT/OT- WBAT, hip precaution, ALEXEY dressing x 7 days, will cont hemovac until today Monitor for acute blood loss anemia required blood transfusion marcia-op. post op Hgb 9.1, now down to 7.8 - cont. to monitor 2. Diabetes: Holding her home medication. Placed on insulin sliding scale. Follow the blood sugars. 3. Gastroesophageal reflux disease: On Protonix. 4. Hyperlipidemia: On statin. 5. Depression and anxiety: On Celexa. DVT prophylaxis - ASA BID, as per Ortho. DISPOSITION: As per orthopedics. Admission and Anticipated Discharge Date Admission Date: September 29, 2021 Subjective Patient seen in follow-up of infected prosthetic hip joint Now s/p Right hip incision and drainage with extensive irrigation and debridement and Acetabular liner and femoral head exchange Patient is laying in bed, in no acute distress Reports feeling better, and her pain is better controlled Patient denies fevers, chills, chest pain, shortness of breath, abdominal pain, nausea vomiting Review of Systems Review of Systems: All systems reviewed & are unremarkable except as noted in Subjective Physical Exam Physical Exam: GENERAL: WD/WN F, not in acute distress. HEENT: NC/AT. Extraocular muscles intact. No facial droop. NECK: No JVD. No neck masses. CARDIOVASCULAR: S1 and S2 heard. Regular rate and rhythm. No murmur, no gallop. RESPIRATORY SYSTEM: Normal AP diameter. No accessory muscle use. No wheezing, no crackles. ABDOMEN: Soft, bowel sounds present, nontender, no distention. NEURO:Awake and alert, able to answer questions appropriately, no facial asymmetry, speech fluent, moves extremities EXTREMITIES: Right hip surgical site dressing intact, + hemovac Results & Data Results & Data ([facility]) Vital Signs (Past 12 Hours) Vital Signs Temp Pulse Resp BP Pulse Ox 10/03/21 07:49 94/57 L 10/03/21 07:26 36.7 C 83 16 90/54 L 90 10/02/21 22:39 36.9 C 96 H 18 115/73 93 Laboratory Results 10/03/21 10/03/21 10/03/21 Range/Units 08:25 05:57 05:57 WBC 8.36 (4.8-10.8) K/uL RBC 2.78 L (4.2-5.4) M/uL Hgb 7.8 L (12.0-16.0) g/dL Hct 24.5 L (37-47) % MCV 88.1 (80-100) fL MCH 28.1 (25-34) pg MCHC 31.8 L (32-36) g/dL RDW Std Deviation 48.2 H (36.4-46.3) fL RDW Coeff of Vickie 14.9 H (11.5-14.5) % Plt Count 267 (130-400) K/uL MPV 9.9 (7.4-10.4) fL Sodium 138 (136-145) mmol/L Potassium 3.5 (3.5-5.1) mmol/L Chloride 105 (98-107) mmol/L Carbon Dioxide 27 (21-32) mmol/L Anion Gap 6 (3-11) BUN 5 L (6-23) mg/dl Creatinine 0.55 L (0.6-1.2) mg/dl Est Cr Clr Drug Dosing 109.9 ml/min Est GFR ( Amer) 111.7 ml/min Est GFR (Non-Af Amer) 96.4 ml/min BUN/Creatinine Ratio 9.1 L (10-20) Glucose 137 H (70-99(Fasting)) mg/dl POC Glucose 164 H (70-99) mg/dl Calcium 7.9 L (8.5-10.1) mg/dl Magnesium 1.9 (1.7-2.4) mg/dl 10/02/21 10/02/21 10/02/21 Range/Units 20:26 16:57 11:55 WBC (4.8-10.8) K/uL RBC (4.2-5.4) M/uL Hgb (12.0-16.0) g/dL Hct (37-47) % MCV (80-100) fL MCH (25-34) pg MCHC (32-36) g/dL RDW Std Deviation (36.4-46.3) fL RDW Coeff of Vickie (11.5-14.5) % Plt Count (130-400) K/uL MPV (7.4-10.4) fL Sodium (136-145) mmol/L Potassium (3.5-5.1) mmol/L Chloride (98-107) mmol/L Carbon Dioxide (21-32) mmol/L Anion Gap (3-11) BUN (6-23) mg/dl Creatinine (0.6-1.2) mg/dl Est Cr Clr Drug Dosing ml/min Est GFR ( Amer) ml/min Est GFR (Non-Af Amer) ml/min BUN/Creatinine Ratio (10-20) Glucose (70-99(Fasting)) mg/dl POC Glucose 181 H 138 H 134 H (70-99) mg/dl Calcium (8.5-10.1) mg/dl Magnesium (1.7-2.4) mg/dl Medications Administered Current Inpatient Medications Acetaminophen (Acetaminophen 500 Mg Tab) 1,000 mg PO Q8H [facility] Stop: 10/29/21 21:59 Last Admin: 10/03/21 06:05 Dose: 1,000 mg Documented by: Al Hydrox/Mg Hydrox/Simethicone (Aluminum/Magnesium Susp 30 Ml Udc) 30 ml PO Q6H PRN PRN Reason: Dyspepsia Stop: 10/29/21 21:48 Albuterol (Albuterol Hfa 8 Gm Inhaler) 2 puffs INH Q4H PRN PRN Reason: Wheezing Stop: 10/29/21 21:56 Aspirin (Aspirin 81 Mg Ectab) 81 mg PO BID [facility] Stop: 10/30/21 21:41 Last Admin: 10/03/21 09:41 Dose: 81 mg Documented by: Atorvastatin Calcium (Atorvastatin 40 Mg Tab) 40 mg PO HS [facility] Stop: 10/30/21 20:59 Last Admin: 10/02/21 20:32 Dose: 40 mg Documented by: Bisacodyl (Bisacodyl 10 Mg Supp) 10 mg [place] DAILY PRN PRN Reason: Constipation Stop: 10/30/21 21:41 Citalopram Hydrobromide (Citalopram 20 Mg Tab) 20 mg PO HS [facility] Stop: 10/30/21 20:59 Last Admin: 10/02/21 20:33 Dose: 20 mg Documented by: Cyanocobalamin (Cyanocobalamin (B-12) 500 Mcg Tablet) 1,000 mcg PO QAM [facility] Stop: 10/30/21 08:59 Last Admin: 10/03/21 08:57 Dose: 1,000 mcg Documented by: Dextrose (Dextrose 50% 50 Ml Syringe) 25 - 50 ml IV UD PRN; Protocol PRN Reason: Hypoglycemia Protocol Stop: 10/30/21 00:29 Diphenhydramine HCl (Diphenhydramine Capsule 25 Mg Cap) 25 mg PO Q8H PRN PRN Reason: Itching Stop: 10/29/21 21:48 Last Admin: 09/30/21 02:00 Dose: 25 mg Documented by: Docusate Sodium (Docusate Sodium 100 Mg Cap) 100 mg PO BID [facility] Stop: 10/30/21 21:41 Last Admin: 10/03/21 08:59 Dose: Not Given Documented by: Gabapentin (Gabapentin 100 Mg Cap) 200 mg PO BID [facility] Stop: 10/30/21 08:59 Last Admin: 10/03/21 08:58 Dose: 200 mg Documented by: Glucagon (Glucagon For Inj 1 Mg Vial) 1 mg IM UD PRN; Protocol PRN Reason: Hypoglycemia Protocol Stop: 10/30/21 00:29 Glucose (Glucose 40% Gel 15 Gm Tube) 15 - 30 gm PO UD PRN; Protocol PRN Reason: Hypoglycemia Protocol Stop: 10/30/21 00:29 Glucose (Glucose 10 Tabs/Tube) 4 - 8 tabs PO UD PRN; Protocol PRN Reason: Hypoglycemia Protocol Stop: 10/30/21 00:29 Heparin Sodium (Beef Lung) (Heparin 10 Unit/Ml 5 Ml Flush) 5 ml FLUSH PRN PRN PRN Reason: Flush Stop: 10/29/21 22:53 Last Admin: 10/03/21 05:47 Dose: 5 ml Documented by: Vancomycin HCl 1,000 mg/ (Sodium Chloride) 270 mls @ 200 mls/hr IV Q12H [facility] Stop: 11/11/21 05:59 Last Infusion: 10/03/21 07:45 Dose: Infused Documented by: Piperacillin Sod/Tazobactam (Sod 3.375 gm/ Dextrose) 115 mls @ 28.75 mls/hr IV Q8H [facility]; Protocol Stop: 11/14/21 11:59 Insulin Aspart (Insulin Aspart Per Unit) 0 units SC ACHS [facility] Stop: 10/30/21 22:14 Last Admin: 10/03/21 09:03 Dose: 5 units Documented by: Insulin Glargine (Insulin Glargine Solostar 100 Units/Ml 3 Ml Pen) 10 units SC DAILY [facility] Stop: 11/01/21 08:59 Last Admin: 10/03/21 09:04 Dose: 10 units Documented by: Lactobacillus Acidophilus (Advanced Probiotic 1250 Mg Capsule) 2 cap PO DAILY [facility] Stop: 11/02/21 09:44 Last Admin: 10/03/21 09:59 Dose: 2 cap Documented by: Loratadine (Loratadine 10 Mg Tab) 10 mg PO HS [facility] Stop: 10/30/21 20:59 Last Admin: 10/02/21 20:34 Dose: 10 mg Documented by: Magnesium Hydroxide (Magnesium Hydroxide Susp 30 Ml Udc) 30 ml PO Q6H PRN PRN Reason: Constipation Stop: 10/30/21 21:41 Metoclopramide HCl (Metoclopramide Hcl Inj 5 Mg/Ml 2 Ml Vial) 10 mg IV Q6H PRN PRN Reason: Nausea/Vomiting Stop: 10/29/21 21:48 Miscellaneous (Carbohydrates For Hypoglycemia ) 15 - 30 gm PO UD PRN PRN Reason: Hypoglycemia Treatment Stop: 10/30/21 00:29 Miscellaneous Information (Vancomycin Consult Active) 1 ea N/A UD PRN PRN Reason: Consult Stop: 10/29/21 21:53 Miscellaneous Information (Pharmacy Glycemic Mgmt Consult) 1 ea N/A UD PRN PRN Reason: Consult Stop: 10/29/21 21:59 Miscellaneous Information (Piperacill/Tazobac Consult Active) 1 ea N/A UD PRN PRN Reason: Consult Stop: 10/30/21 20:14 Multivitamins (Multivitamin Tab) 1 tab PO QAM [facility] Stop: 10/30/21 08:59 Last Admin: 10/03/21 09:42 Dose: 1 tab Documented by: Multivitamins/Minerals (Calcium 600mg + Vit D 400 Iu Tab) 1 tab PO BID [facility] Stop: 10/30/21 08:59 Last Admin: 10/03/21 08:58 Dose: 1 tab Documented by: Naloxone HCl (Naloxone Hcl 0.4 Mg/1 Ml Vial/Carp) 0.1 mg IV Q5M PRN PRN Reason: Oversedation/Resp Depression Stop: 10/30/21 21:41 Ondansetron HCl (Ondansetron Inj 2 Mg/Ml 2 Ml Vial) 4 mg IV Q6H PRN PRN Reason: Nausea/Vomiting Stop: 10/29/21 21:48 Oxycodone HCl (Oxycodone Hcl Ir 5 Mg Tab (Immediate Release)) 5 - 10 mg PO Q4H PRN PRN Reason: Pain or Pre PT Stop: 10/14/21 21:41 Last Admin: 10/02/21 22:39 Dose: 5 mg Documented by: Pantoprazole Sodium (Pantoprazole 40 Mg Tab) 40 mg PO QAM [facility] Stop: 10/30/21 08:59 Last Admin: 10/03/21 08:59 Dose: 40 mg Documented by: Sennosides (Senna 8.6 Mg Tab) 17.2 mg PO HS [facility] Stop: 10/30/21 21:41 Last Admin: 10/02/21 20:32 Dose: 17.2 mg Documented by: Zolpidem Tartrate (Zolpidem Tartrate 5 Mg Tab) 5 mg PO HS PRN PRN Reason: Sleep Stop: 10/29/21 21:48
[2021-10-03] MEDS: CYANOCOBALAMIN (B-12) 500 MCG TABLET PO SCH (08:57)
[2021-10-03] MEDS: GABAPENTIN 100 MG CAP PO SCH ×2 (08:58→20:22)
[2021-10-03] MEDS: CALCIUM 600MG + VIT D 400 IU TAB PO SCH ×2 (08:58→20:23)
[2021-10-03] MEDS: PANTOprazole 40 MG TAB PO SCH (08:59)
[2021-10-03] MEDS: DOCUSATE SODIUM 100 MG CAP PO SCH ×2 (08:59→20:23)
[2021-10-03] MEDS ORDERED: INSULIN GLARGINE SOLOSTAR 100 UNITS/ML 3 ML PEN SC SCH (09:00)
[2021-10-03] MEDS: INSULIN ASPART PER UNIT SC SCH ×4 (09:03→21:23)
[2021-10-03] MEDS: ASPIRIN 81 MG ECTAB PO SCH ×2 (09:41→20:23)
[2021-10-03] MEDS: MULTIVITAMIN TAB PO SCH (09:42)
[2021-10-03] MEDS: ADVANCED PROBIOTIC 1250 MG CAPSULE PO SCH (09:59)
[2021-10-03] MEDS: PIPERACILLIN/TAZOBACTAM 3.375 GM in DEXTROSE 5% 100 ML IV SCH ×2 (12:09→20:19)
--- NOTE | 2021-10-03 15:19 | Orthopedic Progress Note ---
Date of Service October 03, 2021 Assessment & Plan (1) Infection of prosthetic total hip joint: Plan: POD #3 s/p Right hip incision and drainage with extensive irrigation and debridement and Acetabular liner and femoral head exchange. cultures pending, currently on Vanco and Zosyn, to discuss with ID once cultures are back--no growth on the cultures to date. ASA 81mg po bid PT/OT- WBAT, hip precautions ALEXEY dressing x 7 days--a new ALEXEY dressing may need to be applied prior to discharge. There is saturation at the central portion of the dressing. Hemovac drained approximately 50 cc through the first shift today. We will continue the Hemovac and consider removing it tomorrow. Admission and Anticipated Discharge Date Admission Date: September 29, 2021 Subjective Doing well. States her pain is controlled in the right hip. Denies chest pain, shortness of breath, lightheadedness. No new complaints today. Review of Systems Constitutional: no fever and no chills Respiratory: no cough and no dyspnea Cardiovascular: no chest pain, no dyspnea and no orthopnea Gastrointestinal: no abdominal pain, no nausea and no vomiting Physical Exam Constitutional: WD/WN, vitals as above no acute distress Neck: trachea midline Musculoskeletal: Hip: + surgical incision (ALEXEY dressing functioning. Mild saturation centrally) and + surgical drain present (50 cc drainage today) Skin: no rashes, warm and dry Trauma: no evidence of skin trauma Neurologic: normal touch/pain/proprioception Psychiatric: A+Ox3, euthymic affect Speech: normal rate/rhythm/volume of speech Lymphatic: no cervical or axillary lymphadenopathy Results & Data ([facility]) Vital Signs (Past 12 Hours) Vital Signs Temp Pulse Pulse Resp BP Pulse Ox 10/03/21 11:37 37.0 C 78 17 100/40 L 96 10/03/21 07:49 94/57 L 10/03/21 07:26 36.7 C 83 16 90/54 L 90 Laboratory Results Spec: [id number] Collected: 09/30/21-K Received: 09/30/[address]: Reinier [email or web address] Source: Hip,Right OV Order: Ordered: Aer/Zayda Cult/Sm Comments: Comment 3. Right HIp Deep Acetabular Implant Culture Procedure Result Verified Site Gram Stain Final 10/01/21 Gram Stain Result Few WBCs Seen No Organisms Seen Aero/Zayda Cult Preliminary 10/03/21 No growth to date.
[2021-10-03] MEDS: LORATADINE 10 MG TAB PO SCH (20:22)
[2021-10-03] MEDS: CITALOPRAM 20 MG TAB PO SCH (20:23)
[2021-10-03] MEDS: ATORVASTATIN 40 MG TAB PO SCH (20:23)
[2021-10-03] MEDS: SENNA 8.6 MG TAB PO SCH (20:24)
[2021-10-04] MEDS: PIPERACILLIN/TAZOBACTAM 3.375 GM in DEXTROSE 5% 100 ML IV SCH ×3 (04:05→21:37)
[2021-10-04] MEDS ORDERED: VANCOMYCIN TROUGH ONE (05:30)
[2021-10-04] MEDS: ACETAMINOPHEN 500 MG TAB PO SCH ×3 (06:25→21:37)
[2021-10-04 06:29] LABS: Hematocrit (blood only) 24.6 % (37-47); Hemoglobin 7.9 g/dL (12.0-16.0); Mean Corpuscular Hemoglobin 28.1 pg (25-34); Mean Corpuscular Hgb Conc 32.1 g/dL (32-36); Mean Corpuscular Volume 87.5 fL (80-100); Mean Platelet Volume 9.4 fL (7.4-10.4); Platelet Count 298 K/uL (130-400); RDW Coefficient of Variation 15.1 % (11.5-14.5); Red Blood Count 2.81 M/uL (4.2-5.4); White Blood Count 5.72 K/uL (4.8-10.8)
[2021-10-04 07:00] LABS: BUN Creatinine Ratio 8.9 (10-20); Calcium 7.9 mg/dl (8.5-10.1); Creatinine Clr Calc Pharmacy 107.9 ml/min; Est GFR (Non-African American) 95.8 ml/min; Potassium 3.7 mmol/L (3.5-5.1)
[2021-10-04] MEDS ORDERED: VANCOMYCIN HCL 1,250 MG in SODIUM CHLORIDE 0.9% 250 ML IV ONE (07:30)
[2021-10-04] MEDS: VANCOMYCIN HCL 1,000 MG in SODIUM CHLORIDE 0.9% 250 ML IV SCH (07:41)
[2021-10-04] MEDS ORDERED: INSULIN GLARGINE SOLOSTAR 100 UNITS/ML 3 ML PEN SC SCH (09:00)
[2021-10-04] MEDS: INSULIN ASPART PER UNIT SC SCH ×4 (09:02→20:17)
[2021-10-04] MEDS: ASPIRIN 81 MG ECTAB PO SCH ×2 (09:05→20:18)
[2021-10-04] MEDS: GABAPENTIN 100 MG CAP PO SCH ×2 (09:05→20:17)
[2021-10-04] MEDS: MULTIVITAMIN TAB PO SCH (09:06)
[2021-10-04] MEDS: CALCIUM 600MG + VIT D 400 IU TAB PO SCH ×2 (09:06→20:18)
[2021-10-04] MEDS: CYANOCOBALAMIN (B-12) 500 MCG TABLET PO SCH (09:06)
[2021-10-04] MEDS: PANTOprazole 40 MG TAB PO SCH (09:06)
[2021-10-04] MEDS: DOCUSATE SODIUM 100 MG CAP PO SCH ×2 (09:06→20:17)
[2021-10-04] MEDS: ADVANCED PROBIOTIC 1250 MG CAPSULE PO SCH (09:06)
--- NOTE | 2021-10-04 09:39 | Pharmacy Report ---
Pharmacy Glycemic Short Note 2 - Date of Service October 04, 2021 - Glycemic Short BSG Results (Last 24 hours): 10/03/21 10/03/21 10/03/21 12:23 17:31 20:45 Glucose POC Glucose 143 H 144 H 172 H 10/04/21 10/04/21 06:09 08:28 Glucose 135 H POC Glucose 154 H OUTPATIENT ANTIDIABETIC REGIMEN: * Metformin ER 1000 mg PO BID * Jardiance 25 mg PO daily * HbA1c: 7.1% (09/30/21) ASSESSMENT: 10/04 * BSGs yesterday of 164, 143, 144, and 172 mg/dL, fasting BSG of 154 mg/dL * Received 28 units of insulin (10 units of basal and 18 units of prandial/correctional bolus) * Will continue to gradually increase basal insulin today, continue current Novolog parameters * Continues on broad spectrum antibiotics with vancomycin and Zosyn 10/02 * Patient received total of 13 units of insulin yesterday, no basal * Fasting BSG ~170 mg/dL - plan to add low dose basal this AM * Tightened CF/CR slightly 09/30 * 70 y/o F admitted for hip infection and antibiotic therapy. Patient with history of Type 2 diabetes managed at home on oral Metformin and Jardiance. HbA1c= 09/30/21. * Last night BSG was 201 mg/dl. Novolog was started at that time based on wt and stress between 1 and 2. * Patient is NPO for I&D of R hip infection. * Fasting BSG today was 126 mg/dl. Pre-lunch BSG = 132 mg/dl. * So far, patient has not needed any insulin today. Continued Novolog parameters the same. PLAN FOR INPATIENT GLYCEMIC CONTROL: * Hold outpatient oral diabetes medications * Basal insulin - increase * 12 units daily Qam * Bolus insulin * NovoLog per scale ACHS or Q6hrs while NPO * Goal Range: Low 110 mg/dL - High 140 mg/dL * Correction Factor: 25 mg/dL/unit * Nutritional / Prandial insulin per carb ratio of 1 unit per 9 grams CHO consumed
--- NOTE | 2021-10-04 10:12 | Orthopedic Progress Note ---
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 cultures pending, currently on Vanco and Zosyn, to discuss with ID once cultures are back--no growth on the cultures to date. ASA 81mg po bid PT/OT- WBAT, hip precautions new ALEXEY today, will d/c hemovac as well. Admission and Anticipated Discharge Date Admission Date: September 29, 2021 Subjective POD #4 s/pRight hip incision and drainage with extensive irrigation and debridement, Acetabular liner and femoral head exchange. Review of Systems Constitutional: no fever and no chills Respiratory: no cough and no dyspnea Cardiovascular: no chest pain, no dyspnea and no orthopnea Gastrointestinal: no abdominal pain, no nausea and no vomiting Physical Exam Physical Exam: Vital Signs Temp Pulse Pulse Resp BP Pulse Ox 10/04/21 07:41 36.6 C 82 18 113/68 93 10/03/21 22:18 36.9 C 87 18 117/71 94 10/03/21 11:37 37.0 C 78 17 100/40 L 96 Intake and Output 10/03/21 10/04/21 10/04/21 22:59 06:59 14:59 Intake Total 385 / 1130 115 / 1130 390 / 390 Balance 385 / 1080 115 / 1080 390 / 390 Intake: IV 385 / 890 115 / 890 390 / 390 Piperacillin/T azobactam 3.375 115 / 230 115 / 230 115 / 115 gm In Dextrose 5% 100 ml @ 28. 75 mls/hr IV Q 8H [facility] Rx#: [id number] Vancomycin HCl 1,250 mg In 270 / 540 275 / 275 Sodium Chlorid e 0.9% 250 ml @ 200 mls/hr IV ONE ONE Rx#: [id number] Musculoskeletal: Hip: + surgical incision (ALEXEY dressing functioning. Mild saturation centrally) and + surgical drain present (50 cc drainage today) Results & Data ([facility]) Vital Signs (Past 12 Hours) Vital Signs Temp Pulse Resp BP Pulse Ox 10/04/21 07:41 36.6 C 82 18 113/68 93 10/03/21 22:18 36.9 C 87 18 117/71 94 Laboratory Results 09/30/21 16:42 Gram Stain - Final Hip,Right 09/30/21 Unknown Gram Stain - Final Hip,Right 09/30/21 Unknown Gram Stain - Final Hip,Right Microbiology 09/30/21 16:42 Hip,Right Gram Stain - Final 09/30/21 16:42 Hip,Right Aerobic and Anaerobic Culture - Preliminary No growth to date. 09/30/21 Unknown Hip,Right Gram Stain - Final 09/30/21 Unknown Hip,Right Aerobic and Anaerobic Culture - Preliminary No growth to date. 09/30/21 Unknown Hip,Right Gram Stain - Final 09/30/21 Unknown Hip,Right Aerobic and Anaerobic Culture - Preliminary No growth to date.
--- NOTE | 2021-10-04 13:04 | Pharmacy Report ---
Pharmacy Vanc AUC Short Note - Date of Service October 04, 2021 - Assessment & Plan Assessment 70 year old F receiving vancomycin + pip-tazo for treatment of right prosthetic hip infection. POD# 4 s/p I&D with extensive irrigation and debridement, acetabular liner and femoral head exchange Recent hospital admission due to above. Patient was discharged on 6 weeks of ceftriaxone (she had completed 1 week [facility] to [place]) Day # 5 of antimicrobial therapy. Right hip cultures show no growth. ID consult pending. Plan Vancomycin * AUC/SHELLEY is the preferred PK/PD target for vancomycin * AUC guided dosing is effective and associated with decreased risk of nephrotoxicity compared to traditional trough targets * random level of 12.6 mcg/mL is not predicted to achieve target AUC/SHELLEY of 400- 600 mg/L.hr * Change to 1250 mg IV every 12 hours Zosyn * 3.375 g IV q8h Pharmacy will continue to follow and will adjust dose/frequency as necessary. Thank you.
--- NOTE | 2021-10-04 16:23 | Hospitalist Progress Note ---
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 1. Infected right hip arthroplasty site: Recently drained the week before, at [place], [place]. On Rocephin, to complete total 6 weeks, has PICC line. On admission, again having a lot of drainage. Started on IV vanco by orthopedics Now s/p Right hip incision and drainage with extensive irrigation and debridement and Acetabular liner and femoral head exchange (09/30) Cultx taken in OR - no growth so far, final results pending Discussed w/ ortho, added zosyn to vanco for now Plan to discuss further w/ ID after cultx available Further management as per orthopedics - PT/OT- WBAT, hip precaution, new ALEXEY dressing, DC hemovac today Monitor for acute blood loss anemia required blood transfusion marcia-op. post op Hgb 9.1, now down to 7.9 (but stable since 10/02) - cont. to monitor 2. Diabetes: Holding her home medication. Placed on insulin sliding scale. Follow the blood sugars. 3. Gastroesophageal reflux disease: On Protonix. 4. Hyperlipidemia: On statin. 5. Depression and anxiety: On Celexa. DVT prophylaxis - ASA BID, as per Ortho. DISPOSITION: As per orthopedics. Admission and Anticipated Discharge Date Admission Date: September 29, 2021 Subjective Patient seen in follow-up of infected prosthetic hip joint Now s/p Right hip incision and drainage with extensive irrigation and debridement and Acetabular liner and femoral head exchange Patient is laying in bed, in no acute distress Reports feeling better, and her pain is better controlled She ambulated today w/o much difficulty Patient denies fevers, chills, chest pain, shortness of breath, abdominal pain, nausea vomiting Review of Systems Review of Systems: All systems reviewed & are unremarkable except as noted in Subjective Physical Exam Physical Exam: GENERAL: WD/WN F, not in acute distress. HEENT: NC/AT. Extraocular muscles intact. No facial droop. NECK: No JVD. No neck masses. CARDIOVASCULAR: S1 and S2 heard. Regular rate and rhythm. No murmur, no gallop. RESPIRATORY SYSTEM: Normal AP diameter. No accessory muscle use. No wheezing, no crackles. ABDOMEN: Soft, bowel sounds present, nontender, no distention. NEURO:Awake and alert, able to answer questions appropriately, no facial asymm etry, speech fluent, moves extremities EXTREMITIES: Right hip surgical site dressing intact Results & Data Results & Data ([facility]) Vital Signs (Past 12 Hours) Vital Signs Temp Pulse Resp BP Pulse Ox 10/04/21 15:24 36.6 C 87 18 111/56 L 94 10/04/21 07:41 36.6 C 82 18 113/68 93 Laboratory Results 10/04/21 10/04/21 10/04/21 Range/Units 12:18 08:28 06:09 WBC (4.8-10.8) K/uL RBC (4.2-5.4) M/uL Hgb (12.0-16.0) g/dL Hct (37-47) % MCV (80-100) fL MCH (25-34) pg MCHC (32-36) g/dL RDW Std Deviation (36.4-46.3) fL RDW Coeff of Vickie (11.5-14.5) % Plt Count (130-400) K/uL MPV (7.4-10.4) fL Sodium 140 (136-145) mmol/L Potassium 3.7 (3.5-5.1) mmol/L Chloride 107 (98-107) mmol/L Carbon Dioxide 27 (21-32) mmol/L Anion Gap 6 (3-11) BUN 5 L (6-23) mg/dl Creatinine 0.56 L (0.6-1.2) mg/dl Est Cr Clr Drug Dosing 107.9 ml/min Est GFR ( Amer) 111.0 ml/min Est GFR (Non-Af Amer) 95.8 ml/min BUN/Creatinine Ratio 8.9 L (10-20) Glucose 135 H (70-99(Fasting)) mg/dl POC Glucose 169 H 154 H (70-99) mg/dl Calcium 7.9 L (8.5-10.1) mg/dl Vancomycin Trough (10-20) mcg/ml 10/04/21 10/04/21 10/03/21 Range/Units 06:09 06:09 20:45 WBC 5.72 (4.8-10.8) K/uL RBC 2.81 L (4.2-5.4) M/uL Hgb 7.9 L (12.0-16.0) g/dL Hct 24.6 L (37-47) % MCV 87.5 (80-100) fL MCH 28.1 (25-34) pg MCHC 32.1 (32-36) g/dL RDW Std Deviation 48.0 H (36.4-46.3) fL RDW Coeff of Vickie 15.1 H (11.5-14.5) % Plt Count 298 (130-400) K/uL MPV 9.4 (7.4-10.4) fL Sodium (136-145) mmol/L Potassium (3.5-5.1) mmol/L Chloride (98-107) mmol/L Carbon Dioxide (21-32) mmol/L Anion Gap (3-11) BUN (6-23) mg/dl Creatinine (0.6-1.2) mg/dl Est Cr Clr Drug Dosing ml/min Est GFR ( Amer) ml/min Est GFR (Non-Af Amer) ml/min BUN/Creatinine Ratio (10-20) Glucose (70-99(Fasting)) mg/dl POC Glucose 172 H (70-99) mg/dl Calcium (8.5-10.1) mg/dl Vancomycin Trough 12.6 (10-20) mcg/ml 10/03/21 Range/Units 17:31 WBC (4.8-10.8) K/uL RBC (4.2-5.4) M/uL Hgb (12.0-16.0) g/dL Hct (37-47) % MCV (80-100) fL MCH (25-34) pg MCHC (32-36) g/dL RDW Std Deviation (36.4-46.3) fL RDW Coeff of Vickie (11.5-14.5) % Plt Count (130-400) K/uL MPV (7.4-10.4) fL Sodium (136-145) mmol/L Potassium (3.5-5.1) mmol/L Chloride (98-107) mmol/L Carbon Dioxide (21-32) mmol/L Anion Gap (3-11) BUN (6-23) mg/dl Creatinine (0.6-1.2) mg/dl Est Cr Clr Drug Dosing ml/min Est GFR ( Amer) ml/min Est GFR (Non-Af Amer) ml/min BUN/Creatinine Ratio (10-20) Glucose (70-99(Fasting)) mg/dl POC Glucose 144 H (70-99) mg/dl Calcium (8.5-10.1) mg/dl Vancomycin Trough (10-20) mcg/ml Medications Administered Current Inpatient Medications Acetaminophen (Acetaminophen 500 Mg Tab) 1,000 mg PO Q8H NINA Stop: 10/29/21 21:59 Last Admin: 10/04/21 13:01 Dose: 1,000 mg Documented by: Al Hydrox/Mg Hydrox/Simethicone (Aluminum/Magnesium Susp 30 Ml Udc) 30 ml PO Q6H PRN PRN Reason: Dyspepsia Stop: 10/29/21 21:48 Albuterol (Albuterol Hfa 8 Gm Inhaler) 2 puffs INH Q4H PRN PRN Reason: Wheezing Stop: 10/29/21 21:56 Aspirin (Aspirin 81 Mg Ectab) 81 mg PO BID [facility] Stop: 10/30/21 21:41 Last Admin: 10/04/21 09:05 Dose: 81 mg Documented by: Atorvastatin Calcium (Atorvastatin 40 Mg Tab) 40 mg PO [facility] Stop: 10/30/21 20:59 Last Admin: 10/03/21 20:23 Dose: 40 mg Documented by: Bisacodyl (Bisacodyl 10 Mg Supp) 10 mg TX DAILY PRN PRN Reason: Constipation Stop: 10/30/21 21:41 Citalopram Hydrobromide (Citalopram 20 Mg Tab) 20 mg PO [facility] Stop: 10/30/21 20:59 Last Admin: 10/03/21 20:23 Dose: 20 mg Documented by: Cyanocobalamin (Cyanocobalamin (B-12) 500 Mcg Tablet) 1,000 mcg PO QAM [facility] Stop: 10/30/21 08:59 Last Admin: 10/04/21 09:06 Dose: 1,000 mcg Documented by: Dextrose (Dextrose 50% 50 Ml Syringe) 25 - 50 ml IV UD PRN; Protocol PRN Reason: Hypoglycemia Protocol Stop: 10/30/21 00:29 Diphenhydramine HCl (Diphenhydramine Capsule 25 Mg Cap) 25 mg PO Q8H PRN PRN Reason: Itching Stop: 10/29/21 21:48 Last Admin: 09/30/21 02:00 Dose: 25 mg Documented by: Docusate Sodium (Docusate Sodium 100 Mg Cap) 100 mg PO BID NINA Stop: 10/30/21 21:41 Last Admin: 10/04/21 09:06 Dose: 100 mg Documented by: Gabapentin (Gabapentin 100 Mg Cap) 200 mg PO BID NINA Stop: 10/30/21 08:59 Last Admin: 10/04/21 09:05 Dose: 200 mg Documented by: Glucagon (Glucagon For Inj 1 Mg Vial) 1 mg IM UD PRN; Protocol PRN Reason: Hypoglycemia Protocol Stop: 10/30/21 00:29 Glucose (Glucose 40% Gel 15 Gm Tube) 15 - 30 gm PO UD PRN; Protocol PRN Reason: Hypoglycemia Protocol Stop: 10/30/21 00:29 Glucose (Glucose 10 Tabs/Tube) 4 - 8 tabs PO UD PRN; Protocol PRN Reason: Hypoglycemia Protocol Stop: 10/30/21 00:29 Heparin Sodium (Beef Lung) (Heparin 10 Unit/Ml 5 Ml Flush) 5 ml FLUSH PRN PRN PRN Reason: Flush Stop: 10/29/21 22:53 Last Admin: 10/04/21 16:05 Dose: 5 ml Documented by: Piperacillin Sod/Tazobactam (Sod 3.375 gm/ Dextrose) 115 mls @ 28.75 mls/hr IV Q8H NINA; Protocol Stop: 11/14/21 11:59 Last Infusion: 10/04/21 16:03 Dose: Infused Documented by: Vancomycin HCl 1,250 mg/ (Sodium Chloride) 275 mls @ 200 mls/hr IV Q12H [facility] Stop: 11/15/21 19:59 Insulin Aspart (Insulin Aspart Per Unit) 0 units SC ACHS NINA Stop: 10/30/21 22:14 Last Admin: 10/04/21 12:59 Dose: 6 units Documented by: Insulin Glargine (Insulin Glargine Solostar 100 Units/Ml 3 Ml Pen) 12 units SC DAILY NINA Stop: 11/01/21 08:59 Last Admin: 10/04/21 09:04 Dose: 12 units Documented by: Lactobacillus Acidophilus (Advanced Probiotic 1250 Mg Capsule) 2 cap PO DAILY [facility] Stop: 11/02/21 09:44 Last Admin: 10/04/21 09:06 Dose: 2 cap Documented by: Loratadine (Loratadine 10 Mg Tab) 10 mg PO HS [facility] Stop: 10/30/21 20:59 Last Admin: 10/03/21 20:22 Dose: 10 mg Documented by: Magnesium Hydroxide (Magnesium Hydroxide Susp 30 Ml Udc) 30 ml PO Q6H PRN PRN Reason: Constipation Stop: 10/30/21 21:41 Metoclopramide HCl (Metoclopramide Hcl Inj 5 Mg/Ml 2 Ml Vial) 10 mg IV Q6H PRN PRN Reason: Nausea/Vomiting Stop: 10/29/21 21:48 Miscellaneous (Carbohydrates For Hypoglycemia ) 15 - 30 gm PO UD PRN PRN Reason: Hypoglycemia Treatment Stop: 10/30/21 00:29 Miscellaneous Information (Vancomycin Consult Active) 1 ea N/A UD PRN PRN Reason: Consult Stop: 10/29/21 21:53 Miscellaneous Information (Pharmacy Glycemic Mgmt Consult) 1 ea N/A UD PRN PRN Reason: Consult Stop: 10/29/21 21:59 Miscellaneous Information (Piperacill/Tazobac Consult Active) 1 ea N/A UD PRN PRN Reason: Consult Stop: 10/30/21 20:14 Multivitamins (Multivitamin Tab) 1 tab PO QAM [facility] Stop: 10/30/21 08:59 Last Admin: 10/04/21 09:06 Dose: 1 tab Documented by: Multivitamins/Minerals (Calcium 600mg + Vit D 400 Iu Tab) 1 tab PO BID [facility] Stop: 10/30/21 08:59 Last Admin: 10/04/21 09:06 Dose: 1 tab Documented by: Naloxone HCl (Naloxone Hcl 0.4 Mg/1 Ml Vial/Carp) 0.1 mg IV Q5M PRN PRN Reason: Oversedation/Resp Depression Stop: 10/30/21 21:41 Ondansetron HCl (Ondansetron Inj 2 Mg/Ml 2 Ml Vial) 4 mg IV Q6H PRN PRN Reason: Nausea/Vomiting Stop: 10/29/21 21:48 Oxycodone HCl (Oxycodone Hcl Ir 5 Mg Tab (Immediate Release)) 5 - 10 mg PO Q4H PRN PRN Reason: Pain or Pre PT Stop: 10/14/21 21:41 Last Admin: 10/02/21 22:39 Dose: 5 mg Documented by: Pantoprazole Sodium (Pantoprazole 40 Mg Tab) 40 mg PO QAM [facility] Stop: 10/30/21 08:59 Last Admin: 10/04/21 09:06 Dose: 40 mg Documented by: Sennosides (Senna 8.6 Mg Tab) 17.2 mg PO HS [facility] Stop: 10/30/21 21:41 Last Admin: 10/03/21 20:24 Dose: Not Given Documented by: Zolpidem Tartrate (Zolpidem Tartrate 5 Mg Tab) 5 mg PO HS PRN PRN Reason: Sleep Stop: 10/29/21 21:48
[2021-10-04] MEDS: SENNA 8.6 MG TAB PO SCH (20:17)
[2021-10-04] MEDS: LORATADINE 10 MG TAB PO SCH (20:17)
[2021-10-04] MEDS: ATORVASTATIN 40 MG TAB PO SCH (20:18)
[2021-10-04] MEDS: CITALOPRAM 20 MG TAB PO SCH (20:18)
[2021-10-04] MEDS: VANCOMYCIN HCL 1,250 MG in SODIUM CHLORIDE 0.9% 250 ML IV SCH (20:22)
[2021-10-05] MEDS: oxyCODONE HCL IR 5 MG TAB (IMMEDIATE RELEASE) PO PRN (00:28)
[2021-10-05] MEDS: PIPERACILLIN/TAZOBACTAM 3.375 GM in DEXTROSE 5% 100 ML IV SCH ×2 (04:11→12:42)
[2021-10-05] MEDS: ACETAMINOPHEN 500 MG TAB PO SCH ×3 (05:01→22:02)
[2021-10-05 07:57] LABS: ALC (manual) 0.87 K/uL (1.2-3.4); ANC (manual) 3.14 K/uL (1.4-6.5); Eosinophils # (manual) 0.14 K/uL (0-0.5); Eosinophils % (manual) 3.4 %; Hematocrit (blood only) 23.5 % (37-47); Hemoglobin 7.4 g/dL (12.0-16.0); Lymphocytes # (manual) 0.87 K/uL (1.2-3.4); Lymphocytes % (manual) 20.7 %; Mean Corpuscular Hemoglobin 27.4 pg (25-34); Mean Corpuscular Hgb Conc 31.5 g/dL (32-36); Mean Platelet Volume 9.1 fL (7.4-10.4); Monocytes # (manual) 0.04 K/uL (0.11-0.59); Monocytes % (manual) 0.9 %; Neutrophils # (manual) 3.14 K/uL (1.4-6.5); Platelet Count 301 K/uL (130-400); Polychromasia 1+; RDW Coefficient of Variation 15.2 % (11.5-14.5); RDW Standard Deviation 48.2 fL (36.4-46.3); White Blood Count 4.18 K/uL (4.8-10.8)
--- NOTE | 2021-10-05 08:55 | Orthopedic Progress Note ---
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 cultures pending, currently on Vanco and Zosyn, to discuss with ID once cultures are back--no growth on the cultures to date. Will discuss with medicine for ABX choice today and hopefully be able to discharge later today or at the latest tomorrow. ASA 81mg po bid PT/OT- WBAT, hip precautions Admission and Anticipated Discharge Date Admission Date: September 29, 2021 Subjective Doing well today. No pain in the right hip. No new complaints. Would like to be able to get home as soon as she can. Review of Systems Constitutional: no fever and no chills Respiratory: no cough and no dyspnea Cardiovascular: no chest pain, no dyspnea and no orthopnea Gastrointestinal: no abdominal pain, no nausea and no vomiting Physical Exam Constitutional: WD/WN, vitals as above no acute distress Neck: trachea midline Musculoskeletal: Hip: + surgical incision (ALEXEY dressing functioning. C/D/I.); no surgical drain present (Hemovac removed yesterday.) and no joint line tenderness Skin: no rashes, warm and dry Trauma: no evidence of skin trauma Neurologic: normal touch/pain/proprioception Psychiatric: A+Ox3, euthymic affect Speech: normal rate/rhythm/volume of speech Lymphatic: no cervical or axillary lymphadenopathy Results & Data ([facility]) Vital Signs (Past 12 Hours) Vital Signs Temp Pulse Pulse Resp BP Pulse Ox 10/05/21 07:51 37.0 C 70 16 110/60 95 10/04/21 23:33 36.9 C 87 18 123/70 94
[2021-10-05] MEDS: VANCOMYCIN HCL 1,250 MG in SODIUM CHLORIDE 0.9% 250 ML IV SCH ×2 (09:01→20:16)
[2021-10-05] MEDS: INSULIN GLARGINE SOLOSTAR 100 UNITS/ML 3 ML PEN SC SCH (09:04)
[2021-10-05] MEDS: MULTIVITAMIN TAB PO SCH (09:05)
[2021-10-05] MEDS: PANTOprazole 40 MG TAB PO SCH (09:05)
[2021-10-05] MEDS: ASPIRIN 81 MG ECTAB PO SCH ×2 (09:05→20:20)
[2021-10-05] MEDS: GABAPENTIN 100 MG CAP PO SCH ×2 (09:05→20:19)
[2021-10-05] MEDS: ADVANCED PROBIOTIC 1250 MG CAPSULE PO SCH (09:05)
[2021-10-05] MEDS: CYANOCOBALAMIN (B-12) 500 MCG TABLET PO SCH (09:05)
[2021-10-05] MEDS: CALCIUM 600MG + VIT D 400 IU TAB PO SCH ×2 (09:06→20:19)
[2021-10-05] MEDS: INSULIN ASPART PER UNIT SC SCH ×4 (09:07→20:55)
[2021-10-05] MEDS: DOCUSATE SODIUM 100 MG CAP PO SCH ×2 (09:16→20:16)
--- NOTE | 2021-10-05 16:58 | Hospitalist Progress Note ---
Date of Service October 05, 2021 Assessment & Plan (1) Infection of prosthetic total hip joint: Plan: 70-year-old female with PMH of T2DM, HLD, obesity, myalgia paresthetica, anxiety who had recent right MONICA [08/12/2021] presented 09/30/2021 after referral from outpatient orthopedics due to having a lot of drainage from the surgical site and with a plan for repeat I&D. #. 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 2 weeks [employer] while the patient was visiting her son in [place] she started having increased pain in the right hip associated with not feeling well and mental status changes --> was taken to hospital locally, 90 cc of fluid aspirated from her hip and 2 cultures were sent [1 came back positive for Streptococcus species and other came back Staphylococcus species]---> likely arthroscopic washout was done of her right hip---> following events afterward: ~Was initiated on Vanco and Rocephin while in hospital, discharged with PICC line and IV Rocephin to complete 6 weeks, completed 1 weeks of Rocephin prior to arrival. ~Since that time she continued to have some drainage from her wounds from the surgery. Patient followed up with Dr. Black as an outpatient, due to continued drainage from the operative site, she was admitted in the hospital ---> status post open irrigation debridement with head and liner change 09/30/21. On vancomycin from 09/29 and Zosyn from 09/30, ID consult pending. Operative joint culture 09/30: No growth, final. Will need culture report from [facility]. Ordered medical record request for Rt hip Cx and DC summary at the time. 10/05 reached out to ID via Telephone, assisted iv atb +- rifampin f/b suppressive therapy. Depends on the prior culture report. Can transition zosyn 09/30 to cefazolin 10/05. continue w/ probiotic. Weekly CBC and CMP while on iv antibiotic. f/u w/ ID as OP. #. Likely acute blood loss anemia Postop hemoglobin 9.1, currently hemoglobin 7.4, monitor CBC in a.m. and send iron profile. Patient without sinus symptoms or headache/dizziness/chest pain/palpitation. #. Other chronic medical conditions: DM, GERD, HLD, depression, anxiety Continue with/resume home meds as and when appropriate. #. DVT prophylaxis: Aspirin twice daily, as per Ortho. #. Disposition: Await ID consult, CBC in a.m. [likely iron supplement needed],need C/S of Rt hip from [facility] prior to ATB determination. Admission and Anticipated Discharge Date Admission Date: September 29, 2021 Subjective Patient seen and examined at bedside as a follow-up of likely infected right hip arthroplasty site. Patient was lying in bed, on room air, NAD, no new acute events overnight. Patient reports improvement in the right hip pain. Patient denies any fever/headache/chills/chest pain/palpitation/other review of symptoms. Patient reports somewhat decreased appetite. Physical Exam Physical Exam: GENERAL: Alert and oriented x3. NAD, on RA. HEENT: No pallor, no icterus. Pupils equal, round and reactive to light. Oral mucosa moist. NECK: No JVD, no neck masses. HEART: S1 and S2 heard. Regular rate and rhythm. No murmur, no gallop. RESPIRATORY SYSTEM: Normal AP diameter. No accessory muscle use. No wheezing, no crackles. ABDOMEN: Soft, bowel sounds present, nontender, no distention. CENTRAL NERVOUS SYSTEM: No facial droop. Speech is clear. Obeys simple commands. Moves extremities. EXTREMITIES: No edema, no erythema seen. Rt hip surgical site dressing + Results & Data Results & Data ([facility]) Vital Signs (Past 12 Hours) Vital Signs Temp Pulse Pulse Resp BP Pulse Ox 10/05/21 16:00 36.7 C 80 18 112/70 95 10/05/21 11:17 36.9 C 63 17 110/60 93 10/05/21 07:51 37.0 C 70 16 110/60 95
[2021-10-05] MEDS: ceFAZolin 2000MG 2,000 MG/15 ML SYR IV SCH (20:16)
[2021-10-05] MEDS: SENNA 8.6 MG TAB PO SCH (20:19)
[2021-10-05] MEDS: ATORVASTATIN 40 MG TAB PO SCH (20:20)
[2021-10-05] MEDS: LORATADINE 10 MG TAB PO SCH (20:20)
[2021-10-05] MEDS: CITALOPRAM 20 MG TAB PO SCH (20:20)
[2021-10-06] MEDS: ceFAZolin 2000MG 2,000 MG/15 ML SYR IV SCH ×3 (04:25→20:18)
[2021-10-06] MEDS: ACETAMINOPHEN 500 MG TAB PO SCH ×3 (05:54→21:23)
[2021-10-06 06:46] LABS: Basophils # (auto) 0.02 K/uL (0-0.2); Basophils % (auto) 0.6 %; Eosinophils # (auto) 0.19 K/uL (0-0.5); Eosinophils % (auto) 5.5 %; Hematocrit (blood only) 23.8 % (37-47); Hemoglobin 7.5 g/dL (12.0-16.0); Immature Granulocytes # (auto) 0.02 K/uL (0.00-0.02); Immature Granulocytes % (auto) 0.6 %; Lymphocytes # (auto) 0.97 K/uL (1.2-3.4); Mean Corpuscular Hemoglobin 27.9 pg (25-34); Mean Corpuscular Hgb Conc 31.5 g/dL (32-36); Mean Corpuscular Volume 88.5 fL (80-100); Mean Platelet Volume 9.8 fL (7.4-10.4); Monocytes # (auto) 0.42 K/uL (0.11-0.59); Monocytes % (auto) 12.1 %; Neutrophils # (auto) 1.85 K/uL (1.4-6.5); Neutrophils % (auto) 53.2 %; Platelet Count 277 K/uL (130-400); RDW Coefficient of Variation 14.9 % (11.5-14.5); RDW Standard Deviation 48.3 fL (36.4-46.3); Red Blood Count 2.69 M/uL (4.2-5.4); White Blood Count 3.47 K/uL (4.8-10.8)
[2021-10-06 07:06] LABS: Est GFR (African American) 105.7 ml/min; Est GFR (Non-African American) 91.2 ml/min
[2021-10-06 07:17] LABS: Ferritin 46.1 ng/ml (8-388)
[2021-10-06 07:23] LABS: Folate (Folic Acid) > 22.30 ng/ml (>5.38)
[2021-10-06 07:24] LABS: Vitamin B12 > 1500 pg/ml (180-914)
[2021-10-06 07:27] LABS: RBC Morphology Unremarkable
[2021-10-06] MEDS: VANCOMYCIN HCL 1,250 MG in SODIUM CHLORIDE 0.9% 250 ML IV SCH ×2 (07:48→20:20)
[2021-10-06] MEDS: GABAPENTIN 100 MG CAP PO SCH ×2 (07:58→20:37)
[2021-10-06] MEDS: PANTOprazole 40 MG TAB PO SCH (07:59)
[2021-10-06] MEDS: ADVANCED PROBIOTIC 1250 MG CAPSULE PO SCH (07:59)
[2021-10-06] MEDS: CYANOCOBALAMIN (B-12) 500 MCG TABLET PO SCH (07:59)
[2021-10-06] MEDS: ASPIRIN 81 MG ECTAB PO SCH ×2 (07:59→20:22)
[2021-10-06] MEDS: MULTIVITAMIN TAB PO SCH (07:59)
[2021-10-06] MEDS: DOCUSATE SODIUM 100 MG CAP PO SCH ×2 (07:59→20:31)
[2021-10-06] MEDS: CALCIUM 600MG + VIT D 400 IU TAB PO SCH ×2 (07:59→20:23)
--- NOTE | 2021-10-06 08:51 | Orthopedic Progress Note ---
Date of Service October 06, 2021 Assessment & Plan (1) Infection of prosthetic total hip joint: Plan: POD #6 s/p Right hip incision and drainage with extensive irrigation and debridement and Acetabular liner and femoral head exchange. cultures pending, currently on Vanco and Zosyn, to discuss with ID once cultures are back--no growth on the cultures to date. Cultures from previous aspiration of the hip were placed in the chart. Will have medicine review the previous cultures for antibiotic choice. Hopefully, the patient will be able to discharge today. No ID consult as of yet. ASA 81mg po bid PT/OT- WBAT, hip precautions Admission and Anticipated Discharge Date Admission Date: September 29, 2021 Supervising Physician Co-Signing Physician Notes Patient seen and examined. Agree with RODY Vela's note as above. Patient is doing well after her hip I&D. She denies significant pain. Dressings are clean, dry, intact, no significant erythema in the area. Patient's final antibiotic regimen is still pending. She states that she is scheduled for a telemedicine appointment with infectious diseases at about 2:00 today. Discharge once antibiotic regimen arranged. Subjective Doing well. No complaints today. Would like to be able to go home today. Review of Systems Constitutional: no fever and no chills Respiratory: no cough and no dyspnea Cardiovascular: no chest pain, no dyspnea and no orthopnea Gastrointestinal: no abdominal pain, no nausea and no vomiting Physical Exam Constitutional: WD/WN, vitals as above no acute distress Neck: trachea midline Musculoskeletal: Hip: + surgical incision (ALEXEY dressing functioning. C/D/I.); no surgical drain present (Hemovac removed yesterday.) and no joint line tenderness Skin: no rashes, warm and dry Trauma: no evidence of skin trauma Neurologic: normal touch/pain/proprioception Psychiatric: A+Ox3, euthymic affect Speech: normal rate/rhythm/volume of speech Lymphatic: no cervical or axillary lymphadenopathy Results & Data ([facility]) Vital Signs (Past 12 Hours) Vital Signs Temp Pulse Resp BP Pulse Ox 10/06/21 07:39 36.8 C 83 16 100/61 93 10/05/21 22:04 36.9 C 65 18 130/75 93 Laboratory Results Intraoperative cultures did not have any growth after 5 days. Cultures are finalized. Cultures done at the previous hospital in [place] were sent to HIM to be placed in the chart. Organism: Strep agalactiae Sensitivities to ampicillin, ceftriaxone, clindamycin, Levaquin, vancomycin.
[2021-10-06] MEDS: INSULIN GLARGINE SOLOSTAR 100 UNITS/ML 3 ML PEN SC SCH (08:54)
[2021-10-06] MEDS: INSULIN ASPART PER UNIT SC SCH ×4 (08:55→21:21)
--- NOTE | 2021-10-06 12:51 | Pharmacy Report ---
Pharmacy Glycemic Short Note 2 - Date of Service October 06, 2021 - Glycemic Short BSG Results (Last 24 hours): 10/05/21 10/05/21 10/05/21 17:17 20:06 20:47 POC Glucose 100 H 127 H 141 H 10/06/21 10/06/21 08:22 12:21 POC Glucose 106 H 106 H OUTPATIENT ANTIDIABETIC REGIMEN: * Metformin ER 1000 mg PO BID * Jardiance 25 mg PO daily * HbA1c: 7.1% (09/30/21) ASSESSMENT: 10/06: * BSGs yesterday were [phone] mg/dl, fasting BSG today = 106 mg/dl. * Patient received total 18 units of insulin yesterday: basal 10 units and bolus 8 units. * Basal insulin 10 units was continued this AM but discontinued for tomorrow. * Novolog carb ratio loosened with lunch today to prevent hypoglycemia later today. 10/04 * BSGs yesterday of 164, 143, 144, and 172 mg/dL, fasting BSG of 154 mg/dL * Received 28 units of insulin (10 units of basal and 18 units of prandial/correctional bolus) * Will continue to gradually increase basal insulin today, continue current Novolog parameters * Continues on broad spectrum antibiotics with vancomycin and Zosyn 10/02 * Patient received total of 13 units of insulin yesterday, no basal * Fasting BSG ~170 mg/dL - plan to add low dose basal this AM * Tightened CF/CR slightly 09/30 * 70 y/o F admitted for hip infection and antibiotic therapy. Patient with history of Type 2 diabetes managed at home on oral Metformin and Jardiance. HbA1c= 09/30/21. * Last night BSG was 201 mg/dl. Novolog was started at that time based on wt and stress between 1 and 2. * Patient is NPO for I&D of R hip infection. * Fasting BSG today was 126 mg/dl. Pre-lunch BSG = 132 mg/dl. * So far, patient has not needed any insulin today. Continued Novolog parameters the same. PLAN FOR INPATIENT GLYCEMIC CONTROL: * Hold outpatient oral diabetes medications * Basal insulin - * 10 units today, discontinued for tomorrow * Bolus insulin: loosened CR * NovoLog per scale ACHS or Q6hrs while NPO * Goal Range: Low 110 mg/dL - High 140 mg/dL * Correction Factor: 25 mg/dL/unit * Nutritional / Prandial insulin per carb ratio of 1 unit per 15 grams CHO consumed
--- NOTE | 2021-10-06 18:50 | Hospitalist Progress Note ---
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 #. 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 2 weeks [employer] while the patient was visiting her son in [place] she started having increased pain in the right hip associated with not feeling well and mental status changes --> was taken to hospital locally, 90 cc of fluid aspirated from her hip and 2 cultures were sent [1 came back positive for Streptococcus species and other came back Staphylococcus species]---> likely arthroscopic washout was done of her right hip---> following events afterward: ~Was initiated on Vanco and Rocephin while in hospital, discharged with PICC line and IV Rocephin to complete 6 weeks, completed 1 weeks of Rocephin prior to arrival. ~Since that time she continued to have some drainage from her wounds from the surgery. Patient followed up with Dr. Black as an outpatient, due to continued drainage from the operative site, she was admitted in the hospital ---> status post open irrigation debridement with head and liner change 09/30/21. On vancomycin from 09/29 and Zosyn from 09/30 --> replaced zosyn w/ cefazolin 10/05. Operative joint culture 09/30: No growth, final. Culture report [obtained in the evening today] from [facility] not very clear, mentions about staph panel being positive in blood test and culture report being positive for strep agalactiae Will need to reach out to ID again tomorrow. continue w/ probiotic. Weekly CBC and CMP while on iv antibiotic. f/u w/ ID as OP. Will need 6 weeks of IV antibiotic followed by lifelong p.o. suppressive antibiotic therapy #. Likely acute blood loss anemia Postop hemoglobin 9.1, currently hemoglobin 7.4, monitor CBC in a.m. and iron profile suggestive of iron deficiency. Patient without sinus symptoms or headache/dizziness/chest pain/palpitation. Hemoglobin stable around 7.5, start iron supplement. #. Other chronic medical conditions: DM, GERD, HLD, depression, anxiety Continue with/resume home meds as and when appropriate. #. DVT prophylaxis: Aspirin twice daily, as per Ortho. #. Disposition: Pending final antibiotic determination, pending rediscussion with ID tomorrow since we got the culture report from [facility] today evening. Admission and Anticipated Discharge Date Admission Date: September 29, 2021 Subjective Patient seen and examined at bedside as a follow-up of likely infected right hip arthroplasty site. Patient was lying in bed, on room air, NAD, no new acute events overnight. Patient reports improvement in the right hip pain. Patient denies any fever/headache/chills/chest pain/palpitation/other review of symptoms. Physical Exam Physical Exam: GENERAL: Alert and oriented x3. NAD, on RA. HEENT: No pallor, no icterus. Pupils equal, round and reactive to light. Oral mucosa moist. NECK: No JVD, no neck masses. HEART: S1 and S2 heard. Regular rate and rhythm. No murmur, no gallop. RESPIRATORY SYSTEM: Normal AP diameter. No accessory muscle use. No wheezing, no crackles. ABDOMEN: Soft, bowel sounds present, nontender, no distention. CENTRAL NERVOUS SYSTEM: No facial droop. Speech is clear. Obeys simple commands. Moves extremities. EXTREMITIES: No edema, no erythema seen. Rt hip surgical site dressing + Results & Data Results & Data ([facility]) Vital Signs (Past 12 Hours) Vital Signs Temp Pulse Resp BP Pulse Ox 10/06/21 18:05 74 131/76 10/06/21 07:39 36.8 C 83 16 100/61 93
[2021-10-06] MEDS: SENNA 8.6 MG TAB PO SCH (20:12)
[2021-10-06] MEDS: ATORVASTATIN 40 MG TAB PO SCH (20:23)
[2021-10-06] MEDS: CITALOPRAM 20 MG TAB PO SCH (20:29)
[2021-10-06] MEDS: LORATADINE 10 MG TAB PO SCH (20:30)
[2021-10-07] MEDS: ceFAZolin 2000MG 2,000 MG/15 ML SYR IV SCH ×2 (04:58→11:51)
[2021-10-07] MEDS: ACETAMINOPHEN 500 MG TAB PO SCH (05:32)
--- NOTE | 2021-10-07 06:08 | Communication Note ---
Date of Service: October 07, 2021 Patient's double-lumen PICC line with poor flow/possible blockage as per IV team nurse. Cathflo trial recommended. Will relay to AM provider.
[2021-10-07] MEDS ORDERED: ALTEPLASE, RECOMBINANT 1 MG/ML 2ML VIAL INSTIL ONE ×2 (06:30)
[2021-10-07] MEDS: CALCIUM 600MG + VIT D 400 IU TAB PO SCH (07:50)
[2021-10-07] MEDS: GABAPENTIN 100 MG CAP PO SCH (07:50)
[2021-10-07] MEDS: MULTIVITAMIN TAB PO SCH (07:50)
[2021-10-07] MEDS: ASPIRIN 81 MG ECTAB PO SCH (07:50)
[2021-10-07] MEDS: DOCUSATE SODIUM 100 MG CAP PO SCH (07:50)
[2021-10-07] MEDS: CYANOCOBALAMIN (B-12) 500 MCG TABLET PO SCH (07:50)
[2021-10-07] MEDS: ADVANCED PROBIOTIC 1250 MG CAPSULE PO SCH (07:50)
[2021-10-07] MEDS: PANTOprazole 40 MG TAB PO SCH (07:51)
[2021-10-07 07:57] LABS: Basophils # (auto) 0.02 K/uL (0-0.2); Basophils % (auto) 0.6 %; Eosinophils % (auto) 5.7 %; Hematocrit (blood only) 26.1 % (37-47); Hemoglobin 8.3 g/dL (12.0-16.0); Immature Granulocytes # (auto) 0.01 K/uL (0.00-0.02); Immature Granulocytes % (auto) 0.3 %; Lymphocytes # (auto) 0.82 K/uL (1.2-3.4); Lymphocytes % (auto) 23.4 %; Mean Corpuscular Hemoglobin 27.4 pg (25-34); Mean Corpuscular Hgb Conc 31.8 g/dL (32-36); Mean Corpuscular Volume 86.1 fL (80-100); Mean Platelet Volume 9.3 fL (7.4-10.4); Monocytes # (auto) 0.41 K/uL (0.11-0.59); Monocytes % (auto) 11.7 %; Neutrophils # (auto) 2.04 K/uL (1.4-6.5); Neutrophils % (auto) 58.3 %; Platelet Count 337 K/uL (130-400); RDW Coefficient of Variation 14.9 % (11.5-14.5); RDW Standard Deviation 46.6 fL (36.4-46.3); Red Blood Count 3.03 M/uL (4.2-5.4)
[2021-10-07] MEDS ORDERED: FERROUS SULFATE 325 MG TAB PO SCH (09:00)
[2021-10-07] MEDS: INSULIN ASPART PER UNIT SC SCH ×2 (09:00→12:32)
[2021-10-07] MEDS: VANCOMYCIN HCL 1,250 MG in SODIUM CHLORIDE 0.9% 250 ML IV SCH (09:13)
--- NOTE | 2021-10-07 11:11 | Pharmacy Report ---
Pharmacy Glycemic Short Note 2 - Date of Service October 07, 2021 - Glycemic Short BSG Results (Last 24 hours): 10/06/21 10/06/21 10/06/21 12:21 17:02 20:38 POC Glucose 106 H 106 H 97 10/07/21 07:57 POC Glucose 92 OUTPATIENT ANTIDIABETIC REGIMEN: * Metformin ER 1000 mg PO BID * Jardiance 25 mg PO daily * HbA1c: 7.1% (09/30/21) ASSESSMENT: 10/07: * BSGs yesterday were [phone] mg/dl, fasting BSG today = 92 mg/dl. * Patient received total 11 units of insulin yesterday; 10 units basal + 1 unit bolus. * BSGs are lower than the previous day. Patient had very limited food intake yesterday. * Basal insulin discontinued. Continued with Novolog coverage with meals and HS. 10/06: * BSGs yesterday were [phone] mg/dl, fasting BSG today = 106 mg/dl. * Patient received total 18 units of insulin yesterday: basal 10 units and bolus 8 units. * Basal insulin 10 units was continued this AM but discontinued for tomorrow. * Novolog carb ratio loosened with lunch today to prevent hypoglycemia later today. 10/04 * BSGs yesterday of 164, 143, 144, and 172 mg/dL, fasting BSG of 154 mg/dL * Received 28 units of insulin (10 units of basal and 18 units of prandial/correctional bolus) * Will continue to gradually increase basal insulin today, continue current Novolog parameters * Continues on broad spectrum antibiotics with vancomycin and Zosyn 10/02 * Patient received total of 13 units of insulin yesterday, no basal * Fasting BSG ~170 mg/dL - plan to add low dose basal this AM * Tightened CF/CR slightly 09/30 * 70 y/o F admitted for hip infection and antibiotic therapy. Patient with history of Type 2 diabetes managed at home on oral Metformin and Jardiance. HbA1c= 09/30/21. * Last night BSG was 201 mg/dl. Novolog was started at that time based on wt and stress between 1 and 2. * Patient is NPO for I&D of R hip infection. * Fasting BSG today was 126 mg/dl. Pre-lunch BSG = 132 mg/dl. * So far, patient has not needed any insulin today. Continued Novolog parameters the same. PLAN FOR INPATIENT GLYCEMIC CONTROL: * Hold outpatient oral diabetes medications * Basal insulin - * None * Bolus insulin: * NovoLog per scale ACHS or Q6hrs while NPO * Goal Range: Low 110 mg/dL - High 140 mg/dL * Correction Factor: 25 mg/dL/unit * Nutritional / Prandial insulin per carb ratio of 1 unit per 10 grams CHO consumed
--- NOTE | 2021-10-07 12:38 | Orthopedic Progress Note ---
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 Spoke with Dr. Du of [place] today. The patient had a dose of ceftriaxone. She will then be discharged home on ceftriaxone for 6 weeks starting today. After 6 weeks, she will transition to lifelong oral antibiotic therapy. Order written for weekly CBC with differential, CMP, CRP. Recommendation of follow-up with infectious disease within the next 4 weeks after discharge. ASA 81mg po bid PT/OT- WBAT, hip precautions Discharge planningpatient be discharged home today with home health. Her PICC line is in place and functioning. Admission and Anticipated Discharge Date Admission Date: September 29, 2021 Subjective No pain in the right hip. Doing well today. No new complaints. Review of Systems Constitutional: no fever and no chills Respiratory: no cough and no dyspnea Cardiovascular: no chest pain, no dyspnea and no orthopnea Gastrointestinal: no abdominal pain, no nausea and no vomiting Physical Exam Constitutional: WD/WN, vitals as above no acute distress Neck: trachea midline Musculoskeletal: Hip: + surgical incision (ALEXEY dressing functioning. C/D/I.); no surgical drain present (Hemovac removed yesterday.) and no joint line tenderness Skin: no rashes, warm and dry Trauma: no evidence of skin trauma Neurologic: normal touch/pain/proprioception Psychiatric: A+Ox3, euthymic affect Speech: normal rate/rhythm/volume of speech Lymphatic: no cervical or axillary lymphadenopathy Results & Data ([facility]) Vital Signs (Past 12 Hours) Vital Signs Temp Pulse Resp BP Pulse Ox 10/07/21 07:45 36.6 C 64 17 110/60 96
--- NOTE | 2021-10-07 18:19 | Hospitalist Progress Note ---
Date of Service October 07, 2021 Assessment & Plan (1) Infection of prosthetic total hip joint: Plan: 70-year-old female with PMH of T2DM, HLD, obesity, myalgia paresthetica, anxiety who had recent right MONICA [08/12/2021] presented 09/30/2021 after referral from outpatient orthopedics due to having a lot of drainage from the surgical site and with a plan for repeat I&D. #. 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 2 weeks [employer] while the patient was visiting her son in [place] she started having increased pain in the right hip associated with not feeling well and mental status changes --> was taken to hospital locally, 90 cc of fluid aspirated from her hip and 2 cultures were sent [1 came back positive for Streptococcus species and other came back Staphylococcus species]---> likely arthroscopic washout was done of her right hip---> following events afterward: ~Was initiated on Vanco and Rocephin while in hospital, discharged with PICC line and IV Rocephin to complete 6 weeks, completed 1 weeks of Rocephin prior to arrival. ~Since that time she continued to have some drainage from her wounds from the surgery. Patient followed up with Dr. Black as an outpatient, due to continued drainage from the operative site, she was admitted in the hospital ---> status post open irrigation debridement with head and liner change 09/30/21. On vancomycin from 09/29 and Zosyn from 09/30 --> replaced zosyn w/ cefazolin 10/05. Operative joint culture 09/30: No growth, final. d/w ortho, ID reached out to ortho and recommended skilled nursing iv rocephin f/b lifelong suppresive antibiotic therapy. continue w/ probiotic. Weekly labs while on iv antibiotic. f/u w/ ID as OP in a month time. #. Likely acute blood loss anemia Postop hemoglobin 9.1, currently hemoglobin 7.4, monitor CBC in a.m. and iron profile suggestive of iron deficiency. Patient without sinus symptoms or headache/dizziness/chest pain/palpitation. Hemoglobin stable around 7.5-8, c/w iron supplement. #. Other chronic medical conditions: DM, GERD, HLD, depression, anxiety Continue with/resume home meds as and when appropriate. #. DVT prophylaxis: Aspirin twice daily, as per Ortho. Admission and Anticipated Discharge Date Admission Date: September 29, 2021 Subjective Patient seen and examined at bedside as a follow-up of likely infected right hip arthroplasty site. Patient was lying in bed, on room air, NAD, no new acute events overnight. Patient reports rt hip pain under control. Patient denies any fever/headache/chills/chest pain/palpitation/other review of symptoms. Physical Exam Physical Exam: GENERAL: Alert and oriented x3. NAD, on RA. HEENT: No pallor, no icterus. Pupils equal, round and reactive to light. Oral mucosa moist. NECK: No JVD, no neck masses. HEART: S1 and S2 heard. Regular rate and rhythm. No murmur, no gallop. RESPIRATORY SYSTEM: Normal AP diameter. No accessory muscle use. No wheezing, no crackles. ABDOMEN: Soft, bowel sounds present, nontender, no distention. CENTRAL NERVOUS SYSTEM: No facial droop. Speech is clear. Obeys simple commands. Moves extremities. EXTREMITIES: No edema, no erythema seen. Rt hip surgical site dressing + Results & Data Results & Data ([facility]) Vital Signs (Past 12 Hours) Vital Signs Temp Pulse Pulse Resp BP Pulse Ox 10/07/21 12:42 36.6 C 64 74 17 110/60 96 10/07/21 07:45 36.6 C 64 17 110/60 96
--- NOTE | 2021-10-16 08:09 | Discharge Summary ---
Date of Service October 16, 2021 Admission HPI Per Admitting Provider Patient is a 70-year-old female known to our practice who is status post right total hip arthroplasty by Dr. Kurtis Black in July 2021. Patient states that she was doing well after surgery and had her incision healed up quite well. She had not been having any problems and was actually getting ready to go back to work after several weeks. At that time she decided to go visit her son in [place]. This was approximately 2 weeks ago. While the patient was visiting her son, she began having increased pain in the right hip. At one point she began not feeling well and had mental status changes. She was taken to [facility] in [facility]. They ended up aspirating 90 cc of fluid from her hip. 2 cultures were sent at that time She states that wound culture was sent out of the hospital and one was done in the hospital. One came back Streptococcus species and the other came back staphylococcal species. She was then taken to the OR and what sounds like an arthroscopic washout was done of her right hip. Once that was done, she states she was feeling better. They started the patient on Rocephin daily and arranged for a PICC line and for IV home care. She was thusly discharged home back here in [place]. Since that time she is continue to have some drainage from her wounds from the surgery. She has been continued on her IV Rocephin and she was able to see Dr. Black in the office yesterday. After his examination, he felt the patient was in need of hospital admission with plans for open irrigation debridement with head and liner change. The patient has thusly been admitted for further orthopedic care. Admission Exam Per Admitting Provider Physical Exam: Patient is a 70-year-old white female who appears younger than her stated age. She is alert and oriented x3, no acute distress, pleasant and cooperative. Eyes: PERRL, conjunctivae normal, anicteric sclerae ENMT: external ear and nose normal, oropharynx normal Neck: trachea midline, no thyromegaly Respiratory: normal respiratory effort, lungs clear to auscultation Cardiovascular: RRR, no murmur, no edema Gastrointestinal (Abdomen): normal bowel sounds, soft, nontender, no hepatosplenomegaly Musculoskeletal: On examination of her right lower extremity, she has multiple dressings on her right hip. There are some small wounds that have been sutured secondary to her recent arthroscopic washout of her hip. She also has a dressing over her original hip incision. This is removed revealing a cellulitic area around the shoulder incision as well with some drainage noted. There is no foul odor. The drainage appears slightly purulent. She has good range of motion of her right hip at this time. She has no pain with range of motion or with axial loading. Patient states that she can ambulate weightbearing as tolerated on the hip at this time. She has no increased pain with internal or external rotation, flexion or extension, abduction or adduction. She is nontender at her right knee as well as ankle and has good range of motion of both. Left lower extremity is unaffected and range of motion is within normal limits. Upper extremities are unaffected and she is nontender in the shoulders, elbows and wrists. Range of motion is within normal limits. There is no gross motor or sensory loss seen at this time. Principal Diagnosis Septic right MONICA Discharge Data Allergies Allergy/AdvReac Type Severity Reaction Status Date / Time No Known Allergies Allergy Verified 08/12/21 05:41 Consultations 09/29/21 21:49 Consult Internal Medicine Routine 10/03/21 07:22 Consult Infectious Diseases Routine 10/05/21 17:14 Consult Health Information Management Routine Procedures Performed Operation Date: 09/30/21 07:00 Actual Procedures p Right Hip Incision and Drainage, Acetabular Liner and Femoral Head Change(Right) - Reinier Black DO Hospital Course (1) Infection of prosthetic total hip joint: Patient was admitted on the above-noted date with infection in the right total hip arthroplasty. [facility] Hospitalist service was consulted for medical management. They continue to follow the patient during her stay. Patient had been undergoing ongoing IV antibiotics with Rocephin at the time of her admission. She was taken to the operating room on 09/30/2021 and the noted procedure was performed which she tolerated well. On her first postoperative day she was having minimal complaints. Vital signs were stable and she was afebrile. Cultures are pending. She was continued on IV vancomycin and Zosyn. She was started on PT and OT protocols and continued on DVT prophylaxis and pain management. Of note patient had been transfused 2 units PRBCs on the day of her surgery. Patient continued remained stable during her stay. Her alexey dressing was functioning and intact without much in the way of drainage. Hemovac had been removed by 10/04/2021. She was progressing with her physical therapy. Patient met with infectious disease team on 10/06/2021. Recommendations were for targeted IV antibiotics x6 weeks if staph coccus with addition of rifampin. Followed by 3 months of p.o. antibiotics with question of need for lifelong p.o. antibiotic suppression. If infection not due to Staphylococcus, 6 weeks of IV antibiotics and p.o. antibiotic suppression with no need for rifampin. By 10/07/2021, the patient continue remain stable. Ambulating 250 feet. PICC line was in place and functioning. The decision was for use of ceftriaxone daily for 6 weeks transitioning to p.o. and then lifelong antibiotic therapy. Case management arranged home health services and the patient was discharged home. Total Time Total Time Spent Total Time Spent (In Minutes): 10 Discharge Plan Discharge Items Patient Disposition: Home - Home Health Services Reason For Visit: POTENTIAL R HIP INFECTION Discharge Diagnosis: Septic right total hip arthroplasty Activity: Per Instructions section Weightbearing: Full weightbearing Non-emergency contact: Surgeon Call non-emergency contact if: your pain is not controlled and your temperature is above 101 Follow-up/Referrals: Mee Ortiz PA-C [Primary Care Provider] - (Date & Time 10/14/2021 11:20 AM Provider Demetria Juarez PA-C [facility] ) Diet: Regular Addtl Attending Provider Instructions: ACTIVITY RECOMMENDATIONS: SELF CARE INSTRUCTIONS AFTER TOTAL HIP REPLACEMENT Until the incision and soft tissues around your hip have healed, there is a possibility that the hip prosthesis could dislocate. A. Observe the following precautions to prevent dislocation: 1. Don't bend your hip greater than 90 degrees. 2. Avoid crossing your legs or ankles while standing or lying. 3. Sit with your feet placed 6 inches apart. 4. When sitting, keep your knees below your hips. Sit on a firm surface, avoid deep, soft chairs and couches. Use an elevated toilet seat in the bathroom. 5. Don't bend over at the waist. Use a long handled shoehorn and a sock aid to help you put on your shoes and socks. A c.o.d. biller can help you cloth picker objects that are too high or too low to reach. 6. Keep car riding to a minimum for at least one month after surgery. B. Your balance may be shaky for a while. Use crutches or a walker until directed by your doctor. C. Use hand rails when walking on stairs. D. Wear low heeled shoes with non-slip soles. E. Be sure that your floors are free of things that could trip you - throw rugs, electrical cords, small objects. Avoid wet and waxed floors, especially with crutches and canes. F. Try to walk several times a day with rest periods between. G. Continue with all the exercises taught to you in the hospital. Again, make walking a part of your daily routine. H. It is okay to shower if minimal to no drainage from incision. No baths. Do not soak wound. I. Physical Therapy as instructed by your Physician. J. ALEXEY dressing: You have a ALEXEY dressing on your surgical wound. It will remain in place for 7 days from surgery. You will be provided with a booklet with the do's and don'ts with the dressing in place. After 7 days, the dressing may be removed. If there is drainage from the surgical incision, you may cover the wound with dry dressings. Since the dressing was replaced on 10/04/2021, the new dressing may be removed on 10/11/2021. SPECIAL CARE INSTRUCTIONS: VERY IMPORTANT TO READ AND REVIEW A. You may still be at risk for phlebitis and blood clots. 1. Wear surgical stockings (LIVIER hose) for one month, 20 hours daily, after surgery to improve circulation and reduce swelling. 2. Take Aspirin (blood thinning medications), as directed by your doctor. 3. Have a pro-time (blood test) drawn according to your doctor's instructions. B. We encourage and will assist you in choosing a home-health agency of your choice. Home health nurses and therapists will monitor your temperature, wound healing and progress in exercise and walking. Home health nurses may also draw the blood for the pro-time test. They may instruct you in decreasing or increasing the amount of Coumadin you take. C. You must take antibiotics before having dental work, bladder, bowel and other surgery. Your doctor will provide you with a permanent card to carry describing precautions. D. Call [facility] if you have a temperature of 101 or greater, redness or swelling around the incision, cloudy drainage from incisio n, or sudden increase in pain in your hip, not relieved by your regular pain medication. E. Please call the office at if you have any concerns or questions about your operation or recovery. FOLLOW UP VISIT: If appointment is not already scheduled: Please call [facility] to make a follow-up appointment for 2 weeks after your surgery at . Pending Studies at Discharge: No Stand-Alone Forms: My [facility], Smoking Cessation Medications and DC Order Prescriptions: New ceftriaxone 2 gram recon soln 2 g IV DAILY Qty: 42 RF: 0 ferrous sulfate 325 mg (65 mg iron) tablet 325 mg PO DAILY Qty: 30 RF: 0 Continued multivitamin Tablet 1 tab PO QAM RF: 0 atorvastatin 40 mg Tablet 40 mg PO HS RF: 0 metformin 500 mg Tablet 2,000 mg PO HS RF: 0 cyanocobalamin (vitamin B-12) 1,000 mcg Tablet 1,000 mcg PO QAM RF: 0 citalopram 20 mg Tablet 20 mg PO HS RF: 0 gabapentin 100 mg Capsule 100 - 200 mg PO BID RF: 0 omega-3 fatty acids Capsule 1,000 mg PO BID RF: 0 calcium carbonate-vitamin D3 [Calcium 600 + D(3)] 600 mg-10 mcg (400 unit) Tablet 1 tab PO BID RF: 0 Jardiance 25 mg Tablet 25 mg PO QAM RF: 0 Claritin 10 mg Tablet,Chewable 10 mg PO HS RF: 0 albuterol sulfate 90 mcg/actuation Hfa Aerosol Inhaler 2 puff INHALATION 6XD PRN (Reason: Wheezing) RF: 0 acetaminophen [Tylenol Extra Strength] 500 mg Tablet 1,000 mg PO Q8 Qty: 100 RF: 0 aspirin 81 mg Tablet,Delayed Release (Dr/Ec) 81 mg PO BID Qty: 60 RF: 0 celecoxib [Celebrex] 200 mg Capsule 200 mg PO BID Qty: 60 RF: 0 oxycodone 5 mg Tablet 5 mg PO Q4H PRN (Reason: pain) Qty: 20 RF: 0 Discharge Orders: Discharge Order (Routine); Ordered 10/07/21 Ordered By: Gage Anne/Other Patient Handouts: DVT Post Op Prevention, Managing Type 2 Diabetes, 5 Steps for Eating Healthier Admission Data Admit Date/Time: 09/29/21 21:49 Attending Provider: Reinier Black Admit Provider: Reinier Black Primary Care Provider: Mee Ortiz Other Providers: Tara Hampton ; Shankar Xie ; Funmi Tony ; Tona Broderick ; Monse Moses ; Beverly Loza ; Tip Trent ; Sha Jose ; Mayco Corbett ; Caridad Arias ; Goldy Baumann ; Geneva Begum ; Anny Bravo ; Molina Darnell ; Iram Silva ; Reyna Cruz ; Sepideh Saini ; Rita Ulloa I. ; Pino Bermudez ; Eileen Barron ; Ashley Russell ; Ankush Gerber ; Juan Toledo ; John Costa ; Josh Garcia ; Gelacio San ; Kiran Loza I. ; Power Almazan II ; Dot Reed ; Margarito Wilde ; Clay Du Other Interventions: Discharge Summary Assessment (RN) Last Done: 10/07/21 12:42
== END 2021-10-07 14:35 | disposition home health service (06) | DRG 467 ==
LOC: 3W 20:15